=== PATIENT | male | born 1940 | race Caucasian/White ===

== ENCOUNTER 2016-09-21 22:51 | Inpatient (IN) ==
--- NOTE | 2016-09-22 02:07 | Internal Med History&Physical ---
<JosesitoAurora Ann - Last Filed: 09/22/16 04:24> Date of Encounter: 09/22/16 Time of Encounter: 01:56 Assessment and Plan (1) Pneumonia Current visit: No Status: Suspected CXR with b/l infiltration vs edema WBC 12.6 start levoquin bronchodilator therapy IV steroids Respiratory panel flu- supportive care O2 as needed for O2>92 Qualifiers: Pneumonia type: due to unspecified organism Laterality: bilateral Lung location: unspecified part of lung Qualified Code(s): J18.9 - Pneumonia, unspecified organism (2) Respiratory distress Current visit: Yes Status: Acute infectious vs cardiac vs pulm edema, atelectasis, pulmonary vasculature hypoxia on ABG:pH 7.46 with pO2 of 60 EKG with A fib RVR CTA monitor renal fxn ECHO RIP panel O2 as needed abx steriods bronchodilator therapy supportive care (3) Suspected respiratory disease Current visit: Yes Status: Acute (4) Leukocytosis Current visit: Yes Status: Acute WBC 12.6 abx recheck labs Qualifiers: Leukocytosis type: unspecified Qualified Code(s): D72.829 - Elevated white blood cell count, unspecified (5) Tobacco abuse Current visit: Yes Status: Acute nicotine patch prn (6) Dysarthria Current visit: Yes Status: Acute uncertain etiology: previous CVA vs underlying cognitive impairment no focal deficits (7) Atrial fibrillation with RVR Current visit: No Status: Chronic continue home meds (8) History of stroke Current visit: Yes Status: Acute (9) HTN (hypertension) Current visit: Yes Status: Acute (10) Hypothyroid Current visit: Yes Status: Acute Internal Medicine - H&P: HPI Chief complaint: dyspnea Admitted From: Emergency Dept Plans for Post Hospital Care: Home History of present illness: Mr. Phillips is a 75 year old male transferred from [place]. PMHx afib, HTN, strokex2,DM c/o dyspnea and increased work of breathing for 3-4 days. pt states that he has been short of breath, has been working harder to breath with an increased rate of respiration. He has also had a non productive cough, increased fatigue with decreased appetite. States he has been sleeping much more than usual and is still feeling unrested and has "felt warm" Pt states that leaning forward and laying flat in bed make his shortness of breath worse. Sitting straight improve it somewhat. Pt denies trauma,falls,headache, change in vision, chills, CP, palpitations, abd pain, change in urinary or bM Past Med Surg Social Fam HX - Past Medical History Medical history: atrial fibrillation, CVA, diabetes, GERD, hyperlipidemia, hypertension, thyroid disease, other Psychiatric history: no psych history - Social History Smoking Status: Current every day smoker Packs per day: .5-1ppd Smokeless Tobacco Status: No Alcohol use: none Drug use: none Current living situation: Home, With Family - Family History Mother Living Status: Hx Family Cardiac Disorders: Yes Hx Family Respiratory Disorders: No Hx Family Cancer: No Hx Family GI Disorders: No Hx Family Genitourinary Disorders: No Hx Family Endocrine Disorder: No Hx Family Musculoskeletal Disorders: No Hx Family Neuromuscular Disorders: No Hx Family Neurologic Disorders: No Hx Family HEENT Disorders: No Hx Family Autoimmune Disorders: No Hx Family Reproductive Disorders: No Hx Family Psychosocial Disorders: No Hx Family Medical Disorders: No Father Living Status: Hx Family Cardiac Disorders: No Hx Family Respiratory Disorders: No Hx Family Cancer: No Hx Family GI Disorders: No Hx Family Genitourinary Disorders: No Hx Family Endocrine Disorder: Yes (DM) Hx Family Musculoskeletal Disorders: No Hx Family Neuromuscular Disorders: No Hx Family Neurologic Disorders: No Hx Family HEENT Disorders: No Hx Family Autoimmune Disorders: No Hx Family Reproductive Disorders: No Hx Family Psychosocial Disorders: No Hx Family Medical Disorders: No Internal Medicine - H&P: Meds Allopurinol [Zyloprim 100 MG] 100 mg PO DAILY 09/21/16 [History] Aspirin [Ecotrin] 325 mg PO DAILY 09/21/16 [History] Digoxin [Lanoxin] 0.25 mg PO DAILY 09/21/16 [History] Diltiazem CD (24hr) [Cardizem CD] 240 mg PO DAILY 09/21/16 [History] Docusate [Colace] 100 mg PO TID 09/21/16 [History] Gemfibrozil [Lopid] 600 mg PO BIDWM 09/21/16 [History] GlipiZIDE [Glipizide ER] 10 mg PO BID 09/21/16 [History] Hydrochlorothiazide 25 mg PO DAILY 09/21/16 [History] Levothyroxine [Synthroid] 25 mcg PO DAILY 09/21/16 [History] Lisinopril [Zestril] 20 mg PO DAILY 09/21/16 [History] Metformin HCl [Glucophage] 1,000 mg PO BID 09/21/16 [History] Metoprolol [Lopressor] 50 mg PO BID 09/21/16 [History] Polyethylene Glycol 3350 [MiraLAX Powder Bulk 17.9 Oz] 1 scoop PO DAILY [History] Pravastatin Sodium [Pravachol] 40 mg PO HS 09/21/16 [History] Warfarin [Coumadin] 5 mg PO 1800 09/21/16 [History] Allergies No Known Allergies Allergy (Verified 09/21/16 20:05) All Systems PM: A 10-system review of systems was performed and is negative for pertinent findings except as documented above in the HPI. - Constitutional Constitutional: fatigue, weakness, no chills, no fever(s), no falls - EENT Eyes: no change in vision, no pain - Cardiovascular Cardiovascular ROS IM: irregular heart rhythm (chronic), no chest pain, no diaphoresis, no edema, no lightheadedness - Respiratory Respiratory: cough (dry), dyspnea, dyspnea on exertion, no hemoptysis, no pain on inspiration, no excessive phlegm production, no pain with cough - Gastrointestinal Gastrointestinal: no abdominal pain, no constipation, no diarrhea, no nausea, no vomiting - Genitourinary Genitourinary ROS male: no dysuria, no flank pain - Musculoskeletal Musculoskeletal ROS IM: no numbness, no tingling - Integumentary Integumentary IM: no rash, no unusual bruising - Neurological Neurological ROS: no frequent falls, no headache(s) - Psychiatric Psychiatric: abnormal sleep pattern (increased fatigue and sleep) - Constitutional Vitals: Temp Pulse Resp BP Pulse Ox 97.5 F L 96 20 135/85 93 L 09/22/16 01:02 09/22/16 01:02 09/22/16 01:02 09/22/16 01:02 09/22/16 01:02 General appearance: Present: cooperative, no acute distress - Head Head exam: Present: atraumatic, normocephalic - Eye Eye exam: Present: EOMI, conjuntiva pink, sclera anicteric - ENT ENT exam: Present: mucous membranes moist - Neck Neck exam general surgery: Present: full ROM - Respiratory Respiratory exam: Present: decreased breath sounds, rales (in b/l bases, fine crackles ), tachypnea (mild). Absent: accessory muscle use, chest wall tenderness, wheezes - Expanded Respiratory Exam Location: decreased breath sounds: Left, Right, Lower, rales: Left, Right, Lower (with fine crackles) - Cardiovascular Cardiovascular exam: Present: irregular rhythm, RRR, +S1, +S2. Absent: JVD - GI/Abdominal GI/Abdominal exam: Present: normal bowel sounds, soft, no peritoneal signs. Absent: tenderness - Extremities Exam Extremities exam: Present: warm. Absent: calf tenderness, cyanotic, pedal edema - Neurological Exam Neurological exam: Present: alert, speech deficit (dsyarthria, memory difficulty ). Absent: facial droop - Expanded Neurological Exam Neurological exam expanded: Present: memory loss-recent event, memory loss- remote event - Skin Skin exam: Present: pallor Additional comments: eccymosis and bruising on B/L UE <Adonis Patterson - Last Filed: 09/22/16 06:36> Assessment and Plan (1) Acute and chronic respiratory failure with hypoxia Current visit: Yes Status: Acute . (2) SIRS due to infectious process with acute organ dysfunction Current visit: Yes Status: Acute . (3) Interstitial pneumonitis Current visit: Yes Status: Acute . (4) CVA, old, cognitive deficits Current visit: Yes Status: Chronic . (5) CVA, old, dysarthria Current visit: Yes Status: Chronic . (6) CVA, old, hemiparesis Current visit: Yes Status: Chronic . (7) HLD (hyperlipidemia) Current visit: Yes Status: Chronic . Qualifiers: Hyperlipidemia type: unspecified Qualified Code(s): E78.5 - Hyperlipidemia , unspecified (8) Nicotine dependence with nicotine-induced disorder Current visit: Yes Status: Chronic . Qualifiers: Nicotine product type: cigarettes Qualified Code(s): F17.219 - Nicotine dependence, cigarettes, with unspecified nicotine-induced disorders (9) Type 2 diabetes mellitus Current visit: Yes Status: Chronic . Qualifiers: Diabetes mellitus complication status: with unspecified complications Diabetes mellitus termite treater insulin use: without termite treater use Qualified Code( s): E11.8 - Type 2 diabetes mellitus with unspecified complications (10) Chronic atrial fibrillation Current visit: Yes Status: Chronic . (11) Acute bronchitis and bronchiolitis Current visit: Yes Status: Acute . (12) Chronic anticoagulation Current visit: Yes Status: Chronic . (13) Anemia Current visit: Yes Status: Chronic . Qualifiers: Anemia type: unspecified type Qualified Code(s): D64.9 - Anemia, unspecified (14) Lactic acid acidosis Current visit: Yes Status: Acute . (15) Elevated brain natriuretic peptide (BNP) level Current visit: Yes Status: Acute . (16) Dehydration Current visit: Yes Status: Acute . (17) Diabetes mellitus with proteinuric diabetic nephropathy Current visit: Yes Status: Chronic . (18) CAP (community acquired pneumonia) Current visit: Yes Status: Acute . (19) Debility, unspecified Current visit: Yes Status: Chronic . (20) At risk for acid-base imbalance Current visit: Yes Status: Acute . (21) At risk for accident in home Current visit: Yes Status: Acute . (22) At risk for abnormal gastrointestinal motility Current visit: Yes Status: Acute . (23) At risk for abnormal blood glucose level Current visit: Yes Status: Acute . (24) At risk for acute ischemic cardiac event Current visit: Yes Status: Acute . (25) At risk for acute confusion Current visit: Yes Status: Acute . (26) At risk for activity intolerance Current visit: Yes Status: Acute . (27) Atrial fibrillation with RVR Current visit: Yes Status: Acute (28) HTN (hypertension) Current visit: Yes Status: Chronic Qualifiers: Hypertension type: unspecified secondary hypertension Qualified Code(s): I15.9 - Secondary hypertension, unspecified; I15 - Secondary hypertension (29) Hypothyroid Current visit: Yes Status: Chronic Qualifiers: Hypothyroidism type: unspecified Qualified Code(s): E03.9 - Hypothyroidism , unspecified Internal Medicine - H&P: HPI Admitted From: Hospital to Hospital Transfer (Hospital transfer from [facility] ED) History of present illness: Mr. Phillips is a 75 year old male was admitted to [facility] as a hospital to hospital transfer from [facility] E and a persistent nonproductive cough. D where he presented the coronary family via EMS services from home with complaints of aggressive difficulty in breathing. Initial pulse oximetry measurements were low in the 70-80% range necessitating initiation of supplemental oxygen and ultimately BiPAP therapy. He was febrile, incontinent of urine, generally weak with decline in ability to complete independent activities of daily living. Patient's history is complicated by late manifestations of old cerebrovascular accidents x2. He is reported to be compliant with his Coumadin therapy and management of his increased risk for embolic strokes due to his chronic atrial fibrillation. He continues to smoke however. Presents with apparent acute on chronic hypoxic respiratory failure in the setting of acute on chronic bronchitis-bronchiolitis exacerbation. Systemic inflammatory response syndrome and sepsis criteria are present upon admission. The patient was visited and interviewed and examined. I examined this patient and my medical decision-making was reviewed with the Resident Physician, Dr. Aurora Bellamy. For this encounter, I have reviewed the documentation, treatment plan, and medical decision making. I agree with the documented findings, disposition and treatment plan as described except to the extent set forth below. Cumulative laboratory and radiographic database was reviewed, considered and discussed. Given the patient's presenting concerns, past medical history, clinical findings and symptoms, he is admitted at this time to undergo further evaluation and disposition. Past Med Surg Social Fam HX - Past Medical History Source: patient, old records reviewed, obtained from family Medical history: arthritis, atrial fibrillation, COPD, CVA, diabetes, GERD, hyperlipidemia, hypertension, thyroid disease, other (Chronic constipation. Hyperuricemia. History of gout. Chronic anticoagulation.) Psychiatric history: other - Past Surgical History Surgical History: cataract, orthopedic, other (Lumbar spine surgery.), other - Social History Smoking Status: Current every day smoker Packs per day: .5-1ppd+ >50yrs Occupational status: retired Current living situation: Home, With Family Activity Level: Independent ambulation, Uses cane/walker, Mostly sedentary Recent Out of Country Travel Within the Last 8 Weeks: No Exposure or Possible Exposure to Illness During Travel: No All Systems PM: A 10-system review of systems was performed and is negative for pertinent findings except as documented above in the HPI. - Constitutional Vitals: Temp Pulse Resp BP Pulse Ox 98.2 F 72 18 116/77 92 L 09/22/16 03:40 09/22/16 03:40 09/22/16 04:13 09/22/16 03:40 09/22/16 04:16 Internal Med - H&P Results - Labs CBC & Chem 7: 09/22/16 04:29 09/22/16 04:29 Labs: Short CBC 09/22/16 Range/Units 04:29 WBC 11.2 H (4.3-11.1) K/mcL Hgb 10.3 L (12.9-16.9) g/dL Hct 33.5 L (37.5-50.1) % Plt Count 386 (140-400) K/mcL Neutrophils # 7.4 (1.6-8.9) K/mcL BMP 09/22/16 04:29 Sodium 137 Potassium 4.3 Chloride 104 Carbon Dioxide 22 BUN 15 Creatinine 0.81 Glucose 179 H Calcium 8.3 L Cardiac Enzymes 09/22/16 Range/Units 04:29 Troponin I 0.02 (0-0.03) ng/mL Liver Function 09/22/16 Range/Units 04:29 Total Bilirubin 0.4 (0.2-1.2) mg/dL AST 10 (5-34) Units/L ALT < 6 (0-55) Units/L Alkaline Phosphatase 57 (38-126) Units/L Albumin 2.4 L (3.5-5.0) g/dL Vital Signs Temp Pulse Resp BP Pulse Ox 09/22/16 04:16 92 L 09/22/16 04:13 18 92 L 09/22/16 03:40 98.2 F 72 20 116/77 93 L 09/22/16 01:02 97.5 F L 96 20 135/85 93 L Intake and Output 09/21/16 09/21/16 09/22/16 15:59 23:59 07:59 Other: Weight 86 kg Blood Glucose* 177 Patient Weight 09/22/16 23:59 Weight 86 kg 09/22/16 04:10 ABG pH 7.46 H ABG pCO2 34 L ABG pO2 55 L ABG HCO3 24.2 ABG Total CO2 25.2 ABG O2 Saturation 90 L ABG Base Excess 0.8 Abnormal lab results WBC 11.2 K/mcL (4.3-11.1) H 09/22/16 04:29 RBC 3.90 M/mcL (4.19-5.50) L 09/22/16 04:29 Hgb 10.3 g/dL (12.9-16.9) L 09/22/16 04:29 Hct 33.5 % (37.5-50.1) L 09/22/16 04:29 MCH 26.4 pg (28.0-33.3) L 09/22/16 04:29 MCHC 30.7 g/dL (31.6-35.5) L 09/22/16 04:29 RDW 14.6 % (11.5-14.5) H 09/22/16 04:29 APTT 44.6 Seconds (26.0-36.0) H 09/22/16 04:29 ABG pH 7.46 pH Units (7.32-7.45) H 09/22/16 04:10 ABG pCO2 34 mmHg (35-45) L 09/22/16 04:10 ABG pO2 55 mmHg (85-104) L 09/22/16 04:10 ABG O2 Saturation 90 % (95-98) L 09/22/16 04:10 Glucose 179 mg/dL (70-99) H 09/22/16 04:29 Calcium 8.3 mg/dL (8.6-10.8) L 09/22/16 04:29 Albumin 2.4 g/dL (3.5-5.0) L 09/22/16 04:29 Globulin 4.7 g/dL (2.4-3.5) H 09/22/16 04:29 Albumin/Globulin Ratio 0.5 (1.1-2.2) L 09/22/16 04:29 Allergies Allergy/AdvReac Type Severity Reaction Status Date / Time No Known Allergies Allergy Verified 09/21/16 20:05 Laboratory Results WBC 11.2 K/mcL (4.3-11.1) H 09/22/16 04:29 RBC 3.90 M/mcL (4.19-5.50) L 09/22/16 04:29 Hgb 10.3 g/dL (12.9-16.9) L 09/22/16 04:29 Hct 33.5 % (37.5-50.1) L 09/22/16 04:29 MCV 85.9 fL (83.0-100.0) 09/22/16 04:29 MCH 26.4 pg (28.0-33.3) L 09/22/16 04:29 MCHC 30.7 g/dL (31.6-35.5) L 09/22/16 04:29 RDW 14.6 % (11.5-14.5) H 09/22/16 04:29 Plt Count 386 K/mcL (140-400) 09/22/16 04:29 MPV 10.5 fL (9.4-12.4) 09/22/16 04:29 Immature Gran % 0.8 % (0-4) 09/22/16 04:29 Seg Neutrophils % 66.3 % 09/22/16 04:29 Lymphocytes % 20.5 % 09/22/16 04:29 Monocytes % 10.3 % 09/22/16 04:29 Eosinophils % 1.5 % 09/22/16 04:29 Basophils % 0.6 % 09/22/16 04:29 Neutrophils # 7.4 K/mcL (1.6-8.9) 09/22/16 04:29 Lymphocytes # 2.3 K/mcL (0.6-4.6) 09/22/16 04:29 Monocytes # 1.2 K/mcL (0.0-1.3) 09/22/16 04:29 Eosinophils # 0.2 K/mcL (0.0-0.6) 09/22/16 04:29 Basophils # 0.1 K/mcL (0.0-0.2) 09/22/16 04:29 APTT 44.6 Seconds (26.0-36.0) H 09/22/16 04:29 ABG pH 7.46 pH Units (7.32-7.45) H 09/22/16 04:10 ABG pCO2 34 mmHg (35-45) L 09/22/16 04:10 ABG pO2 55 mmHg (85-104) L 09/22/16 04:10 ABG HCO3 24.2 mEQ/L (21-27) 09/22/16 04:10 ABG Total CO2 25.2 mEq/L (20-26) 09/22/16 04:10 ABG O2 Saturation 90 % (95-98) L 09/22/16 04:10 ABG Base Excess 0.8 mEq/L (-2.0 to 3.0) 09/22/16 04:10 Blood Gas Modality nc 09/22/16 04:10 Inspired O2 36 % 09/22/16 04:10 Sodium 137 mEq/L (136-145) 09/22/16 04:29 Potassium 4.3 mEq/L (3.5-4.5) 09/22/16 04:29 Chloride 104 mEq/L (98-109) 09/22/16 04:29 Carbon Dioxide 22 mEq/L (19-29) 09/22/16 04:29 BUN 15 mg/dL (8-26) 09/22/16 04:29 Creatinine 0.81 mg/dL (0.72-1.25) 09/22/16 04:29 Est GFR ( Amer) > 60 (> 60) 09/22/16 04:29 Est GFR (Non-Af Amer) > 60 (> 60) 09/22/16 04:29 BUN/Creatinine Ratio 19 (6-26) 09/22/16 04:29 Glucose 179 mg/dL (70-99) H 09/22/16 04:29 Calculated Osmolality 289 (280-300) 09/22/16 04:29 Calcium 8.3 mg/dL (8.6-10.8) L 09/22/16 04:29 Total Bilirubin 0.4 mg/dL (0.2-1.2) 09/22/16 04:29 AST 10 Units/L (5-34) 09/22/16 04:29 ALT < 6 Units/L (0-55) 09/22/16 04:29 Alkaline Phosphatase 57 Units/L (38-126) 09/22/16 04:29 Troponin I 0.02 ng/mL (0-0.03) 09/22/16 04:29 Serum Total Protein 7.1 g/dL (6.0-8.3) 09/22/16 04:29 Albumin 2.4 g/dL (3.5-5.0) L 09/22/16 04:29 Globulin 4.7 g/dL (2.4-3.5) H 09/22/16 04:29 Albumin/Globulin Ratio 0.5 (1.1-2.2) L 09/22/16 04:29 - ABG Interpretation ABG results: 09/22/16 04:10 ABG pH 7.46 H ABG pCO2 34 L ABG pO2 55 L ABG HCO3 24.2 ABG Total CO2 25.2 ABG O2 Saturation 90 L ABG Base Excess 0.8 - Attending Attestation My signature below is to certify that this patient is under my care and that I, or the Resident Physician, Dr. Aurora Bellamy, working with me, has had a face -to-face encounter with this patient. Care has been reviewed and discussed in detail with the patient and family. Questions addressed. Advanced directive discussion briefly addressed. The patient does not declare any restrictions at this time. Outpatient medication schedules, confirmed to facilitate its appropriate. Reconciliation of home treatments including adjustments, substitutions and reintroduction into the treatment regimen will address necessary maintenance therapies for chronic pre-existing medical conditions. Smoke cessation counseling briefly addressed. Patient accepts nicotine substitution during this hospitalization. Hospital course will be dictated by clinical findings, treatment response and potential consultative interventions. Consultative opinions will be sought as clinical circumstances justify. The patient is at risk for further clinical decline and morbidity given his presenting complaint, findings and comorbidities. The condition is serious. Prognosis is guarded. CODE STATUS is reported as full.
[2016-09-22] MEDS ORDERED: Acetaminophen 325 MG TABLET PO PRN (03:02)
[2016-09-22] MEDS ORDERED: *HR* Promethazine 25 MG/ML VIAL IVP PRN (03:02)
[2016-09-22] MEDS ORDERED: methylPREDNISolone 125 MG/2 ML VIAL IVP ONE (03:18)
[2016-09-22] MEDS ORDERED: Albuterol 2.5 MG/3 ML NEBULIZER IH PRN (04:02)
[2016-09-22] MEDS: Ipratropium/Albuterol Neb 3 ML IH SCH ×4 (04:12→23:10)
[2016-09-22] MEDS ORDERED: Nicotine 21 MG PATCH.TD24 TD PRN (04:25)
[2016-09-22] MEDS ORDERED: D5% in Water 1,000 ML IV PRN (04:28)
[2016-09-22] MEDS ORDERED: *HR* Dextrose 50 % in Water (Syg) 50 ML SYRINGE IVP PRN (04:28)
[2016-09-22] MEDS ORDERED: Dextrose Gel 15 GM PO PRN ×2 (04:28)
[2016-09-22 04:31] LABS: ABG Base Excess 0.8 mEq/L (-2.0 to 3.0); ABG HCO3 24.2 mEQ/L (21-27); ABG Oxygen Saturation 90 % (95-98); ABG PCO2 34 mmHg (35-45); ABG PH 7.46 pH Units (7.32-7.45); ABG PO2 55 mmHg (85-104); ABG TCO2 25.2 mEq/L (20-26)
[2016-09-22 04:34] LABS: Blood Gas FiO2 36 %
[2016-09-22 05:12] LABS: Basophils # 0.1 K/mcL (0.0-0.2); Basophils % 0.6 %; Eosinophils # 0.2 K/mcL (0.0-0.6); Eosinophils % 1.5 %; Hematocrit 33.5 % (37.5-50.1); Hemoglobin 10.3 g/dL (12.9-16.9); Immature Granulocytes % 0.8 % (0-4); Lymphocytes # 2.3 K/mcL (0.6-4.6); Lymphocytes % 20.5 %; Mean Corpuscular HGB Conc 30.7 g/dL (31.6-35.5); Mean Corpuscular Hemoglobin 26.4 pg (28.0-33.3); Mean Corpuscular Volume 85.9 fL (83.0-100.0); Mean Platelet Volume 10.5 fL (9.4-12.4); Monocytes # 1.2 K/mcL (0.0-1.3); Monocytes % 10.3 %; Neutrophils # 7.4 K/mcL (1.6-8.9); Platelet Count 386 K/mcL (140-400); Red Cell Distribution Width 14.6 % (11.5-14.5); Segmented Neutrophils % 66.3 %
[2016-09-22 05:28] LABS: Activated Partial Thrombo Time 44.6 Seconds (26.0-36.0)
[2016-09-22 05:34] LABS: Albumin 2.4 g/dL (3.5-5.0); Albumin/Globulin Ratio 0.5 (1.1-2.2); Alkaline Phosphatase 57 Units/L (38-126); Aspartate Amino Transferase 10 Units/L (5-34); BUN/Creatinine Ratio 19 (6-26); Bilirubin,Total 0.4 mg/dL (0.2-1.2); Blood Urea Nitrogen 15 mg/dL (8-26); Calcium 8.3 mg/dL (8.6-10.8); Carbon Dioxide 22 mEq/L (19-29); Chloride 104 mEq/L (98-109); Globulin 4.7 g/dL (2.4-3.5); Glucose 179 mg/dL (70-99); Osmolality,Calculated 289 (280-300); Potassium 4.3 mEq/L (3.5-4.5); Sodium 137 mEq/L (136-145); Total Protein 7.1 g/dL (6.0-8.3); eGFR For African Americans > 60 (> 60); eGFR For Non-African Americans > 60 (> 60)
[2016-09-22 05:37] LABS: Alanine Aminotransferase < 6 Units/L (0-55)
[2016-09-22] MEDS ORDERED: Naloxone 0.4 MG/ML INJ IVP PRN (05:48)
[2016-09-22] MEDS ORDERED: *HR* Morphine 2 MG/ML SYRINGE IVP PRN (05:48)
[2016-09-22] MEDS ORDERED: *HR* OxyCODONE Immed Rel 5 MG TABLET PO PRN ×3 (05:48→14:13)
[2016-09-22] MEDS ORDERED: 0.9 % Sodium Chloride 1,000 ML IVC SCH (06:00)
[2016-09-22] MEDS ORDERED: Insulin LISPRO 300 UNITS/3 ML VIAL SQ SCH (06:00)
[2016-09-22] MEDS ORDERED: Benzonatate 100 MG CAPSULE PO PRN (06:37)
[2016-09-22] MEDS: MethylPREDNISolone 40 MG/ML VIAL IVP SCH ×3 (06:41→17:42)
[2016-09-22] MEDS ORDERED: MethylPREDNISolone 40 MG/ML VIAL IVP SCH (08:00)
[2016-09-22 08:19] LABS: Adenovirus Not Detected (Not Detect); Bordetella Pertussis Not Detected (Not Detect); Chlamydophila pneumoniae Not Detected (Not Detect); Coronavirus 229E Not Detected (Not Detect); Coronavirus HKU1 Not Detected (Not Detect); Coronavirus NL63 Not Detected (Not Detect); Coronavirus OC43 Not Detected (Not Detect); Human Metapneumovirus Not Detected (Not Detect); Human Rhinovirus/Enterovirus Not Detected (Not Detect); Influenza A Subtype 2009 H1 Not Detected (Not Detect); Influenza A Untypeable Not Detected (Not Detect); Influenza B Not Detected (Not Detect); Mycoplasma pneumoniae Not Detected (Not Detect); Parainfluenza Virus 1 Not Detected (Not Detect); Parainfluenza Virus 2 Not Detected (Not Detect); Parainfluenza Virus 3 Not Detected (Not Detect); Parainfluenza Virus 4 Not Detected (Not Detect); Respiratory Syncytial Virus Not Detected (Not Detect)
[2016-09-22] MEDS: hydroCHLOROthiazide 25 MG TABLET PO SCH (08:42)
[2016-09-22] MEDS: Lisinopril 20 MG TABLET PO SCH (08:43)
[2016-09-22] MEDS: Insulin LISPRO 300 UNITS/3 ML VIAL SQ SCH ×4 (08:59→22:24)
[2016-09-22] MEDS ORDERED: Levothyroxine 25 MCG TABLET PO SCH (09:00)
[2016-09-22] MEDS: Diltiazem CD (24hr) 240 MG CAPSULE PO SCH (09:28)
[2016-09-22] MEDS: *HR* Digoxin 0.25 MG TABLET PO SCH (09:28)
[2016-09-22] MEDS: Levofloxacin 750 MG/150 ML 750 MG/150 ML BAG IVPB SCH (09:35)
--- NOTE | 2016-09-22 09:40 | Internal Med Progress Note ---
Date of Encounter: 09/22/16 Time of Encounter: 09:38 - Assessment and plan (1) Sepsis Current Visit: Yes Status: Acute Assessment and plan: Hypoxic respiratory failure secondary to acute pulmonary edema from possible CHF diastolic versus systolic exacerbated by acute on chronic atrial fibrillation with rapid ventricular response versus acute COPD exacerbation secondary to sepsis due to community-acquired pneumonia Start Lasix iv , strict I's and O's CT scan of the chest ordered Continue Levaquin, continue Solu-Medrol and oxygen therapy Tests for Legionella and Streptococcus, was negative for viral panel Discontinue IV fluids, echocardiogram ordered Qualifiers: Sepsis type: sepsis due to unspecified organism Qualified Code(s): A41.9 - Sepsis, unspecified organism (2) Pulmonary edema Current Visit: Yes Status: Acute Qualifiers: Chronicity: acute Qualified Code(s): J81.0 - Acute pulmonary edema (3) Atrial fibrillation with RVR Current Visit: Yes Status: Acute Assessment and plan: Likely exacerbated by CHF and possible pneumonia Continue metoprolol, digoxin, diltiazem and confirm doses Continue Coumadin (4) Respiratory distress Current Visit: Yes Status: Acute (5) Leukocytosis Current Visit: Yes Status: Acute Assessment and plan: Likely secondary to sepsis Qualifiers: Leukocytosis type: unspecified Qualified Code(s): D72.829 - Elevated white blood cell count, unspecified (6) Tobacco abuse Current Visit: Yes Status: Acute Assessment and plan: Smoking cessation counseling (7) History of stroke Current Visit: Yes Status: Acute Assessment and plan: Continue aspirin and Coumadin (8) Hypothyroid Current Visit: Yes Status: Chronic Qualifiers: Hypothyroidism type: unspecified Qualified Code(s): E03.9 - Hypothyroidism , unspecified (9) CVA, old, cognitive deficits Current Visit: Yes Status: Chronic (10) Type 2 diabetes mellitus Current Visit: Yes Status: Chronic Assessment and plan: Continue insulin sliding scale Qualifiers: Diabetes mellitus complication status: with unspecified complications Diabetes mellitus halfway insulin use: without lecturer in marketing use Qualified Code( s): E11.8 - Type 2 diabetes mellitus with unspecified complications - Subjective Interval history: The patient feels less short of breath and yesterday, denies bringing up any phlegm. Denies any chest pain but complains of palpitations, was very tachycardic. No abdominal pain, no dysuria, no fevers - Constitutional Vitals: Temp Pulse Resp BP Pulse Ox 98.1 F 106 16 105/83 91 L 09/22/16 07:06 09/22/16 07:06 09/22/16 07:06 09/22/16 07:06 09/22/16 07:06 General appearance: Present: cooperative, A&O X 3, no acute distress - Head Head exam: Present: atraumatic, normocephalic - Eye Eye exam: Present: PERRL, conjuntiva pink, sclera anicteric Pupils: Present: PERRL - Neck Neck exam general surgery: Present: supple, trachea midline. Absent: lymphadenopathy - Respiratory Respiratory exam: Present: CTAB, rales (Bilateral coarse crackles with no wheezing). Absent: accessory muscle use, rhonchi, wheezes - Cardiovascular Cardiovascular exam: Present: RRR, +S1, +S2. Absent: diastolic murmur, gallop, rubs, systolic murmur - GI/Abdominal GI/Abdominal exam: Present: normal bowel sounds, soft, no peritoneal signs. Absent: distended, tenderness - Extremities Exam Extremities exam: Present: pedal edema (+1 pitting edema both lower extremities) , warm, radial pulses palpable and symetrical. Absent: calf tenderness, cyanotic - Neurological Exam Neurological exam: Present: CN II-XII intact, oriented X3, no focal deficits. Absent: pronater drift, facial droop, speech deficit - Skin Skin exam: Present: dry, intact Internal Medicine: Result - Labs CBC & Chem 7: 09/22/16 04:29 09/22/16 04:29 Labs: Short CBC 09/22/16 Range/Units 04:29 WBC 11.2 H (4.3-11.1) K/mcL Hgb 10.3 L (12.9-16.9) g/dL Hct 33.5 L (37.5-50.1) % Plt Count 386 (140-400) K/mcL Neutrophils # 7.4 (1.6-8.9) K/mcL BMP 09/22/16 04:29 Sodium 137 Potassium 4.3 Chloride 104 Carbon Dioxide 22 BUN 15 Creatinine 0.81 Glucose 179 H Calcium 8.3 L Cardiac Enzymes 09/22/16 Range/Units 04:29 Troponin I 0.02 (0-0.03) ng/mL Liver Function 09/22/16 Range/Units 04:29 Total Bilirubin 0.4 (0.2-1.2) mg/dL AST 10 (5-34) Units/L ALT < 6 (0-55) Units/L Alkaline Phosphatase 57 (38-126) Units/L Albumin 2.4 L (3.5-5.0) g/dL - ABG Interpretation ABG results: ABG ABG pH 7.46 pH Units (7.32-7.45) H 09/22/16 04:10 ABG pCO2 34 mmHg (35-45) L 09/22/16 04:10 ABG pO2 55 mmHg (85-104) L 09/22/16 04:10 ABG O2 Saturation 90 % (95-98) L 09/22/16 04:10 Consult Discharge Plan - Plan Referrals: Pal Power MD [Primary Care Provider] -
[2016-09-22] MEDS ORDERED: Furosemide 40 MG/4 ML VIAL IV SCH (09:45)
[2016-09-22] MEDS: Aspirin Enteric Coated 325 MG Tablet PO SCH (12:04)
[2016-09-22 14:36] LABS: INR 2.3; Prothrombin Time 25.9 Seconds (9.4-12.1)
--- NOTE | 2016-09-22 16:39 | Electrocardiograph Report ---
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
[2016-09-22] MEDS: *HR* Warfarin 2.5 MG TABLET PO SCH (17:40)
--- NOTE | 2016-09-22 17:51 | ECHO - Doppler Report ---
Echocardiogram Name: Santy Phillips Date of Study: 09/22/2016 Date: 1940 Ht: 68.0 in Medical Record#: [id number] Age: 75 Wt: 189.0 lb Gender: Male BSA: 2 Order #: [id number] Location: [facility] Room #: [id number] Reading Physician: Glynn Sheriff DO, DIONNE, AMI ALFRED Chairman & Ceo: Marv Bush RN Ordering Physician: Aurora Bellamy DO Primary Physician: Pal Power MD Indications: Arrhythmia Impressions: LVEF 60-65%. Normal LV chamber size, wall thickness and function. Indeterminate diastolic function. Normal right ventricular structure and function. Moderate to severely dilated left atrium. Mild mitral regurgitation. Mild-moderate tricuspid regurgitation. Mild pulmonary hypertension. Left Ventricular Wall Motion: Rest Echo Findings All wall segments showed normal motion. Findings: Study Quality * Technically adequate exam. ECG Findings * Atrial fibrillation with a bundle branch block. Left Ventricle * LVEF 60-65%. * Normal LV chamber size, wall thickness and function. * Indeterminate diastolic function. Right Ventricle * Normal right ventricular structure and function. Left Atrium * Moderate to severely dilated left atrium. Right Atrium * Moderately dilated right atrium. Interatrial Septum * No evidence of PFO by color Doppler. Aortic Valve * Trileaflet aortic valve with normal function. * No aortic regurgitation. * No aortic stenosis. Mitral Valve * Mild mitral annular calcification * Mild mitral regurgitation. * No mitral stenosis. Tricuspid Valve * Normal tricuspid valve structure. * Mild-moderate tricuspid regurgitation. * Mild pulmonary hypertension. Pulmonic Valve * Normal pulmonic valve structure and function. * Trace pulmonic regurgitation. Aorta * Normally sized aortic root. Pericardium * The pericardium appears normal. IVC * Normal IVC dimensions and inspiratory collapse. Pulmonary Artery * Normal visualized portions of the main pulmonary artery. History Hypertension Diabetes Hypercholesteremia History of Smoking Years 50 Packs 0.5 Congestive Heart Failure 07/29/2014 a Previous Echo was performed. Measurements: BP: 125/ 72 2D Normal Values RVIDd: 3.30 cm <2.7 cm IVSd: 1.00 cm 0.6 - 1.0 cm LVIDd: 4.40 cm 3.7 - 5.6 cm LVPWd: 1.00 cm 0.6 - 1.1 cm LVIDs: 2.70 cm 1.5 - 3.6 cm LA: 4.50 cm 2.0 - 4.0cm %FS: 38.60 cm >25 % LVOT Diam: 2.00 cm LA volume: 131 Mitral Valve Peak E:1.22 m/sec Peak A:.37 m/sec E/A Ratio:3.3 Peak E' Lat Carlos:11.6 cm/s Peak E' Med Carlos:6.92 cm/s E/E' Lat Ratio:10.5 E/E' Med Ratio:17.6 Aortic Valve AI pressure Half-time: 633.00 msec Tricuspid Valve TV Regurg Peak Grad: 34.00mmHg TV Regurg Peak Carlos: 2.91m/sec Updated by Glynn Sheriff DO, FACOrtega, AMI ALFRED on 09/22/2016 5:46:05 PM electronically signed on 09/22/2016 5:46:36 PM with status of Final Wall Motion Jha: 1=Normal, 2=Hypokinesis, 3=Akinesis, 4=Dyskinesis, 5=Aneurysmal, 6=Hyperkinetic, X=Not Visualized (Blank)=Missing
[2016-09-22] MEDS ORDERED: Warfarin perPT PO PRN (18:00)
[2016-09-22] MEDS ORDERED: *HR* Warfarin 5 MG TABLET PO SCH (18:00)
[2016-09-22] MEDS: Furosemide 40 MG/4 ML VIAL IV SCH (18:54)
[2016-09-22] MEDS: Cefepime HCl 1,000 MG in D5% in Water (Mini-Bag+) 100 ML IVPB SCH (19:59)
[2016-09-23] MEDS: MethylPREDNISolone 40 MG/ML VIAL IVP SCH ×5 (01:54→23:59)
[2016-09-23] MEDS: Ipratropium/Albuterol Neb 3 ML IH SCH ×4 (04:33→21:19)
[2016-09-23] MEDS: Levothyroxine 25 MCG TABLET PO SCH (06:42)
[2016-09-23] MEDS: Cefepime HCl 1,000 MG in D5% in Water (Mini-Bag+) 100 ML IVPB SCH ×2 (06:42→18:12)
[2016-09-23 07:08] LABS: INR 2.3; Prothrombin Time 25.9 Seconds (9.4-12.1)
[2016-09-23 07:18] LABS: BUN/Creatinine Ratio 23 (6-26); Blood Urea Nitrogen 25 mg/dL (8-26); Calcium 8.8 mg/dL (8.6-10.8); Carbon Dioxide 24 mEq/L (19-29); Chloride 102 mEq/L (98-109); Chol/HDL Ratio 6.3 (0-4.9); Cholesterol 208 mg/dL (< 200); Glucose 372 mg/dL (70-99); HDL Cholesterol 33 mg/dL (40-59); LDL Cholesterol,Calculated 147 mg/dL (0-99); Magnesium 1.5 mg/dL (1.6-2.6); Osmolality,Calculated 306 (280-300); Phosphorous 3.9 mg/dL (2.3-4.7); Potassium 4.4 mEq/L (3.5-4.5); Sodium 138 mEq/L (136-145); Triglycerides 138 mg/dL (< 150); eGFR For African Americans > 60 (> 60); eGFR For Non-African Americans > 60 (> 60)
[2016-09-23 07:21] LABS: Hemoglobin 9.7 g/dL (12.9-16.9); Mean Corpuscular HGB Conc 31.3 g/dL (31.6-35.5); Mean Corpuscular Hemoglobin 27.2 pg (28.0-33.3); Mean Corpuscular Volume 87.1 fL (83.0-100.0); Platelet Count 391 K/mcL (140-400); Red Blood Count 3.56 M/mcL (4.19-5.50); Red Cell Distribution Width 14.6 % (11.5-14.5)
[2016-09-23] MEDS: Insulin LISPRO 300 UNITS/3 ML VIAL SQ SCH ×4 (08:16→23:59)
[2016-09-23] MEDS: Aspirin Enteric Coated 325 MG Tablet PO SCH (08:19)
[2016-09-23] MEDS: *HR* Digoxin 0.25 MG TABLET PO SCH (08:24)
[2016-09-23] MEDS: Levofloxacin 750 MG/150 ML 750 MG/150 ML BAG IVPB SCH (08:32)
[2016-09-23] MEDS: Diltiazem CD (24hr) 240 MG CAPSULE PO SCH (08:45)
[2016-09-23] MEDS: hydroCHLOROthiazide 25 MG TABLET PO SCH (08:46)
[2016-09-23] MEDS: Lisinopril 20 MG TABLET PO SCH (08:47)
[2016-09-23] MEDS: Furosemide 40 MG/4 ML VIAL IV SCH ×2 (09:36→18:12)
--- NOTE | 2016-09-23 13:53 | Internal Med Progress Note ---
Date of Encounter: 09/23/16 Time of Encounter: 13:50 - Assessment and plan (1) Sepsis Current Visit: Yes Status: Acute Assessment and plan: Hypoxic respiratory failure secondary to acute pulmonary edema from possible acute diastolic CHF exacerbation with acute on chronic atrial fibrillation with rapid ventricular response in combination with acute COPD exacerbation secondary to sepsis due to community-acquired pneumonia Continue Lasix iv , strict I's and O's CT scan of the chest shows acute pulmonary edema with diffuse infiltrates/ possible pneumonia Continue Levaquin and cefepime day 2, continue Solu-Medrol and oxygen therapy High flow nasal cannula on 11 L High risk due to respiratory failure Tested negative for Legionella and Streptococcus, viral panel was negative Discontinued IV fluids, echocardiogram showed an ejection fraction of 60-65% with indeterminate diastolic function Qualifiers: Sepsis type: sepsis due to unspecified organism Qualified Code(s): A41.9 - Sepsis, unspecified organism (2) Pulmonary edema Current Visit: Yes Status: Acute Qualifiers: Chronicity: acute Qualified Code(s): J81.0 - Acute pulmonary edema (3) Atrial fibrillation with RVR Current Visit: Yes Status: Inactive Assessment and plan: Likely exacerbated by CHF and possible pneumonia Continue metoprolol, digoxin, diltiazem Continue Coumadin (4) Respiratory distress Current Visit: Yes Status: Acute (5) Leukocytosis Current Visit: Yes Status: Acute Assessment and plan: Likely secondary to sepsis Qualifiers: Leukocytosis type: unspecified Qualified Code(s): D72.829 - Elevated white blood cell count, unspecified (6) Tobacco abuse Current Visit: Yes Status: Acute Assessment and plan: Smoking cessation counseling (7) History of stroke Current Visit: Yes Status: Acute Assessment and plan: Continue aspirin and Coumadin (8) Hypothyroid Current Visit: Yes Status: Chronic Qualifiers: Hypothyroidism type: unspecified Qualified Code(s): E03.9 - Hypothyroidism , unspecified (9) CVA, old, cognitive deficits Current Visit: Yes Status: Chronic (10) Type 2 diabetes mellitus Current Visit: Yes Status: Chronic Assessment and plan: Continue insulin sliding scale Qualifiers: Diabetes mellitus complication status: with unspecified complications Diabetes mellitus residential insulin use: without petroleum terminal plant operator use Qualified Code( s): E11.8 - Type 2 diabetes mellitus with unspecified complications - Time Spent With Patient Greater than 35 minutes - Subjective Interval history: The patient feels less short of breath but his requirements of oxygen had increased to 11 L, denies bringing up any phlegm. Denies any chest pain but complains of palpitations, was very tachycardic. No abdominal pain, no dysuria , no fevers - Constitutional Vitals: Temp Pulse Resp BP Pulse Ox 98.1 F 76 18 97/59 95 09/23/16 11:11 09/23/16 11:22 09/23/16 11:22 09/23/16 11:22 09/23/16 11:22 General appearance: Present: cooperative, A&O X 3, no acute distress - Head Head exam: Present: atraumatic, normocephalic - Eye Eye exam: Present: PERRL, conjuntiva pink, sclera anicteric Pupils: Present: PERRL - Neck Neck exam general surgery: Present: supple, trachea midline. Absent: lymphadenopathy - Respiratory Respiratory exam: Present: CTAB, rales (Bibasilar crackles with wheezing). Absent: accessory muscle use, rhonchi, wheezes - Cardiovascular Cardiovascular exam: Present: RRR, +S1, +S2. Absent: diastolic murmur, gallop, rubs, systolic murmur - GI/Abdominal GI/Abdominal exam: Present: normal bowel sounds, soft, no peritoneal signs. Absent: distended, tenderness - Extremities Exam Extremities exam: Present: warm, radial pulses palpable and symetrical. Absent : calf tenderness, cyanotic, pedal edema - Neurological Exam Neurological exam: Present: CN II-XII intact, oriented X3, no focal deficits. Absent: pronater drift, facial droop, speech deficit - Skin Skin exam: Present: dry, intact Internal Medicine: Result - Labs CBC & Chem 7: 09/23/16 06:30 09/23/16 06:30 Labs: Short CBC 09/23/16 Range/Units 06:30 WBC 17.3 H D (4.3-11.1) K/mcL Hgb 9.7 L (12.9-16.9) g/dL Hct 31.0 L (37.5-50.1) % Plt Count 391 (140-400) K/mcL BMP 09/23/16 06:30 Sodium 138 Potassium 4.4 Chloride 102 Carbon Dioxide 24 BUN 25 D Creatinine 1.09 Glucose 372 H Calcium 8.8 Cardiac Enzymes 09/22/16 Range/Units 16:41 Troponin I 0.01 (0-0.03) ng/mL - ABG Interpretation ABG results: ABG ABG pH 7.46 pH Units (7.32-7.45) H 09/22/16 04:10 ABG pCO2 34 mmHg (35-45) L 09/22/16 04:10 ABG pO2 55 mmHg (85-104) L 09/22/16 04:10 ABG O2 Saturation 90 % (95-98) L 09/22/16 04:10 PT/INR, D-dimer PT 25.9 Seconds (9.4-12.1) H 09/23/16 06:30 - Impressions Impressions Chest CTA 09/22/16 08:40 IMPRESSION: No evidence of pulmonary embolism. Diffuse pulmonary disease, nonspecific but in the acute setting pulmonary edema is favored, with associated bilateral trace pleural effusions. There is prominence of the left atrium, therefore CHF is considered. D/ / Mohit Handy MD / Mohit Handy MD Interpreting Provider: Mohit Handy MD Consult Discharge Plan - Plan Referrals: Pal Power MD [Primary Care Provider] - 09/29/16 2:00 pm
[2016-09-23] MEDS ORDERED: Cefepime HCl 1,000 MG in D5% in Water (Mini-Bag+) 100 ML IVPB SCH (18:05)
[2016-09-23] MEDS: *HR* Warfarin 2.5 MG TABLET PO SCH (18:12)
[2016-09-24] MEDS: Ipratropium/Albuterol Neb 3 ML IH SCH ×4 (03:52→22:14)
[2016-09-24] MEDS: Cefepime HCl 1,000 MG in D5% in Water (Mini-Bag+) 100 ML IVPB SCH ×2 (06:25→16:59)
[2016-09-24] MEDS: MethylPREDNISolone 40 MG/ML VIAL IVP SCH ×3 (06:26→16:59)
[2016-09-24] MEDS: Levothyroxine 25 MCG TABLET PO SCH (06:27)
[2016-09-24 07:40] LABS: Hematocrit 30.9 % (37.5-50.1); Hemoglobin 9.4 g/dL (12.9-16.9); Mean Corpuscular HGB Conc 30.4 g/dL (31.6-35.5); Mean Corpuscular Volume 88.8 fL (83.0-100.0); Platelet Count 373 K/mcL (140-400); Red Blood Count 3.48 M/mcL (4.19-5.50); Red Cell Distribution Width 14.9 % (11.5-14.5)
[2016-09-24 07:48] LABS: INR 3.1; Prothrombin Time 35.1 Seconds (9.4-12.1)
[2016-09-24 07:52] LABS: BUN/Creatinine Ratio 38 (6-26); Calcium 8.5 mg/dL (8.6-10.8); Carbon Dioxide 22 mEq/L (19-29); Chloride 103 mEq/L (98-109); Glucose 328 mg/dL (70-99); Osmolality,Calculated 309 (280-300); Potassium 4.7 mEq/L (3.5-4.5); Sodium 138 mEq/L (136-145); eGFR For African Americans > 60 (> 60); eGFR For Non-African Americans > 60 (> 60)
[2016-09-24 07:53] LABS: Blood Urea Nitrogen 41 mg/dL (8-26)
[2016-09-24] MEDS: *HR* Digoxin 0.25 MG TABLET PO SCH (08:37)
[2016-09-24] MEDS: Aspirin Enteric Coated 325 MG Tablet PO SCH (08:37)
[2016-09-24] MEDS: Lisinopril 20 MG TABLET PO SCH (08:37)
[2016-09-24] MEDS: Diltiazem CD (24hr) 240 MG CAPSULE PO SCH (08:37)
[2016-09-24] MEDS: hydroCHLOROthiazide 25 MG TABLET PO SCH (08:37)
[2016-09-24] MEDS: Levofloxacin 750 MG/150 ML 750 MG/150 ML BAG IVPB SCH (08:38)
[2016-09-24] MEDS: Furosemide 40 MG/4 ML VIAL IV SCH ×2 (08:38→17:00)
[2016-09-24] MEDS: Insulin LISPRO 300 UNITS/3 ML VIAL SQ SCH ×6 (08:38→23:05)
--- NOTE | 2016-09-24 12:19 | Internal Med Progress Note ---
Date of Encounter: 09/24/16 Time of Encounter: 12:17 - Assessment and plan (1) Sepsis Current Visit: Yes Status: Acute Assessment and plan: Hypoxic respiratory failure secondary to acute pulmonary edema from possible acute diastolic CHF exacerbation with acute on chronic atrial fibrillation with rapid ventricular response in combination with acute COPD exacerbation secondary to sepsis due to community-acquired pneumonia Will have a long hospitalization , situation explained to family and the patient Continue Lasix iv , strict I's and O's CT scan of the chest shows acute pulmonary edema with diffuse infiltrates/ possible pneumonia Continue Levaquin and cefepime day 3, continue Solu-Medrol and oxygen therapy High flow nasal cannula on 11 L High risk due to respiratory failure Tested negative for Legionella and Streptococcus, viral panel was negative Discontinued IV fluids, echocardiogram showed an ejection fraction of 60-65% with indeterminate diastolic function Qualifiers: Sepsis type: sepsis due to unspecified organism Qualified Code(s): A41.9 - Sepsis, unspecified organism (2) Pulmonary edema Current Visit: Yes Status: Acute Qualifiers: Chronicity: acute Qualified Code(s): J81.0 - Acute pulmonary edema (3) Atrial fibrillation with RVR Current Visit: Yes Status: Inactive Assessment and plan: Likely exacerbated by CHF and possible pneumonia Continue metoprolol, digoxin, diltiazem Continue Coumadin (4) Respiratory distress Current Visit: Yes Status: Acute (5) Leukocytosis Current Visit: Yes Status: Acute Assessment and plan: Likely secondary to sepsis Qualifiers: Leukocytosis type: unspecified Qualified Code(s): D72.829 - Elevated white blood cell count, unspecified (6) Tobacco abuse Current Visit: Yes Status: Acute Assessment and plan: Smoking cessation counseling (7) History of stroke Current Visit: Yes Status: Acute Assessment and plan: Continue aspirin and Coumadin (8) Hypothyroid Current Visit: Yes Status: Chronic Qualifiers: Hypothyroidism type: unspecified Qualified Code(s): E03.9 - Hypothyroidism , unspecified (9) CVA, old, cognitive deficits Current Visit: Yes Status: Chronic (10) Type 2 diabetes mellitus Current Visit: Yes Status: Chronic Assessment and plan: Steroid-induced hyperglycemia, start Levemir 10 units at night and 4 units of lispro 3 times a day plus sliding scale Qualifiers: Diabetes mellitus complication status: with unspecified complications Diabetes mellitus jail insulin use: without jail use Qualified Code( s): E11.8 - Type 2 diabetes mellitus with unspecified complications - Time Spent With Patient Greater than 35 minutes - Subjective Interval history: The patient feels less short of breath but his requirements of oxygen are still very high 11 L, denies bringing up any phlegm. Denies any chest pain but complains of palpitations, was less tachycardic. No abdominal pain, no dysuria , no fevers - Constitutional Vitals: Temp Pulse Resp BP Pulse Ox 97.8 F 86 18 103/62 90 L 09/24/16 10:47 09/24/16 10:47 09/24/16 10:47 09/24/16 10:47 09/24/16 10:47 General appearance: Present: cooperative, A&O X 3, no acute distress - Head Head exam: Present: atraumatic, normocephalic - Eye Eye exam: Present: PERRL, conjuntiva pink, sclera anicteric Pupils: Present: PERRL - Neck Neck exam general surgery: Present: supple, trachea midline. Absent: lymphadenopathy - Respiratory Respiratory exam: Present: CTAB, rales (Diffuse crackles and wheezing). Absent : accessory muscle use, rhonchi, wheezes - Cardiovascular Cardiovascular exam: Present: RRR, +S1, +S2. Absent: diastolic murmur, gallop, rubs, systolic murmur - GI/Abdominal GI/Abdominal exam: Present: normal bowel sounds, soft, no peritoneal signs. Absent: distended, tenderness - Extremities Exam Extremities exam: Present: warm, radial pulses palpable and symetrical. Absent : calf tenderness, cyanotic, pedal edema - Neurological Exam Neurological exam: Present: CN II-XII intact, oriented X3, no focal deficits. Absent: pronater drift, facial droop, speech deficit - Skin Skin exam: Present: dry, intact Internal Medicine: Result - Labs CBC & Chem 7: 09/24/16 07:02 09/24/16 07:02 Labs: Short CBC 09/24/16 Range/Units 07:02 WBC 17.9 H (4.3-11.1) K/mcL Hgb 9.4 L (12.9-16.9) g/dL Hct 30.9 L (37.5-50.1) % Plt Count 373 (140-400) K/mcL BMP 09/24/16 07:02 Sodium 138 Potassium 4.7 H Chloride 103 Carbon Dioxide 22 BUN 41 H D Creatinine 1.07 Glucose 328 H Calcium 8.5 L - ABG Interpretation ABG results: ABG ABG pH 7.46 pH Units (7.32-7.45) H 09/22/16 04:10 ABG pCO2 34 mmHg (35-45) L 09/22/16 04:10 ABG pO2 55 mmHg (85-104) L 09/22/16 04:10 ABG O2 Saturation 90 % (95-98) L 09/22/16 04:10 PT/INR, D-dimer PT 35.1 Seconds (9.4-12.1) H 09/24/16 07:02 Consult Discharge Plan - Plan Referrals: Pal Power MD [Primary Care Provider] - 09/29/16 2:00 pm
[2016-09-24] MEDS: Insulin DETEMIR 100 UNIT/ML X5UNITS SQ SCH ×2 (13:34→23:04)
[2016-09-24] MEDS ORDERED: 0.9 % Sodium Chloride 250 ML IVC ONE (23:26)
[2016-09-25 00:44] LABS: Hemoglobin 9.9 g/dL (12.9-16.9); Mean Corpuscular HGB Conc 31.9 g/dL (31.6-35.5); Mean Corpuscular Hemoglobin 27.4 pg (28.0-33.3); Mean Corpuscular Volume 85.9 fL (83.0-100.0); Mean Platelet Volume 10.8 fL (9.4-12.4); Platelet Count 369 K/mcL (140-400); Red Blood Count 3.61 M/mcL (4.19-5.50); Red Cell Distribution Width 14.6 % (11.5-14.5)
[2016-09-25 00:49] LABS: INR 3.5; Prothrombin Time 38.7 Seconds (9.4-12.1)
[2016-09-25 00:59] LABS: BUN/Creatinine Ratio 46 (6-26); Blood Urea Nitrogen 51 mg/dL (8-26); Calcium 8.4 mg/dL (8.6-10.8); Carbon Dioxide 23 mEq/L (19-29); Chloride 100 mEq/L (98-109); Glucose 250 mg/dL (70-99); Osmolality,Calculated 308 (280-300); Potassium 3.9 mEq/L (3.5-4.5); Sodium 138 mEq/L (136-145); eGFR For African Americans > 60 (> 60); eGFR For Non-African Americans > 60 (> 60)
[2016-09-25] MEDS ORDERED: Magnesium Sulfate 2 GM in D5% in Water 100 ML IVPB ONE (02:27)
[2016-09-25] MEDS: Ipratropium/Albuterol Neb 3 ML IH SCH ×4 (04:45→22:02)
[2016-09-25] MEDS: MethylPREDNISolone 40 MG/ML VIAL IVP SCH ×3 (06:38→20:42)
[2016-09-25] MEDS: Cefepime HCl 1,000 MG in D5% in Water (Mini-Bag+) 100 ML IVPB SCH ×2 (06:38→18:03)
[2016-09-25] MEDS: Levothyroxine 25 MCG TABLET PO SCH (06:43)
[2016-09-25] MEDS: Aspirin Enteric Coated 325 MG Tablet PO SCH (09:37)
[2016-09-25] MEDS: hydroCHLOROthiazide 25 MG TABLET PO SCH (09:38)
[2016-09-25] MEDS: *HR* Digoxin 0.25 MG TABLET PO SCH (09:39)
[2016-09-25] MEDS: Insulin LISPRO 300 UNITS/3 ML VIAL SQ SCH ×7 (09:39→20:43)
[2016-09-25] MEDS: Levofloxacin 750 MG/150 ML 750 MG/150 ML BAG IVPB SCH (09:39)
[2016-09-25] MEDS: Diltiazem CD (24hr) 240 MG CAPSULE PO SCH (09:43)
[2016-09-25] MEDS: Lisinopril 20 MG TABLET PO SCH (09:43)
[2016-09-25] MEDS ORDERED: Insulin DETEMIR 100 UNIT/ML X5UNITS SQ SCH (10:41)
--- NOTE | 2016-09-25 10:45 | Internal Med Progress Note ---
Date of Encounter: 09/25/16 Time of Encounter: 10:42 - Assessment and plan (1) Sepsis Current Visit: Yes Status: Acute Assessment and plan: Hypoxic respiratory failure secondary to acute pulmonary edema from possible acute diastolic CHF exacerbation with acute on chronic atrial fibrillation with rapid ventricular response in combination with acute COPD exacerbation secondary to sepsis due to community-acquired pneumonia Will have a long hospitalization , situation explained to family and the patient Hold Lasix iv due to low blood pressure in the 80s and 90s, strict I's and O's CT scan of the chest shows acute pulmonary edema with diffuse infiltrates/ possible pneumonia Continue Levaquin and cefepime day 4, continue Solu-Medrol (decreased dose down to 40 mg twice a day) and oxygen therapy High flow nasal cannula on 11 L High risk due to respiratory failure Tested negative for Legionella and Streptococcus, viral panel was negative Discontinued IV fluids, echocardiogram showed an ejection fraction of 60-65% with indeterminate diastolic function Family was informed about his possible prolonged hospitalization Qualifiers: Sepsis type: sepsis due to unspecified organism Qualified Code(s): A41.9 - Sepsis, unspecified organism (2) Pulmonary edema Current Visit: Yes Status: Acute Qualifiers: Chronicity: acute Qualified Code(s): J81.0 - Acute pulmonary edema (3) Atrial fibrillation with RVR Current Visit: Yes Status: Inactive Assessment and plan: Likely exacerbated by CHF and possible pneumonia Continue metoprolol, digoxin, diltiazem Continue Coumadin (4) Respiratory distress Current Visit: Yes Status: Acute (5) Leukocytosis Current Visit: Yes Status: Acute Assessment and plan: Likely secondary to sepsis Qualifiers: Leukocytosis type: unspecified Qualified Code(s): D72.829 - Elevated white blood cell count, unspecified (6) Tobacco abuse Current Visit: Yes Status: Acute Assessment and plan: Smoking cessation counseling (7) History of stroke Current Visit: Yes Status: Acute Assessment and plan: Continue aspirin and Coumadin (8) Hypothyroid Current Visit: Yes Status: Chronic Qualifiers: Hypothyroidism type: unspecified Qualified Code(s): E03.9 - Hypothyroidism , unspecified (9) CVA, old, cognitive deficits Current Visit: Yes Status: Chronic Assessment and plan: Hold lisinopril due to hypotension (10) Type 2 diabetes mellitus Current Visit: Yes Status: Chronic Assessment and plan: Steroid-induced hyperglycemia, increase Levemir to 15 units at night and lispro to 5 units 3 times a day plus sliding scale Qualifiers: Diabetes mellitus complication status: with unspecified complications Diabetes mellitus fdc insulin use: without fdc use Qualified Code( s): E11.8 - Type 2 diabetes mellitus with unspecified complications - Subjective Interval history: Blood pressure dropped to the 90s but the patient is asymptomatic. The patient feels less short of breath but his requirements of oxygen are still very high 11 L, denies bringing up any phlegm. Denies any chest pain but complains of palpitations, was less tachycardic. No abdominal pain, no dysuria , no fevers - Constitutional Vitals: Temp Pulse Resp BP Pulse Ox 98.3 F 90 18 81/53 89 L 09/25/16 06:50 09/25/16 06:50 09/25/16 06:50 09/25/16 06:50 09/25/16 06:50 General appearance: Present: cooperative, A&O X 3, no acute distress - Head Head exam: Present: atraumatic, normocephalic - Eye Eye exam: Present: PERRL, conjuntiva pink, sclera anicteric Pupils: Present: PERRL - Neck Neck exam general surgery: Present: supple, trachea midline. Absent: lymphadenopathy - Respiratory Respiratory exam: Present: CTAB, wheezes (Wheezing and diffuse crackles have improved). Absent: accessory muscle use, rales, rhonchi - Cardiovascular Cardiovascular exam: Present: RRR, +S1, +S2. Absent: diastolic murmur, gallop, rubs, systolic murmur - GI/Abdominal GI/Abdominal exam: Present: normal bowel sounds, soft, no peritoneal signs. Absent: distended, tenderness - Extremities Exam Extremities exam: Present: warm, radial pulses palpable and symetrical. Absent : calf tenderness, cyanotic, pedal edema - Neurological Exam Neurological exam: Present: CN II-XII intact, oriented X3, no focal deficits. Absent: pronater drift, facial droop, speech deficit - Skin Skin exam: Present: dry, intact Internal Medicine: Result - Labs CBC & Chem 7: 09/25/16 00:27 09/25/16 00:27 Labs: Short CBC 09/25/16 Range/Units 00:27 WBC 13.5 H (4.3-11.1) K/mcL Hgb 9.9 L (12.9-16.9) g/dL Hct 31.0 L (37.5-50.1) % Plt Count 369 (140-400) K/mcL BMP 09/25/16 00:27 Sodium 138 Potassium 3.9 Chloride 100 Carbon Dioxide 23 BUN 51 H Creatinine 1.10 Glucose 250 H Calcium 8.4 L - ABG Interpretation ABG results: ABG ABG pH 7.46 pH Units (7.32-7.45) H 09/22/16 04:10 ABG pCO2 34 mmHg (35-45) L 09/22/16 04:10 ABG pO2 55 mmHg (85-104) L 09/22/16 04:10 ABG O2 Saturation 90 % (95-98) L 09/22/16 04:10 PT/INR, D-dimer PT 38.7 Seconds (9.4-12.1) H 09/25/16 00:27 Consult Discharge Plan - Plan Referrals: Pal Power MD [Primary Care Provider] - 09/29/16 2:00 pm
[2016-09-25] MEDS: *HR* LORazepam 0.5 MG TABLET PO PRN (14:59)
[2016-09-26] MEDS: Ipratropium/Albuterol Neb 3 ML IH SCH ×4 (04:02→20:37)
[2016-09-26] MEDS: Levothyroxine 25 MCG TABLET PO SCH (05:50)
[2016-09-26] MEDS: Cefepime HCl 1,000 MG in D5% in Water (Mini-Bag+) 100 ML IVPB SCH ×2 (05:50→20:20)
[2016-09-26 05:59] LABS: Hematocrit 32.2 % (37.5-50.1); Hemoglobin 9.8 g/dL (12.9-16.9); Mean Corpuscular HGB Conc 30.4 g/dL (31.6-35.5); Mean Corpuscular Hemoglobin 26.3 pg (28.0-33.3); Mean Corpuscular Volume 86.6 fL (83.0-100.0); Mean Platelet Volume 10.7 fL (9.4-12.4); Platelet Count 363 K/mcL (140-400); Red Blood Count 3.72 M/mcL (4.19-5.50); Red Cell Distribution Width 14.4 % (11.5-14.5)
[2016-09-26 06:10] LABS: INR 2.5; Prothrombin Time 27.5 Seconds (9.4-12.1)
[2016-09-26 06:25] LABS: BUN/Creatinine Ratio 53 (6-26); Blood Urea Nitrogen 54 mg/dL (8-26); Calcium 8.3 mg/dL (8.6-10.8); Carbon Dioxide 23 mEq/L (19-29); Chloride 101 mEq/L (98-109); Glucose 303 mg/dL (70-99); Osmolality,Calculated 312 (280-300); Potassium 4.3 mEq/L (3.5-4.5); Sodium 138 mEq/L (136-145); eGFR For African Americans > 60 (> 60); eGFR For Non-African Americans > 60 (> 60)
[2016-09-26] MEDS: Levofloxacin 750 MG/150 ML 750 MG/150 ML BAG IVPB SCH (09:20)
[2016-09-26] MEDS: hydroCHLOROthiazide 25 MG TABLET PO SCH (09:22)
[2016-09-26] MEDS: *HR* Digoxin 0.25 MG TABLET PO SCH (09:22)
[2016-09-26] MEDS: Diltiazem CD (24hr) 240 MG CAPSULE PO SCH (09:22)
[2016-09-26] MEDS: Aspirin Enteric Coated 325 MG Tablet PO SCH (09:22)
[2016-09-26] MEDS: MethylPREDNISolone 40 MG/ML VIAL IVP SCH ×2 (09:23→20:20)
[2016-09-26] MEDS: Insulin LISPRO 300 UNITS/3 ML VIAL SQ SCH ×7 (09:24→20:28)
[2016-09-26 10:52] LABS: ABG Base Excess 1.2 mEq/L (-2.0 to 3.0); ABG Oxygen Saturation 94 % (95-98); ABG PCO2 41 mmHg (35-45); ABG PH 7.41 pH Units (7.32-7.45); ABG PO2 68 mmHg (85-104); ABG TCO2 27.3 mEq/L (20-26)
[2016-09-26] MEDS: Furosemide 40 MG/4 ML VIAL IVP SCH (17:21)
[2016-09-26] MEDS ORDERED: *HR* Warfarin 3 MG TABLET PO ONE (18:00)
--- NOTE | 2016-09-26 18:33 | Internal Med Progress Note ---
Date of Encounter: 09/26/16 Time of Encounter: 11:00 - Assessment and plan (1) Acute and chronic respiratory failure with hypoxia Current Visit: Yes Status: Acute Assessment and plan: High flow nasal oxygen. Titrate to maintain saturation above 92%. (2) Pneumonia Current Visit: No Status: Suspected Assessment and plan: Continue with cefepime and Levaquin. Qualifiers: Pneumonia type: due to unspecified organism Laterality: bilateral Lung location: unspecified part of lung Qualified Code(s): J18.9 - Pneumonia, unspecified organism (3) HLD (hyperlipidemia) Current Visit: Yes Status: Chronic Assessment and plan: We will continue with statin. Qualifiers: Hyperlipidemia type: unspecified Qualified Code(s): E78.5 - Hyperlipidemia , unspecified (4) Nicotine dependence with nicotine-induced disorder Current Visit: Yes Status: Chronic Assessment and plan: I have provided smoking cessation counseling. Qualifiers: Nicotine product type: cigarettes Qualified Code(s): F17.219 - Nicotine dependence, cigarettes, with unspecified nicotine-induced disorders (5) Type 2 diabetes mellitus Current Visit: Yes Status: Chronic Assessment and plan: Insulin Levemir and sliding scale. Qualifiers: Diabetes mellitus complication status: with unspecified complications Diabetes mellitus intermediate project manager insulin use: without intermediate project manager use Qualified Code( s): E11.8 - Type 2 diabetes mellitus with unspecified complications (6) Chronic atrial fibrillation Current Visit: Yes Status: Chronic (7) Pulmonary edema Current Visit: Yes Status: Acute Assessment and plan: Likely infectious with possible component of heart failure. We will continue treatment with IV Lasix and antibiotics. I have obtained a repeat chest x-ray which showed slightly improved pulmonary edema. We will monitor closely. He remains a very high risk for morbidity mortality and complications due to advanced age and respiratory failure and pneumonia. Qualifiers: Chronicity: acute Qualified Code(s): J81.0 - Acute pulmonary edema - Subjective Interval history: Patient reports moderate circumflex shortness of breath at rest associated with wheezing, no chest pain, he reports cough productive of some very small amount of sputum. Shortness of breath has significantly improved over the last 24 hours. He reports improvement with breathing treatments and oxygen. He required high flow oxygen as much as 15 L/m but he now is tolerating 6 L/m with oxygen saturation above 94% rest - Constitutional Vitals: Temp Pulse Resp BP Pulse Ox 97.6 F 77 18 105/59 96 09/26/16 14:49 09/26/16 14:49 09/26/16 14:49 09/26/16 14:49 09/26/16 14:49 General appearance: Present: cooperative, A&O X 3, no acute distress - Eye Eye exam: Present: PERRL, conjuntiva pink, sclera anicteric Pupils: Present: PERRL - Respiratory Respiratory exam: Present: CTAB, rales, rhonchi. Absent: accessory muscle use, respiratory distress - Cardiovascular Cardiovascular exam: Present: irregular rhythm, +S1, +S2, tachycardia. Absent: diastolic murmur, gallop, rubs, systolic murmur - Extremities Exam Extremities exam: Present: warm, radial pulses palpable and symetrical. Absent : calf tenderness, cyanotic, pedal edema - Neurological Exam Neurological exam: Present: CN II-XII intact, oriented X3, no focal deficits. Absent: pronater drift, facial droop, speech deficit - Skin Skin exam: Present: dry, intact Internal Medicine: Result - Labs CBC & Chem 7: 09/26/16 04:28 09/26/16 04:28 Labs: Short CBC 09/26/16 Range/Units 04:28 WBC 13.7 H (4.3-11.1) K/mcL Hgb 9.8 L (12.9-16.9) g/dL Hct 32.2 L (37.5-50.1) % Plt Count 363 (140-400) K/mcL BMP 09/26/16 04:28 Sodium 138 Potassium 4.3 Chloride 101 Carbon Dioxide 23 BUN 54 H Creatinine 1.01 Glucose 303 H Calcium 8.3 L - ABG Interpretation ABG results: ABG ABG pH 7.41 pH Units (7.32-7.45) 09/26/16 10:13 ABG pCO2 41 mmHg (35-45) 09/26/16 10:13 ABG pO2 68 mmHg (85-104) L 09/26/16 10:13 ABG O2 Saturation 94 % (95-98) L 09/26/16 10:13 PT/INR, D-dimer PT 27.5 Seconds (9.4-12.1) H 09/26/16 04:28 - Impressions Impressions Chest X-Ray 09/26/16 12:30 IMPRESSION: Mild improvement in the patchy opacities throughout the lungs bilaterally. D/ / Evan Vazquez MD / Evan Vazquez MD Interpreting Provider: Evan Vazquez MD Consult Discharge Plan - Plan Referrals: Pal Power MD [Primary Care Provider] - 09/29/16 2:00 pm
[2016-09-26] MEDS: Insulin DETEMIR 100 UNIT/ML X5UNITS SQ SCH (20:20)
[2016-09-27] MEDS: Ipratropium/Albuterol Neb 3 ML IH SCH ×4 (03:43→21:08)
[2016-09-27 04:38] LABS: Basophils % 0.2 %; Hematocrit 32.6 % (37.5-50.1); Hemoglobin 10.2 g/dL (12.9-16.9); Immature Granulocytes % 1.8 % (0-4); Lymphocytes # 0.7 K/mcL (0.6-4.6); Lymphocytes % 5.4 %; Mean Corpuscular HGB Conc 31.3 g/dL (31.6-35.5); Mean Corpuscular Hemoglobin 26.8 pg (28.0-33.3); Mean Corpuscular Volume 85.8 fL (83.0-100.0); Monocytes # 0.6 K/mcL (0.0-1.3); Monocytes % 4.5 %; Platelet Count 354 K/mcL (140-400); Red Cell Distribution Width 14.4 % (11.5-14.5); Segmented Neutrophils % 88.1 %
[2016-09-27 04:42] LABS: INR 2.2; Prothrombin Time 24.3 Seconds (9.4-12.1)
[2016-09-27] MEDS: Levothyroxine 25 MCG TABLET PO SCH (05:57)
[2016-09-27] MEDS: Cefepime HCl 1,000 MG in D5% in Water (Mini-Bag+) 100 ML IVPB SCH ×2 (05:58→18:58)
[2016-09-27] MEDS: MethylPREDNISolone 40 MG/ML VIAL IVP SCH (09:01)
[2016-09-27] MEDS: Furosemide 40 MG/4 ML VIAL IVP SCH (09:01)
[2016-09-27] MEDS: Levofloxacin 750 MG/150 ML 750 MG/150 ML BAG IVPB SCH (09:02)
[2016-09-27] MEDS: Diltiazem CD (24hr) 240 MG CAPSULE PO SCH (09:02)
[2016-09-27] MEDS: Aspirin Enteric Coated 325 MG Tablet PO SCH (09:02)
[2016-09-27] MEDS: Insulin LISPRO 300 UNITS/3 ML VIAL SQ SCH ×7 (09:07→20:37)
[2016-09-27] MEDS ORDERED: *HR* Warfarin 2.5 MG TABLET PO ONE (18:00)
[2016-09-27] MEDS: *HR* Digoxin 0.25 MG TABLET PO SCH (18:53)
[2016-09-27] MEDS: Insulin DETEMIR 100 UNIT/ML X5UNITS SQ SCH ×2 (19:03→20:36)
--- NOTE | 2016-09-27 20:48 | Internal Med Progress Note ---
Date of Encounter: 09/27/16 Time of Encounter: 11:00 - Assessment and plan (1) Acute and chronic respiratory failure with hypoxia Current Visit: Yes Status: Acute Assessment and plan: Switch to Oxymizer mask for nasal oxygen delivery. Titrate to maintain saturation above 92%. (2) Pneumonia Current Visit: No Status: Suspected Assessment and plan: Continue with cefepime and Levaquin. Follow-up blood culture and sensitivities. Monitor WBC trend. Qualifiers: Pneumonia type: due to unspecified organism Laterality: bilateral Lung location: unspecified part of lung Qualified Code(s): J18.9 - Pneumonia, unspecified organism (3) HLD (hyperlipidemia) Current Visit: Yes Status: Chronic Assessment and plan: We will continue with statin. Qualifiers: Hyperlipidemia type: unspecified Qualified Code(s): E78.5 - Hyperlipidemia , unspecified (4) Nicotine dependence with nicotine-induced disorder Current Visit: Yes Status: Chronic Assessment and plan: I have provided smoking cessation counseling. Qualifiers: Nicotine product type: cigarettes Qualified Code(s): F17.219 - Nicotine dependence, cigarettes, with unspecified nicotine-induced disorders (5) Type 2 diabetes mellitus Current Visit: Yes Status: Chronic Assessment and plan: Insulin Levemir and sliding scale. Qualifiers: Diabetes mellitus complication status: with unspecified complications Diabetes mellitus prison insulin use: without prison use Qualified Code( s): E11.8 - Type 2 diabetes mellitus with unspecified complications (6) Chronic atrial fibrillation Current Visit: Yes Status: Chronic (7) Pulmonary edema Current Visit: Yes Status: Acute Assessment and plan: Continue with IV diuretic. Strict I's and O's and daily weights. Likely infectious with possible component of heart failure. We will continue treatment with IV Lasix and antibiotics. I have obtained a repeat chest x-ray which showed slightly improved pulmonary edema. We will monitor closely. He remains a very high risk for morbidity mortality and complications due to advanced age and respiratory failure and pneumonia. Qualifiers: Chronicity: acute Qualified Code(s): J81.0 - Acute pulmonary edema - Subjective Interval history: 09/27/2016: His shortness of breath at rest has improved somewhat from yesterday , he still gets out of breath with minimal exertion, and reports associated cough. 09/26/2016: Patient reports shortness of breath at rest associated with wheezing , no chest pain, he reports cough productive of some very small amount of sputum. Shortness of breath has significantly improved over the last 24 hours. He reports improvement with breathing treatments and oxygen. He required high flow oxygen as much as 15 L/m but he now is tolerating 6 L/m with oxygen saturation above 94% rest - Constitutional Vitals: Temp Pulse Resp BP Pulse Ox 97.8 F 109 22 126/98 98 09/27/16 20:00 09/27/16 20:00 09/27/16 20:00 09/27/16 20:00 09/27/16 20:00 General appearance: Present: cooperative, A&O X 3, no acute distress - Respiratory Respiratory exam: Present: rales, rhonchi. Absent: accessory muscle use - Cardiovascular Cardiovascular exam: Present: RRR, +S1, +S2. Absent: diastolic murmur, gallop, rubs, systolic murmur - GI/Abdominal GI/Abdominal exam: Present: normal bowel sounds, soft, no peritoneal signs. Absent: distended, tenderness - Extremities Exam Extremities exam: Present: warm, radial pulses palpable and symetrical. Absent : calf tenderness, cyanotic, pedal edema - Neurological Exam Neurological exam: Present: CN II-XII intact, oriented X3, no focal deficits. Absent: pronater drift, facial droop, speech deficit - Skin Skin exam: Present: dry, intact Internal Medicine: Result - Labs CBC & Chem 7: 09/27/16 03:07 09/26/16 04:28 Labs: Short CBC 09/27/16 Range/Units 03:07 WBC 12.5 H (4.3-11.1) K/mcL Hgb 10.2 L (12.9-16.9) g/dL Hct 32.6 L (37.5-50.1) % Plt Count 354 (140-400) K/mcL Neutrophils # 11.0 H (1.6-8.9) K/mcL - ABG Interpretation ABG results: ABG ABG pH 7.41 pH Units (7.32-7.45) 09/26/16 10:13 ABG pCO2 41 mmHg (35-45) 09/26/16 10:13 ABG pO2 68 mmHg (85-104) L 09/26/16 10:13 ABG O2 Saturation 94 % (95-98) L 09/26/16 10:13 PT/INR, D-dimer PT 24.3 Seconds (9.4-12.1) H 09/27/16 03:07 Consult Discharge Plan - Plan Referrals: Pal Power MD [Primary Care Provider] - 09/29/16 2:00 pm
[2016-09-28] MEDS: Ipratropium/Albuterol Neb 3 ML IH SCH ×4 (03:40→22:47)
[2016-09-28] MEDS: Cefepime HCl 1,000 MG in D5% in Water (Mini-Bag+) 100 ML IVPB SCH (04:33)
[2016-09-28] MEDS: Levothyroxine 25 MCG TABLET PO SCH (04:33)
[2016-09-28 07:11] LABS: Prothrombin Time 21.7 Seconds (9.4-12.1)
[2016-09-28 07:29] LABS: BUN/Creatinine Ratio 55 (6-26); Blood Urea Nitrogen 46 mg/dL (8-26); Calcium 8.5 mg/dL (8.6-10.8); Carbon Dioxide 30 mEq/L (19-29); Chloride 99 mEq/L (98-109); Glucose 132 mg/dL (70-99); Osmolality,Calculated 304 (280-300); Potassium 3.9 mEq/L (3.5-4.5); Sodium 140 mEq/L (136-145); eGFR For African Americans > 60 (> 60); eGFR For Non-African Americans > 60 (> 60)
[2016-09-28 07:33] LABS: Basophils # 0.1 K/mcL (0.0-0.2); Basophils % 0.3 %; Eosinophils % 0.2 %; Hematocrit 36.6 % (37.5-50.1); Hemoglobin 11.5 g/dL (12.9-16.9); Immature Granulocytes % 2.3 % (0-4); Lymphocytes # 1.4 K/mcL (0.6-4.6); Lymphocytes % 8.2 %; Mean Corpuscular HGB Conc 31.4 g/dL (31.6-35.5); Mean Corpuscular Hemoglobin 26.8 pg (28.0-33.3); Mean Corpuscular Volume 85.3 fL (83.0-100.0); Mean Platelet Volume 10.8 fL (9.4-12.4); Monocytes # 1.2 K/mcL (0.0-1.3); Monocytes % 7.1 %; Neutrophils # 13.9 K/mcL (1.6-8.9); Nucleated Red Blood Cells 0.1 /100 WBC (0); Platelet Count 357 K/mcL (140-400); Red Blood Count 4.29 M/mcL (4.19-5.50); Red Cell Distribution Width 14.5 % (11.5-14.5); Segmented Neutrophils % 81.9 %
[2016-09-28] MEDS: Insulin LISPRO 300 UNITS/3 ML VIAL SQ SCH ×7 (07:45→20:54)
[2016-09-28] MEDS: predniSONE 20 MG TABLET PO SCH (12:27)
[2016-09-28] MEDS: Aspirin Enteric Coated 325 MG Tablet PO SCH (12:27)
[2016-09-28] MEDS: Levofloxacin 750 MG/150 ML 750 MG/150 ML BAG IVPB SCH (12:27)
[2016-09-28] MEDS: Diltiazem CD (24hr) 240 MG CAPSULE PO SCH (12:27)
[2016-09-28] MEDS: *HR* Digoxin 0.25 MG TABLET PO SCH (12:27)
[2016-09-28] MEDS: Furosemide 40 MG/4 ML VIAL IVP SCH (12:28)
[2016-09-28] MEDS ORDERED: *HR* Warfarin 4 MG TABLET PO ONE (18:00)
[2016-09-28] MEDS: Insulin DETEMIR 100 UNIT/ML X5UNITS SQ SCH ×2 (20:06)
--- NOTE | 2016-09-28 20:38 | Internal Med Progress Note ---
Date of Encounter: 09/28/16 Time of Encounter: 20:34 - Assessment and plan (1) Acute and chronic respiratory failure with hypoxia Current Visit: Yes Status: Acute Assessment and plan: On Oxymizer mask for nasal oxygen delivery. Titrate to maintain saturation above 92%. Currently 5 L/m. (2) Pneumonia Current Visit: No Status: Suspected Assessment and plan: Continue with cefepime and Levaquin for a total of 10 days. I will increase the cefepime dose to 2 g according to pneumonia dosing. Follow-up blood culture and sensitivities. Monitor WBC trend. Qualifiers: Pneumonia type: due to unspecified organism Laterality: bilateral Lung location: unspecified part of lung Qualified Code(s): J18.9 - Pneumonia, unspecified organism (3) HLD (hyperlipidemia) Current Visit: Yes Status: Chronic Assessment and plan: We will continue with statin. Qualifiers: Hyperlipidemia type: unspecified Qualified Code(s): E78.5 - Hyperlipidemia , unspecified (4) Nicotine dependence with nicotine-induced disorder Current Visit: Yes Status: Chronic Assessment and plan: I have provided smoking cessation counseling. Qualifiers: Nicotine product type: cigarettes Qualified Code(s): F17.219 - Nicotine dependence, cigarettes, with unspecified nicotine-induced disorders (5) Type 2 diabetes mellitus Current Visit: Yes Status: Chronic Assessment and plan: Insulin Levemir and sliding scale. 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 Continue with IV diuretic. Strict I's and O's and daily weights. Likely infectious with possible component of heart failure. We will continue treatment with IV Lasix and antibiotics. I have obtained a repeat chest x-ray which showed slightly improved pulmonary edema. We will monitor closely. He remains a very high risk for morbidity mortality and complications due to advanced age and respiratory failure and pneumonia. Qualifiers: Chronicity: acute Qualified Code(s): J81.0 - Acute pulmonary edema - Subjective Interval history: 09/28/16 he says shortness of breath on and off, generally better than yesterday , with no chest pain, with cough 09/27/2016: His shortness of breath at rest has improved somewhat from yesterday , he still gets out of breath with minimal exertion, and reports associated cough. 09/26/2016: Patient reports shortness of breath at rest associated with wheezing , no chest pain, he reports cough productive of some very small amount of sputum. Shortness of breath has significantly improved over the last 24 hours. He reports improvement with breathing treatments and oxygen. He required high flow oxygen as much as 15 L/m but he now is tolerating 6 L/m with oxygen saturation above 94% rest - Constitutional Vitals: Temp Pulse Resp BP Pulse Ox 97.6 F 109 16 115/69 96 09/28/16 16:17 09/28/16 16:17 09/28/16 16:17 09/28/16 16:17 09/28/16 16:17 General appearance: Present: cooperative, A&O X 3, no acute distress - Respiratory Respiratory exam: Present: rales, rhonchi. Absent: accessory muscle use - Cardiovascular Cardiovascular exam: Present: RRR, +S1, +S2. Absent: diastolic murmur, gallop, rubs, systolic murmur - GI/Abdominal GI/Abdominal exam: Present: normal bowel sounds, soft, no peritoneal signs. Absent: distended, tenderness - Extremities Exam Extremities exam: Present: warm, radial pulses palpable and symetrical. Absent : calf tenderness, cyanotic, pedal edema - Skin Skin exam: Present: dry, intact Internal Medicine: Result - Labs CBC & Chem 7: 09/28/16 06:02 09/28/16 06:02 Labs: Short CBC 09/28/16 Range/Units 06:02 WBC 17.0 H (4.3-11.1) K/mcL Hgb 11.5 L (12.9-16.9) g/dL Hct 36.6 L (37.5-50.1) % Plt Count 357 (140-400) K/mcL Neutrophils # 13.9 H (1.6-8.9) K/mcL BMP 09/28/16 06:02 Sodium 140 Potassium 3.9 Chloride 99 Carbon Dioxide 30 H BUN 46 H Creatinine 0.83 Glucose 132 H Calcium 8.5 L - ABG Interpretation ABG results: ABG ABG pH 7.41 pH Units (7.32-7.45) 09/26/16 10:13 ABG pCO2 41 mmHg (35-45) 09/26/16 10:13 ABG pO2 68 mmHg (85-104) L 09/26/16 10:13 ABG O2 Saturation 94 % (95-98) L 09/26/16 10:13 PT/INR, D-dimer PT 21.7 Seconds (9.4-12.1) H 09/28/16 06:02 Consult Discharge Plan - Plan Referrals: Pal Power MD [Primary Care Provider] - 09/29/16 2:00 pm
[2016-09-28] MEDS: Cefepime HCl 2,000 MG in D5% in Water (Mini-Bag+) 100 ML IVPB SCH (21:00)
[2016-09-29] MEDS: Ipratropium/Albuterol Neb 3 ML IH SCH ×3 (04:26→15:57)
[2016-09-29] MEDS: Levothyroxine 25 MCG TABLET PO SCH (05:35)
[2016-09-29 05:50] LABS: INR 2.1; Prothrombin Time 23.6 Seconds (9.4-12.1)
[2016-09-29] MEDS: Insulin LISPRO 300 UNITS/3 ML VIAL SQ SCH ×4 (08:45→11:58)
[2016-09-29] MEDS: *HR* Digoxin 0.25 MG TABLET PO SCH (08:46)
[2016-09-29] MEDS: predniSONE 20 MG TABLET PO SCH (08:49)
[2016-09-29] MEDS: Furosemide 40 MG/4 ML VIAL IVP SCH (08:49)
[2016-09-29] MEDS: Diltiazem CD (24hr) 240 MG CAPSULE PO SCH (08:49)
[2016-09-29] MEDS: Cefepime HCl 2,000 MG in D5% in Water (Mini-Bag+) 100 ML IVPB SCH (08:50)
[2016-09-29] MEDS: Insulin DETEMIR 100 UNIT/ML X5UNITS SQ SCH (08:50)
[2016-09-29] MEDS: Aspirin Enteric Coated 325 MG Tablet PO SCH (08:50)
[2016-09-29] MEDS ORDERED: levoFLOXacin 750 MG TABLET PO SCH (09:00)
[2016-09-29] MEDS: *HR* LORazepam 0.5 MG TABLET PO PRN (15:06)
[2016-09-29 16:10] VITALS: BP 99/57
--- NOTE | 2016-09-29 16:17 | Discharge Summary ---
Date of Encounter: 09/29/16 Time of Encounter: 16:08 - Discharge Diagnosis (1) Acute and chronic respiratory failure with hypoxia Priority: Secondary Status: Acute (2) HLD (hyperlipidemia) Priority: Secondary Status: Chronic Qualifiers: Hyperlipidemia type: unspecified Qualified Code(s): E78.5 - Hyperlipidemia , unspecified (3) Nicotine dependence with nicotine-induced disorder Priority: Secondary Status: Chronic Qualifiers: Nicotine product type: cigarettes Qualified Code(s): F17.219 - Nicotine dependence, cigarettes, with unspecified nicotine-induced disorders (4) Type 2 diabetes mellitus Priority: Secondary Status: Chronic Qualifiers: Diabetes mellitus complication status: with unspecified complications 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 Qualified Code( s): E11.8 - Type 2 diabetes mellitus with unspecified complications (5) Chronic atrial fibrillation Priority: Secondary Status: Chronic (6) Pulmonary edema Priority: Secondary Status: Acute Qualifiers: Chronicity: acute Qualified Code(s): J81.0 - Acute pulmonary edema (7) Pneumonia Priority: Secondary Status: Acute Qualifiers: Pneumonia type: due to unspecified organism Laterality: bilateral Lung location: unspecified part of lung Qualified Code(s): J18.9 - Pneumonia, unspecified organism - Discharge Medications Prescriptions: OxyCODONE Immed Rel [Roxicodone 5 MG] 10 mg PO Q6HR PRN #20 tablet PRN Reason: Severe Pain OxyCODONE Immed Rel [Roxicodone 5 MG] 5 mg PO Q6HR PRN #20 tablet PRN Reason: Moderate Pain LORazepam [Ativan] 0.5 mg PO QID PRN #20 tablet PRN Reason: Anxiety Home Medications: Allopurinol [Zyloprim 100 MG] 100 mg PO DAILY 09/21/16 [History] Aspirin [Ecotrin] 325 mg PO DAILY 09/21/16 [History] Digoxin [Lanoxin] 0.25 mg PO DAILY 09/21/16 [History] Diltiazem CD (24hr) [Cardizem CD] 240 mg PO DAILY 09/21/16 [History] Docusate [Colace] 100 mg PO TID 09/21/16 [History] Gemfibrozil [Lopid] 600 mg PO BIDWM 09/21/16 [History] GlipiZIDE [Glipizide ER] 10 mg PO BID 09/21/16 [History] Hydrochlorothiazide 25 mg PO DAILY 09/21/16 [History] Levothyroxine [Synthroid] 25 mcg PO DAILY 09/21/16 [History] Lisinopril [Zestril] 20 mg PO DAILY 09/21/16 [History] Metformin HCl [Glucophage] 1,000 mg PO BID 09/21/16 [History] Polyethylene Glycol 3350 [MiraLAX Powder Bulk 17.9 Oz] 17 gm PO DAILY 09/21/16 [ History] Pravastatin Sodium [Pravachol] 40 mg PO HS 09/21/16 [History] Warfarin [Coumadin] 5 mg PO SUTUTHSA 09/21/16 [History] Metoprolol XL (24 HR) Succ [Toprol Xl] 25 mg PO QPM 09/22/16 [History] Warfarin [Coumadin] 2.5 mg PO MOWEFR 09/22/16 [History] Albuterol Neb [Proventil Neb] 2.5 mg IH [id number] PRN #0 inhsol 09/29/16 [Rx] Furosemide [Lasix] 40 mg IVP DAILY vial 09/29/16 [Rx] GuaiFENesin ER [Mucinex] 1,200 mg PO BID tbbp.12hr 09/29/16 [Rx] Insulin DETEMIR [Levemir] 15 unit SQ BID [id number] 09/29/16 [Rx] Ipratropium/Albuterol Neb [Duoneb] 3 ml IH [id number] inhsol 09/29/16 [Rx] LORazepam [Ativan] 0.5 mg PO QID PRN #20 tablet 09/29/16 [Rx] Levofloxacin 750 mg PO DAILY tablet 09/29/16 [Rx] Nicotine Patch [Nicoderm] 21 mg TD DAILY PRN #0 patch.td24 09/29/16 [Rx] OxyCODONE Immed Rel [Roxicodone 5 MG] 5 mg PO Q6HR PRN #20 tablet 09/29/16 [Rx] OxyCODONE Immed Rel [Roxicodone 5 MG] 10 mg PO Q6HR PRN #20 tablet 09/29/16 [Rx] Cefepime HCl [Maxipime] 2,000 mg IVPB Q12H vial 10/04/16 [Rx] Glucagon, Human Recombinant [Glucagen] 1 mg IM ONCE PRN #0 vial 10/04/16 [Rx] Insulin LISPRO [HumaLOG] 5 units SQ ACHS 10/04/16 [History] MethylPREDNISolone [Solu-MEDROL] 60 mg IVP Q8HR vial 10/04/16 [Rx] Allergies/Adverse Reactions: Allergies No Known Allergies Allergy (Verified 09/21/16 20:05) Date of admission: 09/22/16 03:02 Primary care physician: Pal Power MD Consults: 09/22/16 04:00 Consult to Respiratory Therapy [CONS] Routine Reason for Consult: SOB, txt Call Completed: No 09/22/16 05:52 Consult to Occupational Therapy [CONS] Routine Comment: Evaluate, develop and implement POC Consult to Physical Therapy [CONS] Routine Comment: Evaluate, develop and implement POC 09/22/16 10:47 Consult to Speech Therapy [CONS] Routine Comment: Evaluate, develop and implement POC Reason for Consult: family reports difficulty swallowing at times. Call Completed: No 09/26/16 14:49 PT [Consult to Physical Therapy] [CONS] Routine Comment: Evaluate, develop and implement POC 09/26/16 14:50 OT [Consult to Occupational Therapy] [CONS] Routine Comment: Evaluate, develop and implement POC - Patient Status Disposition: Transfer SNF Condition: Fair Functional capacity at discharge: bed bound Overall status at discharge: patient is not back to baseline - Discharge Instructions Follow Up With: Pal Power MD [Primary Care Provider] - 09/29/16 2:00 pm - Diet and Activity Activity: as per physical therapy Diet: diabetic diet, low salt diet Hospital course: Mr. Phillips is a 75 year old male with past medical histoyis significant for atrial fibrillation, diabetes and stroke who was transferred from [facility] for evaluation of shortness of breath and hypoxia. Initial workup suggested pulmonary edema and possible sepsis secondary to bilateral pneumonia causing acute hypoxic respiratory failure. Pulmonary embolism was ruled out by CT angiogram of the chest. The patient was admitted to the medical service. He received treatment with IV Lasix, IV Levaquin and inhaled bronchodilators. For atrial fibrillation he was maintained on diltiazem metoprolol and digoxin. He made a very slow clinical improvement and therefore cefepime was added to his medication regimen for treatment of healthcare associated pneumonia. We continued diuresis with IV Lasix. On day 4 of hospitalization his Lasix was placed on hold due to hypotension. His oxygen requirements increased to 11 L/m by high flow nasal cannula. On day 5 of hospitalization a repeat chest x-ray showed mild improvement in patchy bilateral opacities. Lasix was restarted and the patient tolerated this well. He was titrated off the high flow nasal cannula and received oxygen supplementation by OptiFlow nasal cannula with good results. He maintained an oxygen saturation of above 92% on 5 L/m. His over all condition had improved, has resting shortness of breath diminished however, he remained severely dyspneic with minimal exertion. His cefepime dosing was then increased to 2 g twice a day and we continued with dual antibiotic treatment as well as IV Lasix. He continued to improve and on day 7 his oxygen saturation was up to 100% on OptiFlow at 4 L/m. According to his weight record he had lost 5 kg as a result of diuresis during this 7 day hospital stay. The patient is currently improved and will be discharged to [facility] to continue antibiotic treatment with cefepime and Levaquin as well as diuretics. The patient is medically stable for discharge to a detention facility. - Time Spent with Patient Total time spent providing and/or coordinating discharge services: Greater than 30 minutes (I have spent 50 minutes coordinating this discharge.) - Constitutional Vitals: Temp Pulse Resp BP Pulse Ox 97.6 F 86 18 118/79 99 09/29/16 11:36 09/29/16 11:36 09/29/16 11:36 09/29/16 11:36 09/29/16 11:36 General appearance: Present: cooperative, A&O X 3, no acute distress - Respiratory Respiratory exam: Present: CTAB, rales. Absent: accessory muscle use, rhonchi, wheezes - Cardiovascular Cardiovascular exam: Present: irregular rhythm, +S1, +S2. Absent: diastolic murmur, gallop, rubs, systolic murmur
[2016-09-29] MEDS ORDERED: *HR* Warfarin 4 MG TABLET PO ONE (18:00)
== END 2016-09-29 21:02 | DRG 871 ==
LOC: 2NENU → SUATTDRO 09-22 03:02
PROVIDERS: ADMIT Pediatrics; ATTEND Internal Medicine

== ENCOUNTER 2016-10-04 09:15 | Inpatient (IN) ==
[2016-10-04] MEDS ORDERED: *HR* HYDROcodone/Acet 5/325 mg TABLET PO PRN (12:00)
[2016-10-04] MEDS ORDERED: Naloxone 0.4 MG/ML INJ IVP PRN (12:00)
[2016-10-04] MEDS ORDERED: Acetaminophen 325 MG TABLET PO PRN (12:00)
[2016-10-04] MEDS ORDERED: Ondansetron 4 MG/2 ML VIAL IVP PRN (12:00)
[2016-10-04] MEDS ORDERED: Nicotine 21 MG PATCH.TD24 TD PRN (12:03)
[2016-10-04 12:15] LABS: ABG Base Excess 4.9 mEq/L (-2.0 to 3.0); ABG HCO3 29.2 mEQ/L (21-27); ABG Oxygen Saturation 87 % (95-98); ABG PCO2 41 mmHg (35-45); ABG PH 7.46 pH Units (7.32-7.45); ABG TCO2 30.5 mEq/L (20-26); Blood Gas FiO2 100 %
[2016-10-04 12:17] LABS: ABG PO2 50 mmHg (85-104)
[2016-10-04] MEDS ORDERED: D5% in Water 1,000 ML IVC PRN (12:24)
[2016-10-04] MEDS ORDERED: Dextrose Gel 15 GM PO PRN ×2 (12:24)
--- NOTE | 2016-10-04 12:27 | Internal Med History&Physical ---
Date of Encounter: 10/04/16 Time of Encounter: 12:25 Assessment and Plan (1) Acute hypoxemic respiratory failure Current visit: Yes Status: Acute Acute Hypoxemic respiratory failure secondary to ARDS, at least moderate, given calculation from ABG -Obtain stat ABG -Place patient on BiPAP 06/13, FiO2 60%, RR 10 -Repeat CXR stat -Obtain blood, sputum, urine cultures, -send respiratory panel -Start on Vancomycin and Zosyn for now, -Discontinue Levaquin, patient has had Levaquin for at least 6 days from 09/29 till today -Monitor vancomycin level, pharmacy to dose -Hold IVF for now, strict intake/output monitoring -Consult Pulmonology STAT -ECHO from 09/22 noted, will not repeat for now -Patient is high risk due to severe disease, risk of further respiratory compromise requiring invasive mechanical ventilation and risk of . He is also on vanco which requires monitoring for toxicity as well as Coumadin which requires monitoring -HE is FULL CODE (2) Multifocal pneumonia Current visit: Yes Status: Acute As above Follow resp panel (3) ARDS (adult respiratory distress syndrome) Current visit: Yes Status: Acute As above (4) History of stroke Current visit: Yes Status: Chronic Stable, moves all limbs, slight dysarthria Hold Coumadin and ASA for now fariha to supratherapeutic INR (5) HLD (hyperlipidemia) Current visit: Yes Status: Chronic Uncontrolled, resume home meds Qualifiers: Hyperlipidemia type: unspecified Qualified Code(s): E78.5 - Hyperlipidemia , unspecified (6) HTN (hypertension) Current visit: Yes Status: Chronic Controlled, recheck BP with appropriate cuff Hold meds for now Qualifiers: Hypertension type: unspecified secondary hypertension Qualified Code(s): I15.9 - Secondary hypertension, unspecified; I15 - Secondary hypertension (7) Hypothyroid Current visit: Yes Status: Chronic Continue synthroid Qualifiers: Hypothyroidism type: unspecified Qualified Code(s): E03.9 - Hypothyroidism , unspecified (8) Nicotine dependence with nicotine-induced disorder Current visit: Yes Status: Chronic NRT Qualifiers: Nicotine product type: cigarettes Qualified Code(s): F17.219 - Nicotine dependence, cigarettes, with unspecified nicotine-induced disorders (9) Type 2 diabetes mellitus Current visit: Yes Status: Chronic FS q4h NPO for now Sliding scale insulin A1C 7.7 in 08/2016 Goal FS 140-180mg/dl Qualifiers: Diabetes mellitus complication status: with unspecified complications Diabetes mellitus assisted insulin use: without assisted use Qualified Code( s): E11.8 - Type 2 diabetes mellitus with unspecified complications (10) Supratherapeutic INR Current visit: Yes Status: Acute (11) Atrial fibrillation Current visit: Yes Status: Acute rate controlled, hold cardizem/toprol due to low SBP, hold Coumadin, monitor INR Qualifiers: Atrial fibrillation type: chronic Qualified Code(s): I48.2 - Chronic atrial fibrillation Internal Medicine - H&P: HPI Chief complaint: Difficulty breathing Admitted From: Hospital to Hospital Transfer Plans for Post Hospital Care: Transfer In Rehab Fac History of present illness: Mr. Phillips is a 75 Y/O M admitted to in-patient here as a transfer from [facility] in-patient He has a PMH of Afib on Coumadin, s/p CVA with residual dysarthria, HT, Hypothyroidism, HLD, GERD, daily smoker He was admitted to [facility] on 09/19 and discharged 09/29 to [facility] after being managed for acute hypoxic respiratory failure secondary to RLL pneumonia and deconditioning He has been getting worse during rehab with O2 levels dropping to 78% with minimal exertion and he has been requiring 5 L of O2 by AK to maintain a sat of at least 90% EMR reviewed extensively. Vitals have been stable since discharge from [facility] on except increasing O2 requirements, he has been afebrile, BP has been acceptable. Labs revealed leukocytosis with left shift and toxic granulations 16.2-28.3-22.3 -20.7, HB/HCt has been stable and PLT WNL. INR was therapeutic initially, then supratherapeutic for the past 2 days 6.4/4.7 respectively. Comprehensive panel with azotemia and hypoalbuminemia, otherwise unremarkable. Lipid panel with elevated LDL and decreased HDL. BNP done 10/03 was 67, and troponin was negative. A1C was 7.7 in 08/2016. ABG done 09/26 revealed PH 7.4, PCO2 41, PO2 68, FiO2 36%. PaO2/FiO2 ratio 189. CXR done 10/03 revealed worsening bilateral diffuse interstitial and alveolar infiltrates, worse from CXR on discharge 09/29 ECHO done 10/04 revealed LVEF 60-65%, normal LV chamber size wall thickness and motion, indeterminate diastolic function, normal RV size and function, moderate- severely dilated LA, mild MR, Mild Pulm HTN, no wall motion abnormalities He is reviewed at bedside immediately post-arrival He complains of shortness of breath that has not been relieved through his course of admission here at [facility] and at [facility]. He endorses cough not productive of sputum. No hemoptysis, no hematemesis, no difficulty swallowing, or history of aspirations. Denies chest pain, palpitations, leg edema, orthopnea, nausea, vomiting or diarrhea, has adequate urinary output and denies dysuria. Other ROS unremarkable Past Med Surg Social Fam HX - Past Medical History Medical history: arthritis, atrial fibrillation, COPD, CVA, diabetes, GERD, hyperlipidemia, hypertension, thyroid disease, other Psychiatric history: other - Past Surgical History Surgical History: cataract, orthopedic, other, other - Social History Smoking Status: Current every day smoker Smokeless Tobacco Status: No Alcohol use: none Drug use: none - Family History Mother Living Status: Hx Family Cardiac Disorders: Yes Hx Family Respiratory Disorders: No Hx Family Cancer: No Hx Family GI Disorders: No Hx Family Endocrine Disorder: No Hx Family Neuromuscular Disorders: No Hx Family Neurologic Disorders: No Hx Family HEENT Disorders: No Hx Family Autoimmune Disorders: No Father Living Status: Hx Family Cardiac Disorders: No Hx Family Respiratory Disorders: No Hx Family Cancer: No Hx Family GI Disorders: No Hx Family Endocrine Disorder: Yes (DM) Hx Family Neuromuscular Disorders: No Hx Family Neurologic Disorders: No Hx Family HEENT Disorders: No Hx Family Autoimmune Disorders: No Internal Medicine - H&P: Meds Allopurinol [Zyloprim 100 MG] 100 mg PO DAILY 09/21/16 [History] Aspirin [Ecotrin] 325 mg PO DAILY 09/21/16 [History] Digoxin [Lanoxin] 0.25 mg PO DAILY 09/21/16 [History] Diltiazem CD (24hr) [Cardizem CD] 240 mg PO DAILY 09/21/16 [History] Docusate [Colace] 100 mg PO TID 09/21/16 [History] Gemfibrozil [Lopid] 600 mg PO BIDWM 09/21/16 [History] GlipiZIDE [Glipizide ER] 10 mg PO BID 09/21/16 [History] Hydrochlorothiazide 25 mg PO DAILY 09/21/16 [History] Levothyroxine [Synthroid] 25 mcg PO DAILY 09/21/16 [History] Lisinopril [Zestril] 20 mg PO DAILY 09/21/16 [History] Metformin HCl [Glucophage] 1,000 mg PO BID 09/21/16 [History] Polyethylene Glycol 3350 [MiraLAX Powder Bulk 17.9 Oz] 17 gm PO DAILY 09/21/16 [ History] Pravastatin Sodium [Pravachol] 40 mg PO HS 09/21/16 [History] Warfarin [Coumadin] 5 mg PO SUTUTHSA 09/21/16 [History] Metoprolol XL (24 HR) Succ [Toprol Xl] 25 mg PO QPM 09/22/16 [History] Warfarin [Coumadin] 2.5 mg PO MOWEFR 09/22/16 [History] Albuterol Neb [Proventil Neb] 2.5 mg IH [id number] PRN #0 inhsol 09/29/16 [Rx] Cefepime HCl/Dextrose, Iso-Osm [Cefepime 2 gm Injection] 2 gm IV Q12H #10 [id number] 09/29/16 [Rx] Furosemide [Lasix] 40 mg IVP DAILY vial 09/29/16 [Rx] GuaiFENesin ER [Mucinex] 1,200 mg PO BID tbbp.12hr 09/29/16 [Rx] Insulin DETEMIR [Levemir] 15 unit SQ BID [id number] 09/29/16 [Rx] Insulin LISPRO [HumaLOG] 0 units SQ HS vial 09/29/16 [Rx] Insulin LISPRO [HumaLOG] 0 units SQ TIDAC vial 09/29/16 [Rx] Insulin LISPRO [HumaLOG] 5 units SQ TIDWM vial 09/29/16 [Rx] Ipratropium/Albuterol Neb [Duoneb] 3 ml IH [id number] inhsol 09/29/16 [Rx] LORazepam [Ativan] 0.5 mg PO QID PRN #20 tablet 09/29/16 [Rx] Levofloxacin 750 mg PO DAILY tablet 09/29/16 [Rx] Nicotine Patch [Nicoderm] 21 mg TD DAILY PRN #0 patch.td24 09/29/16 [Rx] OxyCODONE Immed Rel [Roxicodone 5 MG] 5 mg PO Q6HR PRN #20 tablet 09/29/16 [Rx] OxyCODONE Immed Rel [Roxicodone 5 MG] 10 mg PO Q6HR PRN #20 tablet 09/29/16 [Rx] Cefepime HCl [Maxipime] 2,000 mg IVPB Q12H vial 10/04/16 [Rx] Dextrose 50 % in Water (Syg) [Dextrose 50% (Syg)] 25 ml IVP AD PRN #0 syringe [Rx] Dextrose Gel [Gluctose] 15 gm PO ONCE PRN #0 gel..gram. 10/04/16 [Rx] Dextrose Gel [Gluctose] 30 gm PO ONCE PRN #0 gel..gram. 10/04/16 [Rx] Glucagon, Human Recombinant [Glucagen] 1 mg IM ONCE PRN #0 vial 10/04/16 [Rx] Insulin LISPRO [HumaLOG] 0 units SQ HS vial 10/04/16 [Rx] Insulin LISPRO [HumaLOG] 0 units SQ TIDAC vial 10/04/16 [Rx] MethylPREDNISolone [Solu-MEDROL] 60 mg IVP Q8HR vial 10/04/16 [Rx] Allergies No Known Allergies Allergy (Verified 09/21/16 20:05) All Systems PM: A 10-system review of systems was performed and is negative for pertinent findings except as documented above in the HPI. - Constitutional Constitutional: as per HPI - EENT Eyes: as per HPI Ears: as per HPI Nose, mouth and throat: as per HPI - Breasts Breasts: as per HPI - Cardiovascular Cardiovascular ROS IM: as per HPI - Respiratory Respiratory: as per HPI - Gastrointestinal Gastrointestinal: as per HPI - Genitourinary Genitourinary ROS male: as per HPI - Musculoskeletal Musculoskeletal ROS IM: as per HPI - Integumentary Integumentary IM: as per HPI - Neurological Neurological ROS: as per HPI - Psychiatric Psychiatric: as per HPI - Endocrine Endocrine IM: as per HPI - Hematologic/Lymphatic Hematologic/Lymphatic: as per HPI - Allergic/Immunologic Allergic/Immunologic: as per HPI - Constitutional Vitals: Temp Pulse Resp BP Pulse Ox 97.9 F 93 22 83/62 90 L 10/04/16 11:44 10/04/16 11:44 10/04/16 11:44 10/04/16 11:44 10/04/16 11:44 General appearance: Present: mild distress, A&O X 3, answers questions appropriately Exam: Physical Exam VS- HR controlled, O2 sat 90% on 100% FiO2, tachypneic RR 22 Gen: Speaks full sentences, Neuro: Alert, awake, oriented slightly dysarthric but comprehensible HEENT: Moist oral mucosa, no JVD, no cyanosis Chest: Diffuse rales, bilaterally. Tachypneic, no wheezing Heart: S1, S2, irregular. No m/g/r Abdomen: Soft, not tender, no palpably enlarged organs Extremities: No edema bilaterally Internal Med - H&P Results - ABG Interpretation ABG results: 10/04/16 12:08 ABG pH 7.46 H ABG pCO2 41 ABG pO2 50 L* ABG HCO3 29.2 H ABG Total CO2 30.5 H ABG O2 Saturation 87 L ABG Base Excess 4.9 H
[2016-10-04] MEDS ORDERED: Vancomycin 1,000 MG in D5% in Water 250 ML IVPB SCH (13:00)
[2016-10-04] MEDS ORDERED: 0.9 % Sodium Chloride 1,000 ML ONE (13:48)
--- NOTE | 2016-10-04 14:22 | Pulmonology Consult Note ---
<Jerel Stafford - Last Filed: 10/04/16 17:20> Date of Encounter: 10/04/16 Time of Encounter: 14:05 Assessment and Plan (1) ARDS (adult respiratory distress syndrome) Current Visit: Yes Status: Acute 75 y/o male hx of COPD, afib, CVA, diabetes, HTN [facility] with worsening SOB. He was recently discharged from [facility] with diagnosis of ARF with hypoxia and hypercapnia, RLL pneumonia and deconditioning. He was treated with levaquin and cefepime previously. At rehab his respiratory status was worsening an oxygen requirement increasing. Patient to 5 L of O2 to maintain saturations above 90%. Patient was transferred from floor to ICU due to worsening respiratory status on BIPAP saturation in 80%. CXR shows diffuse patchy opacities. CT 09/23/15 shows air bronchogram, ground glass opacities, dialated left atrium. ABG pH 7.46, p CO2 41 PO2 50. A-a gradient-48.5 PaO2/FiO2 ratio is 50. BNP 28 No edema on physical exam EKG afib rate 70 ECho LVEF 60-65% dilated left atrium with mitral regurg, mild pulmonary hypertension. Worsening respiratory status within last week, PaO2/FiO2 50, bilateral diffuse airway opacities on CXR, cardiogenic etiology less likely: BNP 28, no edema on exam, echo states indeterminate diastolic dysfunction however patient has dilated left atrium. Plan: Respiratory infection panel, blood culture, rapid influenza, AMA, CRP, lactic acid, ANCA, PT/INR, CBC, CMP Start vancomycin and Meropenam Solumedrol Plan: Will intubate if patients Respiratory status further declines. Start femoral CVC. Family was reached and knows about patients status. Full Code, however patient would only like to be intubated if its short term measure. (2) Sepsis Current Visit: Yes Status: Acute Qualifiers: Sepsis type: sepsis due to unspecified organism Qualified Code(s): A41.9 - Sepsis, unspecified organism (3) Supratherapeutic INR Current Visit: Yes Status: Acute On warfarin for Afib. INR 4.1. Reverse with 2 FFP and vitamin K CBC and INR in morning. No signs of bleeding on exam H/H stable 11. (4) Atrial fibrillation Current Visit: Yes Status: Acute controlled. rate controlled on diltizaem. On digoxin, metoprolol EKG shows afib rate is 70. INR 4.1. will reverse with FFP and Vit K Qualifiers: Atrial fibrillation type: chronic Qualified Code(s): I48.2 - Chronic atrial fibrillation (5) HTN (hypertension) Current Visit: Yes Status: Chronic BP controlled. will hold home meds as patient is unstable and may have declining cardiovascular status in the future. Patient has been ordered phenylep Qualifiers: Hypertension type: unspecified secondary hypertension Qualified Code(s): I15.9 - Secondary hypertension, unspecified; I15 - Secondary hypertension (6) Hx of diabetes mellitus Current Visit: Yes Status: Chronic hx of DM. patient is NPO Q6H SSI. History of Present Illness Consult date: 10/04/16 Requesting physician: Adriel Evans Reason for consult: dyspnea Chief complaint: sob History of present illness: 57-year-old male with a history of atrial fibrillation on warfarin, CVA, COPD, tobacco abuse, hypertension presented with chief complaint of shortness of breath. Patient was admitted 09/19 at [facility] for acute hypoxic respiratory failure secondary to right lower lobe pneumonia. Patient was d/c 09/29 t [facility]. At rehab patients respiratory status was worsening with O2 levels dropping to 78%. Patient started requiring 5L O2 for oxygenation >90%. ABG shows pO2 of 50, pH 7.46 and pCO2 41. INR 4.1. Scr WNL, BNP WNL, digoxin level WNL, respiratory panel negative. CXR shows diffuse patchy airway opacities. We are consulted due to worsening respiratory status and possible ARDS picture. Patient was evaluated. Was in respiratory distress on BIPAP saturating at 80%. Decision was made to move him to ICU. Past Med Surg Social Fam HX - Past Medical History Medical history: arthritis, atrial fibrillation, COPD, CVA, diabetes, GERD, hyperlipidemia, hypertension, thyroid disease, other Psychiatric history: other - Past Surgical History Surgical History: cataract, orthopedic, other, other - Social History Smoking Status: Current every day smoker Smokeless Tobacco Status: No Alcohol use: none Drug use: none - Family History Mother Living Status: Hx Family Cardiac Disorders: Yes Hx Family Respiratory Disorders: No Hx Family Cancer: No Hx Family GI Disorders: No Hx Family Endocrine Disorder: No Hx Family Neuromuscular Disorders: No Hx Family Neurologic Disorders: No Hx Family HEENT Disorders: No Hx Family Autoimmune Disorders: No Father Living Status: Hx Family Cardiac Disorders: No Hx Family Respiratory Disorders: No Hx Family Cancer: No Hx Family GI Disorders: No Hx Family Endocrine Disorder: Yes (DM) Hx Family Neuromuscular Disorders: No Hx Family Neurologic Disorders: No Hx Family HEENT Disorders: No Hx Family Autoimmune Disorders: No Medications and Allergies Allopurinol [Zyloprim 100 MG] 100 mg PO DAILY 09/21/16 [History] Aspirin [Ecotrin] 325 mg PO DAILY 09/21/16 [History] Digoxin [Lanoxin] 0.25 mg PO DAILY 09/21/16 [History] Diltiazem CD (24hr) [Cardizem CD] 240 mg PO DAILY 09/21/16 [History] Docusate [Colace] 100 mg PO TID 09/21/16 [History] Gemfibrozil [Lopid] 600 mg PO BIDWM 09/21/16 [History] GlipiZIDE [Glipizide ER] 10 mg PO BID 09/21/16 [History] Hydrochlorothiazide 25 mg PO DAILY 09/21/16 [History] Levothyroxine [Synthroid] 25 mcg PO DAILY 09/21/16 [History] Lisinopril [Zestril] 20 mg PO DAILY 09/21/16 [History] Metformin HCl [Glucophage] 1,000 mg PO BID 09/21/16 [History] Polyethylene Glycol 3350 [MiraLAX Powder Bulk 17.9 Oz] 17 gm PO DAILY 09/21/16 [ History] Pravastatin Sodium [Pravachol] 40 mg PO HS 09/21/16 [History] Warfarin [Coumadin] 5 mg PO SUTUTHSA 09/21/16 [History] Metoprolol XL (24 HR) Succ [Toprol Xl] 25 mg PO QPM 09/22/16 [History] Warfarin [Coumadin] 2.5 mg PO MOWEFR 09/22/16 [History] Albuterol Neb [Proventil Neb] 2.5 mg IH [id number] PRN #0 inhsol 09/29/16 [Rx] Furosemide [Lasix] 40 mg IVP DAILY vial 09/29/16 [Rx] GuaiFENesin ER [Mucinex] 1,200 mg PO BID tbbp.12hr 09/29/16 [Rx] Insulin DETEMIR [Levemir] 15 unit SQ BID [id number] 09/29/16 [Rx] Ipratropium/Albuterol Neb [Duoneb] 3 ml IH [id number] inhsol 09/29/16 [Rx] LORazepam [Ativan] 0.5 mg PO QID PRN #20 tablet 09/29/16 [Rx] Levofloxacin 750 mg PO DAILY tablet 09/29/16 [Rx] Nicotine Patch [Nicoderm] 21 mg TD DAILY PRN #0 patch.td24 09/29/16 [Rx] OxyCODONE Immed Rel [Roxicodone 5 MG] 5 mg PO Q6HR PRN #20 tablet 09/29/16 [Rx] OxyCODONE Immed Rel [Roxicodone 5 MG] 10 mg PO Q6HR PRN #20 tablet 09/29/16 [Rx] Cefepime HCl [Maxipime] 2,000 mg IVPB Q12H vial 10/04/16 [Rx] Glucagon, Human Recombinant [Glucagen] 1 mg IM ONCE PRN #0 vial 10/04/16 [Rx] Insulin LISPRO [HumaLOG] 5 units SQ ACHS 10/04/16 [History] MethylPREDNISolone [Solu-MEDROL] 60 mg IVP Q8HR vial 10/04/16 [Rx] Allergies No Known Allergies Allergy (Verified 09/21/16 20:05) ROS unobtainable: other (due to being on BIPAP and Acute respriatory distress ) All Systems: A 10-system review of systems was performed and is negative for pertinent findings except as documented above in the HPI. Physical Examination Vital Signs: Vital Signs, Last 4 Hours Temp Pulse Resp BP Pulse Ox 10/04/16 11:44 97.9 F 93 22 83/62 92 L General appearance: alert, agitated, appears uncomfortable, other Eyes: nonicteric ENT: oropharynx moist Mallampati (class): 3 Neck: no lymphadenopathy, no JVD Effort: very labored Auscultation: bilateral: diminished breath sounds, rales Cardiovascular: irregular rhythm (afib with PVC) Gastrointestinal: normoactive bowel sounds, soft, non-tender, non-distended Integumentary: normal Extremities: no cyanosis, no edema, no clubbing normal mental status anxious Results - Laboratory Findings ABG ABG pH 7.46 pH Units (7.32-7.45) H 10/04/16 12:08 ABG pCO2 41 mmHg (35-45) 10/04/16 12:08 ABG pO2 50 mmHg (85-104) L* 10/04/16 12:08 ABG O2 Saturation 87 % (95-98) L 10/04/16 12:08 Abnormal lab findings: Abnormal lab results ABG pH 7.46 pH Units (7.32-7.45) H 10/04/16 12:08 ABG pO2 50 mmHg (85-104) L* 10/04/16 12:08 ABG HCO3 29.2 mEQ/L (21-27) H 10/04/16 12:08 ABG Total CO2 30.5 mEq/L (20-26) H 10/04/16 12:08 ABG O2 Saturation 87 % (95-98) L 10/04/16 12:08 ABG Base Excess 4.9 mEq/L (-2.0 to 3.0) H 10/04/16 12:08 - Diagnostic Findings Chest x-ray: report reviewed CT scan - chest: report reviewed - Clinical Findings Intake & Output: Intake & Output 10/03/16 10/04/16 10/04/16 23:59 07:59 15:59 Output Total 300 / 300 Balance -300 / -300 Weight 80.5 kg Consult Discharge Plan - Plan Referrals: NO,PCP [Primary Care Provider] - <Yeyo Whatley W - Last Filed: 10/04/16 17:33> Date of Encounter: 10/04/16 All Systems: A 10-system review of systems was performed and is negative for pertinent findings except as documented above in the HPI. Physical Examination Vital Signs: Vital Signs, Last 4 Hours Temp Pulse Resp BP Pulse Ox 10/04/16 15:04 91 23 115/61 97 10/04/16 14:04 97.0 F L 84 30 107/66 97 10/04/16 11:44 97.9 F 93 22 83/62 92 L Results - Laboratory Findings ABG ABG pH 7.46 pH Units (7.32-7.45) H 10/04/16 12:08 ABG pCO2 41 mmHg (35-45) 10/04/16 12:08 ABG pO2 50 mmHg (85-104) L* 10/04/16 12:08 ABG O2 Saturation 87 % (95-98) L 10/04/16 12:08 Abnormal lab findings: Abnormal lab results ABG pH 7.46 pH Units (7.32-7.45) H 10/04/16 12:08 ABG pO2 50 mmHg (85-104) L* 10/04/16 12:08 ABG HCO3 29.2 mEQ/L (21-27) H 10/04/16 12:08 ABG Total CO2 30.5 mEq/L (20-26) H 10/04/16 12:08 ABG O2 Saturation 87 % (95-98) L 10/04/16 12:08 ABG Base Excess 4.9 mEq/L (-2.0 to 3.0) H 10/04/16 12:08 Lactic Acid 3.9 mmol/L (0.5-2.2) H 10/04/16 14:39 C-Reactive Protein 42 mg/L (Less than 5) H 10/04/16 14:39 Urine Protein 30 mg/dL (Neg-Trace) H 10/04/16 14:15 Ur Squamous Epith Cells Moderate per lpf (None-Few) H 10/04/16 14:15 - Clinical Findings Intake & Output: Intake & Output 10/03/16 10/04/16 10/04/16 23:59 07:59 15:59 Output Total 400 / 400 Balance -400 / -400 Weight 80.5 kg - Attending Attestation I examined this patient and my medical decision-making was reviewed with the COATING AND BAKING OPERATOR/PA/Advanced Practice Nurse/Resident Physician. I agree with the documented findings, disposition and treatment plan as described except to the extent set forth below. Patient seen and examined at bedside Labs, radiology, chart personally reviewed. All lines examined without evidence of infection. Neuropsych: Awake and alert prior history of CVA no new focal deficits on exam today. Pulm: Acute on Chronic Hypoxic Resp Failure with evidence of b/l alveolar opacities concerning for Non Cardiogenic Edema (ARDS) however last ECHO equivocal for CHF holding diuresis acutely for BP. DDx AEP, AIP, DAH (less likely), drug pneumonitis although no clear offending agents. Tolerating Bileval PAP support at present but may need intubation. Too unstable for bronchoscopy at present unless intubated. Respiratory infection still considered possible and infectious panel ordered. Started on ABx coverage. Continue Steroids Cards: ECG w/o STEMI. Denies Chest Pain. Checking BNP and Trop. Afib rate controlled. FEN-GI: NPO for now. Renal: No evidence of KRUNAL will monitor lytes daily ID: ON Vanc/Augustus for worsening WBC count and respiratory failure despite Levaquin and Cefepime to cover for MRSA and inducible ESBL resistance. Cultures pending. Lactate elevated to > 3 Heme/Onc: Anticogulated for Afib FFp for CVC placment. and possible bronch Endo: glucose monitred Integ/MSK: skin care per ICU protocol CODE: Full Code at present.
[2016-10-04 14:36] LABS: Bilirubin,Urine Negative (Negative); Blood,Urine Negative (Negative); Clarity,Urine Clear (Clear); Color,Urine Yellow (Yellow); Glucose,Urine (UA) Normal (Normal); Ketones,Urine Negative (Negative); Leukocyte Esterase,Urine Negative (Negative); Nitrite,Urine Negative (Negative); Protein,Urine 30 mg/dL (Neg-Trace); Specific Gravity,Urine 1.014 (1.010-1.025); Urobilinogen,Urine Normal (Normal)
[2016-10-04 14:38] LABS: Bacteria,Urine None Seen per hpf (None-Few); Hyaline Casts,Urine None Seen per lpf (None-Few); RBC,Urine 0-3 per hpf (0-3); Squamous Epithelial Cell,Urine Moderate per lpf (None-Few); WBC,Urine 0-3 per hpf (0-3)
[2016-10-04] MEDS: Vancomycin 1,250 MG in D5% in Water 250 ML IVPB SCH (14:46)
[2016-10-04] MEDS ORDERED: Cefepime HCl 2,000 MG in D5% in Water (Mini-Bag+) 100 ML IVPB SCH (16:00)
[2016-10-04] MEDS ORDERED: Furosemide 20 MG/2 ML VIAL IVP ONE (16:25)
--- NOTE | 2016-10-04 17:28 | Procedure Note ---
<Jerel Stafford - Last Filed: 10/04/16 17:23> Date of procedure: 10/04/16 Pre-op diagnosis: Central venous access Post-op diagnosis: same Procedure: Consent was obtained from patients POA for procedure. A time-out was completed verifying correct patient, procedure, site, positioning , and special equipment if applicable. The patient was placed in a dependent position appropriate for central line placement based on the vein to be cannulated. US was used to located the left femoral vein. The patients left groin was prepped and draped in sterile fashion. 1% Lidocaine was used to anesthetize the surrounding skin area. A triple lumen 9-Citizen Of [place] Cordis catheter was introduced into the the left common femoral vein using the Seldinger technique and under ultrasound guidance. The catheter was threaded smoothly over the guide wire and appropriate blood return was obtained. Each lumen of the catheter was evacuated of air and flushed with sterile saline. The catheter was then sutured in place to the skin and a sterile dressing applied. Perfusion to the extremity distal to the point of catheter insertion was checked and found to be adequate. Dr. Gaitan was present for the entire procedure. Anesthesia: local Surgeon: Yola Bowen Dowel Pin Worker: Yeyo Whatley Estimated blood loss (cc): 5 IV fluids (cc): 0 Condition: stable Disposition: ICU <Yeyo Whatley - Last Filed: 10/04/16 19:40> Procedure: I was present for the entire procedure
[2016-10-04] MEDS: methylPREDNISolone 125 MG/2 ML VIAL IVP SCH ×2 (17:30→23:10)
[2016-10-04] MEDS: Meropenem 1,000 MG in 0.9 % Sodium Chloride Mini Bag 100 ML IVPB SCH ×2 (17:30→23:09)
[2016-10-04] MEDS ORDERED: Metoprolol XL (24 HR) Succ 25 MG TAB.ER.24H PO SCH (18:00)
[2016-10-04] MEDS: *HR* Dextrose 50 % in Water (Syg) 50 ML SYRINGE IVP PRN (18:06)
[2016-10-04] MEDS: Insulin LISPRO 300 UNITS/3 ML VIAL SQ SCH (18:07)
[2016-10-04] MEDS: Phenylephrine 10 MG in D5% in Water 250 ML IVC SCH (19:34)
[2016-10-04] MEDS: *HR* Morphine 2 MG/ML SYRINGE IVP PRN (20:00)
[2016-10-04] MEDS ORDERED: Dexmedetomidine HCl 400 MCG/100 ML MLS IVC ONE (20:28)
[2016-10-04] MEDS: Dexmedetomidine HCl 400 MCG/100 ML MLS IVC SCH (20:45)
[2016-10-05] MEDS: Insulin LISPRO 300 UNITS/3 ML VIAL SQ SCH ×5 (00:02→23:21)
[2016-10-05] MEDS: Vancomycin 1,250 MG in D5% in Water 250 ML IVPB SCH (00:13)
[2016-10-05] MEDS: Dexmedetomidine HCl 400 MCG/100 ML MLS IVC SCH (02:44)
[2016-10-05 03:30] LABS: Basophils % 0.2 %; Red Cell Distribution Width 15.4 % (11.5-14.5)
[2016-10-05 03:32] LABS: Basophils # 0.1 K/mcL (0.0-0.2); Hemoglobin 10.1 g/dL (12.9-16.9); Immature Platelets 4.2 % (1.1-6.1); Lymphocytes # 0.7 K/mcL (0.6-4.6); Lymphocytes % 2.5 %; Mean Corpuscular HGB Conc 31.6 g/dL (31.6-35.5); Mean Corpuscular Hemoglobin 27.2 pg (28.0-33.3); Mean Platelet Volume 10.8 fL (9.4-12.4); Monocytes # 1.1 K/mcL (0.0-1.3); Platelet Count 239 K/mcL (140-400); Red Blood Count 3.72 M/mcL (4.19-5.50); Segmented Neutrophils % 91.3 %
[2016-10-05 03:35] LABS: INR 2.2; Prothrombin Time 24.6 Seconds (9.4-12.1)
[2016-10-05 03:37] LABS: Activated Partial Thrombo Time 31.9 Seconds (26.0-36.0)
[2016-10-05 03:44] LABS: Alanine Aminotransferase 13 Units/L (0-55); Albumin 2.4 g/dL (3.5-5.0); Albumin/Globulin Ratio 0.6 (1.1-2.2); Alkaline Phosphatase 71 Units/L (38-126); Aspartate Amino Transferase 27 Units/L (5-34); BUN/Creatinine Ratio 61 (6-26); Bilirubin,Total 0.6 mg/dL (0.2-1.2); Blood Urea Nitrogen 65 mg/dL (8-26); Calcium 8.6 mg/dL (8.6-10.8); Carbon Dioxide 28 mEq/L (19-29); Chloride 99 mEq/L (98-109); Globulin 3.8 g/dL (2.4-3.5); Glucose 136 mg/dL (70-99); Magnesium 1.9 mg/dL (1.6-2.6); Osmolality,Calculated 311 (280-300); Phosphorous 4.2 mg/dL (2.3-4.7); Potassium 3.7 mEq/L (3.5-4.5); Sodium 140 mEq/L (136-145); Total Protein 6.2 g/dL (6.0-8.3); eGFR For African Americans > 60 (> 60); eGFR For Non-African Americans > 60 (> 60)
[2016-10-05 03:57] LABS: Platelet Estimate Normal (Normal)
[2016-10-05] MEDS: *HR* Morphine 2 MG/ML SYRINGE IVP PRN (07:40)
--- NOTE | 2016-10-05 08:02 | Pulmonology Progress Note ---
<Jerel Stafford - Last Filed: 10/05/16 15:32> Date of Encounter: 10/04/16 Time of Encounter: 13:46 Assessment and Plan (1) ARDS (adult respiratory distress syndrome) Current Visit: Yes Status: Acute 75 y/o male hx of COPD, afib, CVA, diabetes, HTN [facility] with worsening SOB. He was recently discharged from [facility] with diagnosis of ARF with hypoxia and hypercapnia, RLL pneumonia and deconditioning. He was treated with levaquin and cefepime previously. At rehab his respiratory status was worsening an oxygen requirement increasing. Patient to 5 L of O2 to maintain saturations above 90%. Patient was transferred from floor to ICU due to worsening respiratory status on BIPAP saturation in 80%. CXR shows diffuse patchy opacities. CT 09/23/15 shows air bronchogram, ground glass opacities, dialated left atrium. ABG pH 7.46, p CO2 41 PO2 50. A-a gradient-48.5 PaO2/FiO2 ratio is 50. BNP 28 No edema on physical exam EKG afib rate 70 ECho LVEF 60-65% dilated left atrium with mitral regurg, mild pulmonary hypertension. Worsening respiratory status within last week, PaO2/FiO2 50, bilateral diffuse airway opacities on CXR, cardiogenic etiology less likely: BNP 28, no edema on exam, echo states indeterminate diastolic dysfunction however patient has dilated left atrium. PLAN: Patient is now intubated on fentanyl, porpofol, versed, meropenam, vecuronium, vasopressin and levophed with epinephrine on hold. Repeat CBC shows BC count of 47.4 Started PCP and Aspergillius coverage with Bactrim and Voriconazole respectively. Continue vancomycin and Zosyn Started on solumedrol ABG shows pH 7.16 with PCo2 of 88 and PO2 of 79. Ventilator set with rate 29 and Tidal volume of 400. Prognosis very poor. Family notified. His CODE STATUS is changed to DNR CCA. (2) Sepsis Current Visit: Yes Status: Acute plan as above. Qualifiers: Sepsis type: sepsis due to unspecified organism Qualified Code(s): A41.9 - Sepsis, unspecified organism (3) Supratherapeutic INR Current Visit: Yes Status: Resolved On warfarin for Afib. Admission INR 4.1. Reverse with 2 FFP and vitamin K Now INR 1.7. Will start DVT prophylaxis No signs of bleeding on exam Hgb is 9.5. He has received >3L fluid today most likely dilutional (4) Atrial fibrillation Current Visit: Yes Status: Acute controlled. rate controlled on amiodarone EKG shows afib rate is 70. INR 1.7 start dvt prophylaxis Qualifiers: Atrial fibrillation type: chronic Qualified Code(s): I48.2 - Chronic atrial fibrillation (5) Hypotension Current Visit: Yes Status: Acute Most likely 2nd septic shock. Organism unknown On epinephrine and levophed' Has received 3L of 0.9% NS bolus. has r. arterial line continue to monitor Qualifiers: Hypotension type: unspecified hypotension type Qualified Code(s): I95.9 - Hypotension, unspecified (6) Hx of diabetes mellitus Current Visit: Yes Status: Chronic hx of DM. patient is NPO Q6H SSI. (7) Goals of care, counseling/discussion Current Visit: Yes Status: Acute Family notified that patients prognosis is very poor. Family at bedside right now. Subjective Principal diagnosis: acute respiratory failure with hypoxia Interval history: Patient tolerated BiPAP overnight. This morning he was satting in low 80s on BIPAP. Patient was told that next step would be intubation and mechanical ventilation. He agreed to the procedure. Patient was successfully intubated. He was started on fentanyl, propofol, precedex for sedation and phenylephrine for pressure control and given 1L 0.9% NS bolus was given. Initially patients vitals were stable. There after patients became hypotensive, bradycardic. He went into PEA and CODE BLUE was called at 945PM. CPR was initiated. Family was notified. Patient received 1mg epinephrine. 1L bolus 0.9% NS was given. CPR continued for two minutes and first pulse check was positive for positive and patient had ROSC. Thereafter patient was started on epinephrine drip. Phenylephrine and precedex were d/c. Bedside ultrasound was done to r/o pneumothorax. Arterial line was placed in the right radial artery. Patient's vitals stabilized. Family was notified and his code status was changed to DNR- CCA. Thereafter patient again started to become hypotensive. Vasopressin drip was started. Objective PUL Vital signs: Last Vital Signs Temp 96.8 F L 10/05/16 07:29 Pulse 110 10/05/16 07:32 Resp 15 10/05/16 06:13 BP 89/65 10/05/16 06:13 Pulse Ox 94 L 10/05/16 06:13 General appearance: asleep Eyes: nonicteric Neck: no lymphadenopathy Effort: other (on VC ) Auscultation: bilateral: diminished breath sounds Cardiovascular: irregular rhythm (afib) Gastrointestinal: normoactive bowel sounds, soft, non-tender Integumentary: other (R. femoral central line. R. radial arterial line. left hand 18 guage IV. ) unable to assess due to mental status Results - Laboratory Findings CBC and BMP: 10/05/16 13:30 10/05/16 13:30 ABG ABG pH 7.46 pH Units (7.32-7.45) H 10/04/16 12:08 ABG pCO2 41 mmHg (35-45) 10/04/16 12:08 ABG pO2 50 mmHg (85-104) L* 10/04/16 12:08 ABG O2 Saturation 87 % (95-98) L 10/04/16 12:08 PT/INR, D-dimer PT 24.6 Seconds (9.4-12.1) H D 10/05/16 03:15 Abnormal lab findings: Abnormal lab results WBC 26.3 K/mcL (4.3-11.1) H 10/05/16 03:15 RBC 3.72 M/mcL (4.19-5.50) L 10/05/16 03:15 Hgb 10.1 g/dL (12.9-16.9) L 10/05/16 03:15 Hct 32.0 % (37.5-50.1) L 10/05/16 03:15 MCH 27.2 pg (28.0-33.3) L 10/05/16 03:15 RDW 15.4 % (11.5-14.5) H 10/05/16 03:15 Neutrophils # 24.0 K/mcL (1.6-8.9) H 10/05/16 03:15 PT 24.6 Seconds (9.4-12.1) H D 10/05/16 03:15 ABG pH 7.46 pH Units (7.32-7.45) H 10/04/16 12:08 ABG pO2 50 mmHg (85-104) L* 10/04/16 12:08 ABG HCO3 29.2 mEQ/L (21-27) H 10/04/16 12:08 ABG Total CO2 30.5 mEq/L (20-26) H 10/04/16 12:08 ABG O2 Saturation 87 % (95-98) L 10/04/16 12:08 ABG Base Excess 4.9 mEq/L (-2.0 to 3.0) H 10/04/16 12:08 BUN 65 mg/dL (8-26) H 10/05/16 03:15 BUN/Creatinine Ratio 61 (6-26) H 10/05/16 03:15 Glucose 136 mg/dL (70-99) H 10/05/16 03:15 Calculated Osmolality 311 (280-300) H 10/05/16 03:15 Lactic Acid 4.2 mmol/L (0.5-2.2) H* 10/04/16 20:20 Ionized Calcium 1.03 mmol/L (1.15-1.35) L 10/05/16 03:15 C-Reactive Protein 42 mg/L (Less than 5) H 10/04/16 14:39 B-Natriuretic Peptide 173 pg/mL (0-100) H 10/04/16 14:22 Albumin 2.4 g/dL (3.5-5.0) L 10/05/16 03:15 Globulin 3.8 g/dL (2.4-3.5) H 10/05/16 03:15 Albumin/Globulin Ratio 0.6 (1.1-2.2) L 10/05/16 03:15 Urine Protein 30 mg/dL (Neg-Trace) H 10/04/16 14:15 Ur Squamous Epith Cells Moderate per lpf (None-Few) H 10/04/16 14:15 - Microbiology Findings Microbiology Findings: Microbiology, Last 48 Hours 10/04/16 19:30 Influenza Types A,B Antigen (AKIKO) - Final Nasopharyngeal - Clinical Findings Intake & Output: Intake & Output 10/04/16 10/05/16 10/05/16 23:59 07:59 15:59 Intake Total 705.5 / 705.5 450 / 450 Output Total 1200 / 1200 525 / 525 Balance -494.5 / -494.5 -75 / -75 Weight 82.2 kg Consult Discharge Plan - Plan Referrals: NO,PCP [Primary Care Provider] - <Yeyo Whatley W - Last Filed: 10/05/16 16:09> Date of Encounter: 10/04/16 Objective PUL Vital signs: Last Vital Signs Temp 97.7 F 10/05/16 09:22 Pulse 79 10/05/16 09:22 Resp 20 10/05/16 09:22 BP 81/54 10/05/16 09:22 Pulse Ox 86 L 10/05/16 09:22 Results - Laboratory Findings CBC and BMP: 10/05/16 13:30 10/05/16 13:30 ABG ABG pH 7.46 pH Units (7.32-7.45) H 10/04/16 12:08 ABG pCO2 41 mmHg (35-45) 10/04/16 12:08 ABG pO2 50 mmHg (85-104) L* 10/04/16 12:08 ABG O2 Saturation 87 % (95-98) L 10/04/16 12:08 PT/INR, D-dimer PT 24.6 Seconds (9.4-12.1) H D 10/05/16 03:15 Abnormal lab findings: Abnormal lab results WBC 26.3 K/mcL (4.3-11.1) H 10/05/16 03:15 RBC 3.72 M/mcL (4.19-5.50) L 10/05/16 03:15 Hgb 10.1 g/dL (12.9-16.9) L 10/05/16 03:15 Hct 32.0 % (37.5-50.1) L 10/05/16 03:15 MCH 27.2 pg (28.0-33.3) L 10/05/16 03:15 RDW 15.4 % (11.5-14.5) H 10/05/16 03:15 Neutrophils # 24.0 K/mcL (1.6-8.9) H 10/05/16 03:15 PT 24.6 Seconds (9.4-12.1) H D 10/05/16 03:15 ABG pH 7.46 pH Units (7.32-7.45) H 10/04/16 12:08 ABG pO2 50 mmHg (85-104) L* 10/04/16 12:08 ABG HCO3 29.2 mEQ/L (21-27) H 10/04/16 12:08 ABG Total CO2 30.5 mEq/L (20-26) H 10/04/16 12:08 ABG O2 Saturation 87 % (95-98) L 10/04/16 12:08 ABG Base Excess 4.9 mEq/L (-2.0 to 3.0) H 10/04/16 12:08 BUN 65 mg/dL (8-26) H 10/05/16 03:15 BUN/Creatinine Ratio 61 (6-26) H 10/05/16 03:15 Glucose 136 mg/dL (70-99) H 10/05/16 03:15 Calculated Osmolality 311 (280-300) H 10/05/16 03:15 Lactic Acid 4.2 mmol/L (0.5-2.2) H* 10/04/16 20:20 Ionized Calcium 1.03 mmol/L (1.15-1.35) L 10/05/16 03:15 C-Reactive Protein 42 mg/L (Less than 5) H 10/04/16 14:39 B-Natriuretic Peptide 173 pg/mL (0-100) H 10/04/16 14:22 Albumin 2.4 g/dL (3.5-5.0) L 10/05/16 03:15 Globulin 3.8 g/dL (2.4-3.5) H 10/05/16 03:15 Albumin/Globulin Ratio 0.6 (1.1-2.2) L 10/05/16 03:15 Urine Protein 30 mg/dL (Neg-Trace) H 10/04/16 14:15 Ur Squamous Epith Cells Moderate per lpf (None-Few) H 10/04/16 14:15 - Microbiology Findings Microbiology Findings: Microbiology, Last 48 Hours 10/04/16 19:30 Influenza Types A,B Antigen (AKIKO) - Final Nasopharyngeal - Clinical Findings Intake & Output: Intake & Output 10/04/16 10/05/16 10/05/16 23:59 07:59 15:59 Intake Total 705.5 / 705.5 450 / 450 0 / 0 Output Total 1200 / 1200 525 / 525 Balance -494.5 / -494.5 -75 / -75 0 / 0 Weight 82.2 kg - Attending Attestation I examined this patient and my medical decision-making was reviewed with the CLERICAL TRANSCRIBER/PA/Advanced Practice Nurse/Resident Physician. I agree with the documented findings, disposition and treatment plan as described except to the extent set forth below. I spent 80min of Critical Care time with this patient. It involved decision making of high complexity to assess, manipulate, and support vital organ system failure and/or to prevent further life threatening deterioration of the patient' s condition. The time involved in the performance of separately reportable procedures was not counted toward critical care time. Neuropsych: Intubated deeply sedated and paralyzed. PERRL Pulm: Severe refractory Hypoxemic respiratory failure (ARDS) leading to intubation this AM. Despite incorporating high PEEP O tidal volume progressive hypercarbic ARDS net protocol and paralysis (vecuronium) of patient space ventilation ratio has increased markedly over the course of the day. PEAK Goal < 35 with Plat goal <30. which is currently met. PaO2 goal >55. pH goal 7.20. Too unstable for bronchoscopy at present. Cards: Status post ACLS 1 today with ROSC (PEA) thought hypoxia medidated. Remains on 2pressors presently which is complicated by likely distributive shock from sepsis and acidosis. Afib with labile stable rate will start amiodarone. Consulting Cardiology ECHO. Cycle troponins. Patient is currently on high doses of Levophed and Vasopressin to mantain MAP >60 FEN-GI: NPO for now. Cont GI propylaxis Renal: Oliguric since AM. BUN/Creatinine modestly elevated espect worsening over next 24 hours may need CVVH ID: WBC count has doubled overnight which is consistent with overwhelming infection and septic shock will continue broad-spectrum antimicrobials with Vanc /Augustus but will also add coverage for fungal (invasive aspergillus) and PCP PNA ( voriconazole and IV bactrim). Fungal serologies added today Heme/Onc: LTA inuced coagulopathy has imprroved with FFP and Vit K. Endo: glucose monitored. Stress dose hydrocortisone instituted. Integ/MSK: skin care per ICU protocol CODE: DNRA. I had multiple long conversations with the patient's son and he is long-term girlfriend regarding grave prognosis and given refractory hypoxemia and use of multiple pressors explained that ACLS would be futile in this situation and recommend continuing full ICU support up until the point of cardiac arrest which could be imminent. All questions answered at bedsid Prognosis is poor
[2016-10-05] MEDS ORDERED: *HR* FentaNYL (PF) 100 MCG/2 ML VIAL ONE (08:14)
[2016-10-05] MEDS ORDERED: 0.9 % Sodium Chloride 1,000 ML ONE ×2 (08:23→13:03)
[2016-10-05] MEDS: FentaNYL (PF) 1,000 MCG in 0.9 % Sodium Chloride 80 ML IVC SCH ×3 (08:30→19:28)
--- NOTE | 2016-10-05 08:37 | Procedure Note ---
Date of procedure: 10/05/16 Pre-op diagnosis: Respiratory Failure Post-op diagnosis: same Procedure: Time out was deferred as the procedure was emergent.. The patient was placed in a flat position. Sedation was obtained using . The patient was easily ventilated using an Ambu bag. A GLIDESCOPE MAC 3/ BLADE was used and inserted into the oropharynx at which time there was a Grade 1 view of the vocal cords. A 8.0-wolof endotracheal tube was inserted and visualized going through the vocal cords. The stylette was removed. Colorimetric change was visualized on the CO2 meter. Breath sounds were heard in both lung lehman equally. The endotracheal tube was placed at 24 cm, measured at the lips A chest x-ray was ordered and is pending at this time to assess for pneumothorax and verify ETT placement. Surgeon: Yeyo Whatley Pathology: none sent Condition: critical Disposition: no change
[2016-10-05] MEDS: Phenylephrine 10 MG in D5% in Water 250 ML IVC SCH (08:40)
[2016-10-05] MEDS ORDERED: *HR* Midazolam HCl 2 MG/2 ML VIAL ONE (08:58)
[2016-10-05] MEDS ORDERED: Diltiazem CD (24hr) 240 MG CAPSULE PO SCH (09:00)
[2016-10-05] MEDS ORDERED: *HR* Digoxin 0.25 MG TABLET PO SCH (09:00)
[2016-10-05] MEDS ORDERED: Magnesium Sulfate 2 GM in D5% in Water 100 ML IVPB PRN (09:22)
[2016-10-05] MEDS ORDERED: 0.9 % Sodium Chloride 250 ML ONE (09:22)
[2016-10-05] MEDS ORDERED: Calcium Gluconate 1,000 MG in D5% in Water 100 ML IVPB PRN (09:22)
[2016-10-05] MEDS ORDERED: Lacri-Lube 3.5 GM TUBE BOTH EYES PRN (09:22)
[2016-10-05] MEDS: Norepinephrine 4 MG in D5% in Water 250 ML IVC STA ×3 (09:53→17:43)
[2016-10-05] MEDS ORDERED: 0.9 % Sodium Chloride 500 ML ONE (09:59)
[2016-10-05] MEDS ORDERED: *HR* Midazolam HCl 5 MG/5 ML VIAL IVP ONE (10:08)
[2016-10-05 10:15] LABS: ABG Base Excess 4.2 mEq/L (-2.0 to 3.0); ABG HCO3 31.7 mEQ/L (21-27); ABG Oxygen Saturation 81 % (95-98); ABG PCO2 63 mmHg (35-45); ABG PH 7.31 pH Units (7.32-7.45); ABG TCO2 33.6 mEq/L (20-26)
[2016-10-05 10:17] LABS: ABG PO2 50 mmHg (85-104)
[2016-10-05 10:18] LABS: Blood Gas FiO2 100 %; Blood Gas PEEP 15 cm H2O; Blood Gas Respiration Rate 12; Blood Gas VT 500 cc
[2016-10-05] MEDS ORDERED: Phenylephrine 50 MG in D5% in Water 250 ML IVC SCH (10:45)
[2016-10-05 11:24] LABS: Adenovirus Not Detected (Not Detect); Bordetella Pertussis Not Detected (Not Detect); Chlamydophila pneumoniae Not Detected (Not Detect); Coronavirus 229E Not Detected (Not Detect); Coronavirus HKU1 Not Detected (Not Detect); Coronavirus NL63 Not Detected (Not Detect); Coronavirus OC43 Not Detected (Not Detect); Human Metapneumovirus Not Detected (Not Detect); Human Rhinovirus/Enterovirus Not Detected (Not Detect); Influenza A Subtype 2009 H1 Not Detected (Not Detect); Influenza A Untypeable Not Detected (Not Detect); Influenza B Not Detected (Not Detect); Mycoplasma pneumoniae Not Detected (Not Detect); Parainfluenza Virus 1 Not Detected (Not Detect); Parainfluenza Virus 2 Not Detected (Not Detect); Parainfluenza Virus 3 Not Detected (Not Detect); Parainfluenza Virus 4 Not Detected (Not Detect); Respiratory Syncytial Virus Not Detected (Not Detect)
--- NOTE | 2016-10-05 11:28 | Cardiology Consult Note ---
<AlejandroLuz Mariamichael - Last Filed: 10/05/16 15:11> Date of Encounter: 10/04/16 Time of Encounter: 11:21 Assessment and Plan (1) Hypotension Current Visit: No earlier today, patient had questionable episode of cardiac arrest, rhythm was found to be PEA. He received two minutes of CPR. Patient is intubated and sedated in ICU, being treated for ARDS- management per primary service. Etiology of PEA likely secondary to ARDS Patient recently had Echo on 09/22/16 which showed LVEF 60-65%, normal LV chamber size, wall thickness and function, indeterminate diastolic function. Normal RV structure and function, mild MR, mild-moderate TR, mild pulmonary hypertension. EKG reviewed, showed Afib with some T wave inversions and ST depressions noted. No significant change compared to old EKG. troponins noted to be negative. Plan: repeat echo with results currently pending. If no change compared to prior echo, likely no further recommendations from cardiology standpoint. will continue to follow. (2) Atrial fibrillation Current Visit: Yes Status: Acute patient received FFP and vitamin K to reverse supratherapeutic INR. Patient is on Digoxin .25mg daily, Cardizem 240mg PO daily, Toprol XL 25mg Qam at home. Patient is currently on Levophed. On exam, patient is in Afib, with HR in high 90s- low 100s. Management per primary team. Discussion w patient/family: The assessment and plan as outlined above was discussed with the patient and/or family members who expressed understanding and agreement. All questions were answered. Thank you for involving us in the care of your patient. Please call with any questions. History of Present Illness Consult date: 10/05/16 Requesting physician: Yeyo Whatley Consult reason: cardiac arrest Chief complaint: shortness of breath History of present illness: Mr. Phillips is a 75 year old male with PMHx of Afib (on coumadin), arthritis, COPD, CVA, diabees, GERD, HLD, HTN, thyroid disease. He has a smoking hisotry. Patient was admitted on 10/04/16 as a transfer from [facility]. He was last admitted on 09/19 and then discharged on 09/29 to [facility] after being managed for acute hypoxic respiratory failure secondary to RLL pneumonia/deconditioning. After going to [facility], his condition got worse, and his oxygen sat would decrease rapidly into the 70s with minimal exertion. He was re admitted tot [facility] on 10/04 for acute hypoxic respiratory failure secondary to ARDS. He had been requiring 5L oxygen to maintain sat in the nineties. He was transferred to the ICU and was intubated. Today, he suffered a questionable cardiac arrest (nurses were not sure if there was a pulse). He was in PEA and received 2 minues of CPR. Cardiology was consulted for cardiac arrest and possible new ST depressions noted on telemetry. repeat echo was ordered by critical care team. patient recently had echo on 09/22/16 which showed LVEF 60-65%, normal LV chamber size and wall thickness, indeterminate diastolic function. Normal RV structure and fnction, mild MR, TR, mild pulm HTN. Tropes pending. Past Med Surg Social Fam HX - Past Medical History Medical history: arthritis, atrial fibrillation, COPD, CVA, diabetes, GERD, hyperlipidemia, hypertension, thyroid disease, other Psychiatric history: other - Past Surgical History Surgical History: cataract, orthopedic, other, other - Social History Smoking Status: Current every day smoker Smokeless Tobacco Status: No Alcohol use: none Drug use: none - Family History Mother Living Status: Hx Family Cardiac Disorders: Yes Hx Family Respiratory Disorders: No Hx Family Cancer: No Hx Family GI Disorders: No Hx Family Endocrine Disorder: No Hx Family Neuromuscular Disorders: No Hx Family Neurologic Disorders: No Hx Family HEENT Disorders: No Hx Family Autoimmune Disorders: No Father Living Status: Hx Family Cardiac Disorders: No Hx Family Respiratory Disorders: No Hx Family Cancer: No Hx Family GI Disorders: No Hx Family Endocrine Disorder: Yes (DM) Hx Family Neuromuscular Disorders: No Hx Family Neurologic Disorders: No Hx Family HEENT Disorders: No Hx Family Autoimmune Disorders: No Medications and Allergies Allopurinol [Zyloprim 100 MG] 100 mg PO DAILY 09/21/16 [History] Aspirin [Ecotrin] 325 mg PO DAILY 09/21/16 [History] Digoxin [Lanoxin] 0.25 mg PO DAILY 09/21/16 [History] Diltiazem CD (24hr) [Cardizem CD] 240 mg PO DAILY 09/21/16 [History] Docusate [Colace] 100 mg PO TID 09/21/16 [History] Gemfibrozil [Lopid] 600 mg PO BIDWM 09/21/16 [History] GlipiZIDE [Glipizide ER] 10 mg PO BID 09/21/16 [History] Hydrochlorothiazide 25 mg PO DAILY 09/21/16 [History] Levothyroxine [Synthroid] 25 mcg PO DAILY 09/21/16 [History] Lisinopril [Zestril] 20 mg PO DAILY 09/21/16 [History] Metformin HCl [Glucophage] 1,000 mg PO BID 09/21/16 [History] Polyethylene Glycol 3350 [MiraLAX Powder Bulk 17.9 Oz] 17 gm PO DAILY 09/21/16 [ History] Pravastatin Sodium [Pravachol] 40 mg PO HS 09/21/16 [History] Warfarin [Coumadin] 5 mg PO SUTUTHSA 09/21/16 [History] Metoprolol XL (24 HR) Succ [Toprol Xl] 25 mg PO QPM 09/22/16 [History] Warfarin [Coumadin] 2.5 mg PO MOWEFR 09/22/16 [History] Albuterol Neb [Proventil Neb] 2.5 mg IH [id number] PRN #0 inhsol 09/29/16 [Rx] Furosemide [Lasix] 40 mg IVP DAILY vial 09/29/16 [Rx] GuaiFENesin ER [Mucinex] 1,200 mg PO BID tbbp.12hr 09/29/16 [Rx] Insulin DETEMIR [Levemir] 15 unit SQ BID [id number] 09/29/16 [Rx] Ipratropium/Albuterol Neb [Duoneb] 3 ml IH [id number] inhsol 09/29/16 [Rx] LORazepam [Ativan] 0.5 mg PO QID PRN #20 tablet 09/29/16 [Rx] Levofloxacin 750 mg PO DAILY tablet 09/29/16 [Rx] Nicotine Patch [Nicoderm] 21 mg TD DAILY PRN #0 patch.td24 09/29/16 [Rx] OxyCODONE Immed Rel [Roxicodone 5 MG] 5 mg PO Q6HR PRN #20 tablet 09/29/16 [Rx] OxyCODONE Immed Rel [Roxicodone 5 MG] 10 mg PO Q6HR PRN #20 tablet 09/29/16 [Rx] Cefepime HCl [Maxipime] 2,000 mg IVPB Q12H vial 10/04/16 [Rx] Glucagon, Human Recombinant [Glucagen] 1 mg IM ONCE PRN #0 vial 10/04/16 [Rx] Insulin LISPRO [HumaLOG] 5 units SQ ACHS 10/04/16 [History] MethylPREDNISolone [Solu-MEDROL] 60 mg IVP Q8HR vial 10/04/16 [Rx] Allergies No Known Allergies Allergy (Verified 09/21/16 20:05) ROS unobtainable: due to endotracheal tube, due to mental status All Systems Review: A 10-system review of systems was performed and is negative for pertinent findings except as documented above in the HPI. Physical Examination Vital Signs, Last 4 Hours Temp Pulse Resp BP Pulse Ox Pulse Ox Pulse Ox 10/05/16 09:45 86 L 67 L 10/05/16 09:22 97.7 F 79 20 81/54 86 L 10/05/16 07:32 110 10/05/16 07:29 96.8 F L Pulse Ox Pulse Ox Pulse Ox 10/05/16 09:45 30 L 73 L 86 L 10/05/16 09:22 10/05/16 07:32 10/05/16 07:29 General: Other (patient is intubated and sedated. ) HEENT: Atraumatic, Normocephaly Cardiac: Other (irregular rate and rhythm. ) Lungs: Other (diminished breath sounds throughout ) Neuro: Other (intubated and sedated. ) Abdomen: Soft Skin: No rashes noted on visualized skin Extremities: No Cyanosis, Other (trace bilateral lower extremity edema. ) Results 10/05/16 13:30 10/05/16 13:30 Lab Results 10/04/16 10/04/16 10/05/16 14:22 14:22 03:15 WBC 26.3 H Hgb 10.1 L Hct 32.0 L Plt Count 239 INR APTT Sodium Potassium Chloride Carbon Dioxide BUN Creatinine Glucose Calcium Magnesium Total Bilirubin AST ALT Alkaline Phosphatase Troponin I 0.02 B-Natriuretic Peptide 173 H 10/05/16 10/05/16 10/05/16 03:15 03:15 10:16 WBC Hgb Hct Plt Count INR 2.2 D APTT 31.9 Sodium 140 Potassium 3.7 Chloride 99 Carbon Dioxide 28 BUN 65 H Creatinine 1.07 Glucose 136 H Calcium 8.6 Magnesium 1.9 Total Bilirubin 0.6 AST 27 ALT 13 Alkaline Phosphatase 71 Troponin I 0.03 B-Natriuretic Peptide Consult Discharge Plan - Plan Referrals: NO,PCP [Primary Care Provider] - <BaltazarElvira - Last Filed: 10/05/16 16:11> Date of Encounter: 10/04/16 Assessment and Plan Discussion w patient/family: The assessment and plan as outlined above was discussed with the patient and/or family members who expressed understanding and agreement. All questions were answered. Thank you for involving us in the care of your patient. Please call with any questions. History of Present Illness History of present illness: Mr. Phillips is a 75 year old male All Systems Review: A 10-system review of systems was performed and is negative for pertinent findings except as documented above in the HPI. Physical Examination Vital Signs, Last 4 Hours Pulse Resp BP Pulse Ox 10/05/16 15:38 36 97/60 103 H 10/05/16 15:00 91 30 96/62 89 L 10/05/16 14:22 30 111/60 92 L 10/05/16 14:00 85 30 107/59 91 L 10/05/16 13:00 115 28 90/40 89 L 10/05/16 12:12 22 105/52 90 L Results 10/05/16 13:30 10/05/16 13:30 Lab Results 10/04/16 10/05/16 10/05/16 14:22 03:15 03:15 WBC 26.3 H Hgb 10.1 L Hct 32.0 L Plt Count 239 INR 2.2 D APTT 31.9 Sodium Potassium Chloride Carbon Dioxide BUN Creatinine Glucose Calcium Magnesium Total Bilirubin AST ALT Alkaline Phosphatase Troponin I 0.02 10/05/16 10/05/16 10/05/16 03:15 10:16 13:30 WBC Hgb Hct Plt Count INR 1.7 APTT Sodium 140 Potassium 3.7 Chloride 99 Carbon Dioxide 28 BUN 65 H Creatinine 1.07 Glucose 136 H Calcium 8.6 Magnesium 1.9 Total Bilirubin 0.6 AST 27 ALT 13 Alkaline Phosphatase 71 Troponin I 0.03 10/05/16 10/05/16 13:30 13:30 WBC 47.4 H* D Hgb 9.5 L Hct 32.2 L Plt Count 343 INR APTT Sodium 142 Potassium 3.8 Chloride 100 Carbon Dioxide 27 BUN 70 H Creatinine 1.19 Glucose 361 H Calcium 8.6 Magnesium 2.3 Total Bilirubin AST ALT Alkaline Phosphatase Troponin I - Attending Attestation I examined this patient and my medical decision-making was reviewed with the ROCK CONTRACTOR/PA/Advanced Practice Nurse/Resident Physician. I agree with the documented findings, disposition and treatment plan. Mr. Phillips was recently admitted and treated for pneumonia and then discharged to [facility]. He was noted to be hypoxic at rehab and transferred back and admitted. He was in acute hypoxic respiratory failure and intubated. ICU team is suspicious for ARDS. We were consulted today out of concern for cardiopulmonary arrest early in the morning. Per nursing, patient's blood pressure decreased abruptly and then he became bradycardic, with heart rates in the 40's. He then lost a pulse per nursing. He received 2 minutes of CPR. I reviewed his ECG which is unchanged when compared to a prior ECG. I agree with ordering an echo for a review of structure and function. Overall, the event appears to be PEA and not secondary to ACS. Overall picture appears related to his underlying respiratory process. Of note, he has known AF. Heart rates now are stable. His coagulopathy was reversed.
--- NOTE | 2016-10-05 11:36 | Procedure Note ---
Date of procedure: 10/05/16 Pre-op diagnosis: Hypotension Post-op diagnosis: same Procedure: Time out was performed verifying correct patient, procedure, site, positioning, and special equipment. Roman's test was performed to ensure adequate perfusion. he patients right wrist was prepped and draped in a sterile fashion. Patient was sedated Ramsy scale 5, therefore local anesthesia was not used. Ultrasound was used to locate right radial artery. Needle was inserted using ultrasound guidance until return of pulsatile blood was seen. Next, guidewire was tunneled through the needle, and needle was removed. Arterial line catheter was threaded over the guidewire and inserted into radial artery. Catheter was sutured in place and sterile dressing applied. Perfusion to the distal extremities remained adequate after procedure. Dr. Gaitan was present for the entire length of the procedure. Anesthesia: IV sedation (patient on fentanyl, propol and versed drip. ) Surgeon: Jerel Stafford Cured Meats Supervisor: Yeyo Whatley Estimated blood loss (cc): 5 Condition: critical Disposition: ICU
[2016-10-05] MEDS: Meropenem 1,000 MG in 0.9 % Sodium Chloride Mini Bag 100 ML IVPB SCH ×2 (11:49→21:12)
[2016-10-05] MEDS: methylPREDNISolone 125 MG/2 ML VIAL IVP SCH (11:49)
[2016-10-05] MEDS: Pantoprazole 40 MG VIAL IVP SCH (11:51)
[2016-10-05 11:57] LABS: ABG Base Excess 1.6 mEq/L (-2.0 to 3.0); ABG HCO3 28.7 mEQ/L (21-27); ABG Oxygen Saturation 87 % (95-98); ABG PCO2 57 mmHg (35-45); ABG PH 7.31 pH Units (7.32-7.45); ABG PO2 59 mmHg (85-104); ABG TCO2 30.4 mEq/L (20-26); Blood Gas FiO2 100 %; Blood Gas PEEP 10 cm H2O; Blood Gas Respiration Rate 16; Blood Gas VT 500 cc
[2016-10-05] MEDS: Vecuronium 50 MG in 0.9 % Sodium Chloride 150 ML IVC SCH ×2 (12:00→21:17)
[2016-10-05] MEDS ORDERED: Hydrocortisone Sodium Succ 100 MG/2 ML VIAL IVP ONE (12:55)
[2016-10-05] MEDS ORDERED: Amiodarone Premix 360 MG/200 ML BAG IVC ONE (12:58)
[2016-10-05] MEDS: Lacri-Lube 3.5 GM TUBE BOTH EYES SCH ×3 (13:00→21:15)
[2016-10-05] MEDS: Vasopressin 40 UNIT in D5% in Water 100 ML IV SCH (13:00)
[2016-10-05 13:03] LABS: ABG Base Excess -1.9 mEq/L (-2.0 to 3.0); ABG HCO3 28.3 mEQ/L (21-27); ABG Oxygen Saturation 86 % (95-98); ABG PO2 67 mmHg (85-104); ABG TCO2 30.8 mEq/L (20-26)
[2016-10-05 13:04] LABS: ABG PH 7.14 pH Units (7.32-7.45)
[2016-10-05 13:05] LABS: ABG PCO2 83 mmHg (35-45); Blood Gas FiO2 100 %; Blood Gas Respiration Rate 20
[2016-10-05 13:06] LABS: Blood Gas PEEP 12 cm H2O; Blood Gas VT 400 cc
[2016-10-05] MEDS ORDERED: EPINEPHrine 1 MG in D5% in Water 250 ML IVC STA (13:32)
[2016-10-05 13:43] LABS: Hematocrit 32.2 % (37.5-50.1); Hemoglobin 9.5 g/dL (12.9-16.9); Mean Corpuscular HGB Conc 29.5 g/dL (31.6-35.5); Mean Corpuscular Hemoglobin 26.5 pg (28.0-33.3); Mean Corpuscular Volume 89.9 fL (83.0-100.0); Platelet Count 343 K/mcL (140-400); Red Blood Count 3.58 M/mcL (4.19-5.50); Red Cell Distribution Width 15.3 % (11.5-14.5)
[2016-10-05 13:47] LABS: ABG Base Excess 1.2 mEq/L (-2.0 to 3.0); ABG HCO3 31.4 mEQ/L (21-27); ABG Oxygen Saturation 92 % (95-98); ABG PO2 79 mmHg (85-104); ABG TCO2 34.1 mEq/L (20-26)
[2016-10-05 13:48] LABS: ABG PCO2 88 mmHg (35-45); ABG PH 7.16 pH Units (7.32-7.45)
[2016-10-05 13:49] LABS: Blood Gas FiO2 100 %; Blood Gas PEEP 10 cm H2O; Blood Gas Respiration Rate 28; Blood Gas VT 400 cc
[2016-10-05 13:50] LABS: INR 1.7; Prothrombin Time 18.9 Seconds (9.4-12.1)
[2016-10-05 13:57] LABS: Albumin 2.4 g/dL (3.5-5.0); BUN/Creatinine Ratio 59 (6-26); Blood Urea Nitrogen 70 mg/dL (8-26); Calcium 8.6 mg/dL (8.6-10.8); Carbon Dioxide 27 mEq/L (19-29); Chloride 100 mEq/L (98-109); Glucose 361 mg/dL (70-99); Osmolality,Calculated 329 (280-300); Phosphorous 5.6 mg/dL (2.3-4.7); Potassium 3.8 mEq/L (3.5-4.5); Sodium 142 mEq/L (136-145); eGFR For African Americans > 60 (> 60); eGFR For Non-African Americans 60 (> 60)
[2016-10-05 14:15] LABS: Lymphocytes # 1.4 K/mcL (0.6-4.6); Monocytes # 2.8 K/mcL (0.0-1.3); Neutrophils # 42.2 K/mcL (1.6-8.9); Platelet Estimate Normal (Normal)
[2016-10-05 15:00] LABS: ABG Base Excess -1.1 mEq/L (-2.0 to 3.0); ABG HCO3 29.2 mEQ/L (21-27); ABG Oxygen Saturation 90 % (95-98); ABG PO2 75 mmHg (85-104); ABG TCO2 31.7 mEq/L (20-26)
[2016-10-05 15:01] LABS: ABG PH 7.17 pH Units (7.32-7.45)
[2016-10-05 15:02] LABS: ABG PCO2 80 mmHg (35-45); Blood Gas FiO2 100 %; Blood Gas PEEP 10 cm H2O; Blood Gas Respiration Rate 30; Blood Gas VT 430 cc
[2016-10-05 15:07] LABS: Ionized Calcium 1.16 mmol/L (1.15-1.35)
[2016-10-05] MEDS: SULFAMETHOXAZOLE IVPB SCH ×2 (15:15→22:20)
[2016-10-05] MEDS: D5 IVPB SCH ×2 (15:15→22:20)
[2016-10-05] MEDS: TRIMETH IVPB SCH ×2 (15:15→22:20)
[2016-10-05] MEDS: WATER IVPB SCH ×2 (15:15→22:20)
[2016-10-05] MEDS ORDERED: 0.9 % Sodium Chloride 1,000 ML IVC ONE (15:19)
[2016-10-05] MEDS ORDERED: *HR* FentaNYL (PF) 100 MCG/2 ML VIAL IVP ONE (15:20)
[2016-10-05] MEDS ORDERED: *HR* Midazolam HCl 2 MG/2 ML VIAL IVP ONE (15:22)
[2016-10-05 15:34] LABS: Magnesium 2.3 mg/dL (1.6-2.6)
[2016-10-05 15:47] LABS: Vancomycin,Trough 14.6 mcg/mL (10-20)
[2016-10-05 16:00] LABS: ABG Base Excess -1.2 mEq/L (-2.0 to 3.0); ABG HCO3 29.2 mEQ/L (21-27); ABG Oxygen Saturation 84 % (95-98); ABG PO2 62 mmHg (85-104); ABG TCO2 31.7 mEq/L (20-26)
[2016-10-05 16:04] LABS: ABG PCO2 80 mmHg (35-45); ABG PH 7.17 pH Units (7.32-7.45); Blood Gas FiO2 90 %; Blood Gas PEEP 8 cm H2O; Blood Gas Respiration Rate 36; Blood Gas VT 380 cc
[2016-10-05] MEDS: Voriconazole 500 MG in 0.9 % Sodium Chloride 250 ML IVPB SCH (16:23)
--- NOTE | 2016-10-05 16:48 | Electrocardiograph Report ---
[address] [place], [place] [address] Test Date: 2016-10-04 Pat Name: Santy Phillips Department: 109 Room: [facility] Gender: M Box Maker: SCOUT : 1940 Requested By: Jerel Stafford Order Number: [id number] Reading MD: Guerrero Romero MD Measurements Intervals [place] Rate: 88 P: [place]: 0 QRS: -1 QRSD: 104 T: 217 QT: 367 QTc: 413 Interpretive Statements ATRIAL FIBRILLATION WITH ABERRANT CONDUCTION OR VENTRICULAR PREMATURE COMPLEXES INFERIOR MYOCARDIAL INFARCTION, OF INDETERMINATE AGE LATERAL ISCHEMIA Electronically Signed On 10-05-2016 16:46:58 EDT by Guerrero Romero MD
[2016-10-05 17:17] LABS: ABG Base Excess -1.5 mEq/L (-2.0 to 3.0); ABG HCO3 28.1 mEQ/L (21-27); ABG Oxygen Saturation 85 % (95-98); ABG PO2 63 mmHg (85-104); ABG TCO2 30.5 mEq/L (20-26)
--- NOTE | 2016-10-05 17:22 | ECHO - Doppler Report ---
Echocardiogram Name: Santy Phillips Date of Study: 10/05/2016 Date: 1940 Ht: 68.0 in Medical Record#: [id number] Age: 75 Wt: 181.0 lb Gender: Male BSA: 1.96 Order #: [id number] Location: [facility] Room #: IC Reading Physician: Samuel Reis MD, [facility] Solo Truck Driver: Denise Bowers RDCS Ordering Physician: Jerel Stafford DO Primary Physician: None Indications: ROSC Impressions: Technically sub-optimal due to clinical status (supine, on ventilator). Normal LV systolic function, LVEF 70%. Indeterminate diastolic function due to atrial fibrillation. Mild dilated right ventricle. Mild right ventricular hypokinesis. Moderately dilated right atrium. Moderate tricuspid regurgitation. Severe pulmonary hypertension. Estimated RVSP = 61 mmHg. Ordering physician has been paged to discuss abnormal findings. Findings: Study Quality * Technically sub-optimal due to clinical status (supine, on ventilator). ECG Findings * Atrial fibrillation. Left Ventricle * Normal LV systolic function, LVEF 70%. * Normal LV chamber size and wall thickness. * Indeterminate diastolic function due to atrial fibrillation. Right Ventricle * Mild dilated right ventricle. Mild right ventricular hypokinesis. Left Atrium * Normal left atrial size. Right Atrium * Moderately dilated right atrium. Aorta * Normally sized aortic root. Pericardium * There is no pericardial effusion present. IVC * The IVC is not dilated. Aortic Valve * Trileaflet aortic valve. * Mildly sclerotic aortic valve leaflets. * No aortic stenosis. * Trace aortic regurgitation. Mitral Valve * Mild mitral annular calcification * No mitral stenosis. * Trace mitral regurgitation. Tricuspid Valve * Normal tricuspid valve structure. * No tricuspid stenosis. * Moderate tricuspid regurgitation. * Severe pulmonary hypertension. Estimated RVSP = 61 mmHg. Pulmonic Valve * Normal pulmonic valve structure. * No pulmonic stenosis. * Trace pulmonic regurgitation. History Hypertension Diabetes Hypercholesteremia Family History of CAD 09/22/2016 a Previous Echo was performed. Measurements: BP: 111/ 60 2D Normal Values RVIDd: 4.30 cm IVSd: .90 cm 0.6 - 1.0 cm LVIDd: 4.10 cm 3.7 - 5.6 cm LVPWd: 1.00 cm 0.6 - 1.1 cm LVIDs: 2.30 cm 1.5 - 3.6 cm AO: 3.40 cm < 4.0 cm LA volume: 43 Tricuspid Valve TV Regurg Peak Grad: 56.00mmHg TV Regurg Peak Carlos: 3.80m/sec Updated by Samuel Reis MD, [facility] on 10/05/2016 5:15:33 PM electronically signed on 10/05/2016 5:16:27 PM with status of Final
[2016-10-05 17:23] LABS: ABG PCO2 77 mmHg (35-45); ABG PH 7.17 pH Units (7.32-7.45); Blood Gas FiO2 100 %
[2016-10-05] MEDS: Hydrocortisone Sodium Succ 100 MG/2 ML VIAL IVP SCH (17:30)
[2016-10-05] MEDS: *HR* Heparin 5,000 UNIT/ML VIAL SQ SCH ×2 (18:41→22:19)
[2016-10-05] MEDS ORDERED: Vancomycin 1,250 MG in D5% in Water 250 ML IVPB SCH (19:00)
[2016-10-05 20:33] LABS: Hemoglobin 9.3 g/dL (12.9-16.9)
[2016-10-05 20:34] LABS: Hematocrit 30.2 % (37.5-50.1); Lymphocytes # 0.9 K/mcL (0.6-4.6); Mean Corpuscular HGB Conc 30.8 g/dL (31.6-35.5); Mean Corpuscular Hemoglobin 27.4 pg (28.0-33.3); Mean Corpuscular Volume 89.1 fL (83.0-100.0); Mean Platelet Volume 11.1 fL (9.4-12.4); Platelet Count 309 K/mcL (140-400); Red Blood Count 3.39 M/mcL (4.19-5.50); Red Cell Distribution Width 15.4 % (11.5-14.5)
[2016-10-05 20:34] LABS: ABG Base Excess -2.2 mEq/L (-2.0 to 3.0); ABG HCO3 26.7 mEQ/L (21-27); ABG Oxygen Saturation 84 % (95-98); ABG PO2 60 mmHg (85-104); ABG TCO2 28.8 mEq/L (20-26)
[2016-10-05] MEDS: Norepinephrine 4 MG in D5% in Water 250 ML IVC SCH ×2 (20:34→23:23)
[2016-10-05 20:35] LABS: Blood Gas FiO2 100 %
[2016-10-05 20:37] LABS: ABG PCO2 70 mmHg (35-45); ABG PH 7.19 pH Units (7.32-7.45)
[2016-10-05 20:40] LABS: Ionized Calcium 1.09 mmol/L (1.15-1.35)
[2016-10-05 20:45] LABS: Albumin 2.3 g/dL (3.5-5.0); Calcium 7.9 mg/dL (8.6-10.8); Magnesium 2.3 mg/dL (1.6-2.6); Phosphorous 5.3 mg/dL (2.3-4.7); Potassium 4.4 mEq/L (3.5-4.5)
[2016-10-05 20:59] LABS: Monocytes # 4.4 K/mcL (0.0-1.3); Neutrophils # 38.9 K/mcL (1.6-8.9); Platelet Estimate Normal (Normal)
[2016-10-05 21:00] LABS: Anisocytosis 1+ (Not Present); Basophilic Stippling 1+ (Not Present)
[2016-10-05] MEDS ORDERED: Sodium Bicarbonate 150 MEQ in D5% in Water 1,000 ML IVC SCH (21:00)
[2016-10-05 21:01] LABS: Platelet Clumps Few (Not Present)
[2016-10-05 21:02] LABS: Stomatocytes 1+ (Not Present)
[2016-10-05] MEDS: EPINEPHrine 1 MG in D5% in Water 250 ML IVC SCH (21:04)
[2016-10-05] MEDS: Chlorhexidine Rinse 15 ML MOUTHWASH MM SCH (21:15)
[2016-10-05] MEDS: Insulin Human Regular 100 UNIT in 0.9 % Sodium Chloride 100 ML IVC SCH (22:13)
[2016-10-06] MEDS: Lacri-Lube 3.5 GM TUBE BOTH EYES SCH ×7 (00:33→23:47)
[2016-10-06] MEDS: FentaNYL (PF) 1,000 MCG in 0.9 % Sodium Chloride 80 ML IVC SCH ×4 (00:34→21:08)
[2016-10-06] MEDS: EPINEPHrine 1 MG in D5% in Water 250 ML IVC SCH ×2 (00:38→04:56)
[2016-10-06 00:44] LABS: ABG Base Excess -0.5 mEq/L (-2.0 to 3.0); ABG HCO3 29.6 mEQ/L (21-27); ABG Oxygen Saturation 92 % (95-98); ABG PO2 82 mmHg (85-104); ABG TCO2 32.3 mEq/L (20-26)
[2016-10-06 00:54] LABS: Blood Gas FiO2 100 %
[2016-10-06 00:55] LABS: ABG PCO2 87 mmHg (35-45); ABG PH 7.14 pH Units (7.32-7.45)
[2016-10-06] MEDS ORDERED: Hydrocortisone Sodium Succ 100 MG/2 ML VIAL IVP SCH (01:12)
[2016-10-06 01:33] LABS: ABG Base Excess -0.3 mEq/L (-2.0 to 3.0); ABG Oxygen Saturation 90 % (95-98); ABG PO2 75 mmHg (85-104); ABG TCO2 32.7 mEq/L (20-26)
[2016-10-06 01:34] LABS: Albumin 2.3 g/dL (3.5-5.0); Calcium 7.7 mg/dL (8.6-10.8); Phosphorous 4.9 mg/dL (2.3-4.7); Potassium 3.4 mEq/L (3.5-4.5)
[2016-10-06 01:36] LABS: ABG PH 7.14 pH Units (7.32-7.45); Blood Gas FiO2 100 %
[2016-10-06 01:37] LABS: ABG PCO2 88 mmHg (35-45)
[2016-10-06] MEDS: Potassium Chloride 40 MEQ/200 ML BAG IVPB PRN ×2 (01:51→06:46)
[2016-10-06] MEDS: Norepinephrine 4 MG in D5% in Water 250 ML IVC SCH (02:13)
[2016-10-06] MEDS: Sodium Phosphate 30 MMOL in D5% in Water 100 ML IVPB PRN (02:15)
[2016-10-06] MEDS: Insulin Human Regular 100 UNIT in 0.9 % Sodium Chloride 100 ML IVC SCH ×3 (02:20→08:08)
[2016-10-06] MEDS: Sodium Bicarbonate 150 MEQ in D5% in Water 1,000 ML IVC SCH ×2 (02:28→06:14)
[2016-10-06 02:57] LABS: ABG Base Excess -1.1 mEq/L (-2.0 to 3.0); ABG HCO3 28.5 mEQ/L (21-27); ABG Oxygen Saturation 86 % (95-98); ABG PO2 66 mmHg (85-104)
[2016-10-06 02:58] LABS: Blood Gas FiO2 100 %
[2016-10-06 02:59] LABS: ABG PCO2 80 mmHg (35-45); ABG PH 7.16 pH Units (7.32-7.45)
[2016-10-06] MEDS: Insulin LISPRO 300 UNITS/3 ML VIAL SQ SCH (04:41)
[2016-10-06 04:54] LABS: INR 1.5
[2016-10-06 04:55] LABS: Hematocrit 29.8 % (37.5-50.1); Hemoglobin 9.1 g/dL (12.9-16.9); Mean Corpuscular HGB Conc 30.5 g/dL (31.6-35.5); Mean Corpuscular Hemoglobin 27.1 pg (28.0-33.3); Mean Corpuscular Volume 88.7 fL (83.0-100.0); Mean Platelet Volume 11.1 fL (9.4-12.4); Platelet Count 295 K/mcL (140-400); Red Blood Count 3.36 M/mcL (4.19-5.50); Red Cell Distribution Width 14.9 % (11.5-14.5)
[2016-10-06] MEDS: Meropenem 1,000 MG in 0.9 % Sodium Chloride Mini Bag 100 ML IVPB SCH ×2 (05:00→15:37)
[2016-10-06 05:12] LABS: Albumin 2.2 g/dL (3.5-5.0); Calcium 7.6 mg/dL (8.6-10.8); Phosphorous 5.2 mg/dL (2.3-4.7); Potassium 3.6 mEq/L (3.5-4.5)
[2016-10-06 05:13] LABS: ABG Base Excess -0.9 mEq/L (-2.0 to 3.0); ABG HCO3 29.2 mEQ/L (21-27); ABG Oxygen Saturation 86 % (95-98); ABG PO2 66 mmHg (85-104); ABG TCO2 31.7 mEq/L (20-26)
[2016-10-06 05:15] LABS: Blood Gas FiO2 100 %
[2016-10-06 05:16] LABS: ABG PCO2 82 mmHg (35-45); ABG PH 7.16 pH Units (7.32-7.45)
[2016-10-06 05:19] LABS: Lymphocytes # 2.2 K/mcL (0.6-4.6); Platelet Estimate Normal (Normal)
[2016-10-06] MEDS: Voriconazole 500 MG in 0.9 % Sodium Chloride 250 ML IVPB SCH (05:44)
[2016-10-06 06:01] LABS: ABG Base Excess 1.7 mEq/L (-2.0 to 3.0); ABG HCO3 30.2 mEQ/L (21-27); ABG Oxygen Saturation 88 % (95-98); ABG PH 7.23 pH Units (7.32-7.45); ABG PO2 64 mmHg (85-104); ABG TCO2 32.4 mEq/L (20-26)
[2016-10-06 06:06] LABS: ABG PCO2 72 mmHg (35-45); Blood Gas FiO2 100 %
[2016-10-06] MEDS: *HR* Heparin 5,000 UNIT/ML VIAL SQ SCH ×3 (06:17→20:41)
[2016-10-06] MEDS: EPINEPHrine 1 MG in 0.9 % Sodium Chloride 250 ML IVC SCH (06:31)
[2016-10-06] MEDS: Norepinephrine 4 MG in 0.9 % Sodium Chloride 250 ML IVC SCH ×3 (06:32→14:22)
[2016-10-06] MEDS: Vecuronium 50 MG in 0.9 % Sodium Chloride 150 ML IVC SCH ×2 (06:49→17:44)
[2016-10-06] MEDS ORDERED: Sodium Bicarbonate 150 MEQ in D5% in Water 1,000 ML IVC SCH (07:01)
[2016-10-06] MEDS: D5 IVPB SCH ×3 (08:07→22:50)
[2016-10-06] MEDS: TRIMETH IVPB SCH ×3 (08:07→22:50)
[2016-10-06] MEDS: WATER IVPB SCH ×3 (08:07→22:50)
[2016-10-06] MEDS: SULFAMETHOXAZOLE IVPB SCH ×3 (08:07→22:50)
[2016-10-06] MEDS: Chlorhexidine Rinse 15 ML MOUTHWASH MM SCH ×2 (08:15→20:41)
[2016-10-06] MEDS: Pantoprazole 40 MG VIAL IVP SCH (08:16)
--- NOTE | 2016-10-06 08:19 | Pulmonology Progress Note ---
<Jerel Stafford - Last Filed: 10/06/16 11:34> Date of Encounter: 10/04/16 Time of Encounter: 11:03 Assessment and Plan (1) ARDS (adult respiratory distress syndrome) Current Visit: Yes Status: Acute 75 y/o male hx of COPD, afib, CVA, diabetes, HTN [facility] with worsening SOB. He was recently discharged from [facility] with diagnosis of ARF with hypoxia and hypercapnia, RLL pneumonia and deconditioning. He was treated with levaquin and cefepime previously. At rehab his respiratory status was worsening an oxygen requirement increasing. Patient to 5 L of O2 to maintain saturations above 90%. Patient was transferred from floor to ICU due to worsening respiratory status on BIPAP saturation in 80%. CXR shows diffuse patchy opacities. CT 09/23/15 shows air bronchogram, ground glass opacities, dialated left atrium. ABG pH 7.46, p CO2 41 PO2 50. A-a gradient-48.5 PaO2/FiO2 ratio is 50. BNP 28 No edema on physical exam EKG afib rate 70 previous ECho LVEF 60-65% dilated left atrium with mitral regurg, mild pulmonary hypertension. Echo done yesterday shows EF of 70% with right ventricular hypokenesis and right atrial dilation and severe pulmonary hypertension. Worsening respiratory status within last week, PaO2/FiO2 50, bilateral diffuse airway opacities on CXR, cardiogenic etiology less likely: BNP 28, no edema on exam, echo states indeterminate diastolic dysfunction however patient has dilated left atrium. PLAN: Overnight bicarb drip was added. Will wean off. Patient is now on fentanyl, porpofol, versed, vecuronium, vasopressin and levophed with epinephrine on hold. WBC tredning down to 37 Started PCP and Aspergillius coverage with Bactrim and Voriconazole respectively day 2. Continue vancomycin and meropenam day 3 decrease hydrocortizone dose to 25mg and d/c tomorrow. ABG shows pH 7.33 with PCo2 of 66 and PO2 of 55. Ventilator set with rate 36 and Tidal volume of 420. We have greater lung recruitment as seen with the improving pCO2. Peak pressure 38-39 range and plateau pressure 18 His CODE STATUS is changed to DNR CCA. (2) Sepsis Current Visit: Yes Status: Acute plan as above. unkown eitology as of now. Cultures negative. Qualifiers: Sepsis type: sepsis due to unspecified organism Qualified Code(s): A41.9 - Sepsis, unspecified organism (3) Supratherapeutic INR Current Visit: Yes Status: Resolved On warfarin for Afib. Admission INR 4.1. Reverse with 2 FFP and vitamin K Now INR 1.5. on heparin SQ No signs of bleeding on exam Hgb is 9.1. He has received >3L fluid today most likely dilution (4) Atrial fibrillation Current Visit: Yes Status: Acute controlled. rate controlled on amiodarone EKG shows afib rate is 70. INR 1.5 start dvt prophylaxis Qualifiers: Atrial fibrillation type: chronic Qualified Code(s): I48.2 - Chronic atrial fibrillation (5) Hypotension Current Visit: Yes Status: Acute Most likely 2nd septic shock. Organism unknown On vasopressin and levophed with epinephrine on hold Has received 3L of 0.9% NS bolus. has r. arterial line continue to monitor Qualifiers: Hypotension type: unspecified hypotension type Qualified Code(s): I95.9 - Hypotension, unspecified (6) Hx of diabetes mellitus Current Visit: Yes Status: Chronic hx of DM. patient is NPO Became hyperglycemic overnight and started on insulin gtt 2nd to steroids, and infusions containing dextrose will wean down steroids and bicarb continue insulin gtt. (7) Goals of care, counseling/discussion Current Visit: Yes Status: Acute Family notified that patients prognosis is very poor. DNRCCA Subjective Principal diagnosis: acute respiratory failure with hypoxia Interval history: Overnight patient became hyperglycemic and insulin gtt was started. He was also started on bicarb drip and required temporary infusion of epinephrine due to hypotension. He is currently off of epinephrine and continues to be on vasopressin and levaphed. No other acute events overnight. Objective PUL Vital signs: Last Vital Signs Temp 96.9 F L 10/06/16 04:00 Pulse 86 10/06/16 07:00 Resp 36 10/06/16 07:00 BP 102/51 10/06/16 07:00 Pulse Ox 90 L 10/06/16 07:00 General appearance: comatose Neck: no JVD Effort: other (VC+ on ARDS protocol) Auscultation: bilateral: diminished breath sounds Cardiovascular: irregular rhythm (afib) Gastrointestinal: normoactive bowel sounds, soft, tender, non-distended Integumentary: normal, other (r. femoral central line, r. radial arterial line. left midline ) Extremities: no cyanosis, no edema, no clubbing, pink and warm unable to assess due to mental status Ventilator Settings Ventilator Settings: Ventilator Settings, Last 8 Hours Ventilator Mode A/C Ventilator Mode A/C Ventilator Mode A/C Ventilator Mode A/C Ventilator Mode A/C Ventilator Mode A/C Ventilator Mode A/C Ventilator Mode A/C Ventilator Mode A/C Ventilator Mode A/C Ventilator Mode A/C Ventilator Mode A/C Ventilator Mode A/C Ventilator Mode A/C Ventilator Tidal Volume 480 Setting Ventilator Tidal Volume 460 Setting Ventilator Tidal Volume 460 Setting Ventilator Tidal Volume 480 Setting Ventilator Tidal Volume 430 Setting Ventilator Tidal Volume 430 Setting Ventilator Tidal Volume 430 Setting Ventilator Tidal Volume 430 Setting Ventilator Tidal Volume 430 Setting Ventilator Tidal Volume 430 Setting Ventilator Tidal Volume 400 Setting Ventilator Tidal Volume 360 Setting Ventilator Tidal Volume 400 Setting Ventilator Tidal Volume 360 Setting Ventilator Respiratory Rate 36 Setting Ventilator Respiratory Rate 36 Setting Ventilator Respiratory Rate 36 Setting Ventilator Respiratory Rate 36 Setting Ventilator Respiratory Rate 36 Setting Ventilator Respiratory Rate 36 Setting Ventilator Respiratory Rate 36 Setting Ventilator Respiratory Rate 36 Setting Ventilator Respiratory Rate 36 Setting Ventilator Respiratory Rate 36 Setting Ventilator Respiratory Rate 36 Setting Ventilator Respiratory Rate 36 Setting Ventilator Respiratory Rate 36 Setting Ventilator Respiratory Rate 36 Setting Actual Respiratory Rate 36 Actual Respiratory Rate 36 Actual Respiratory Rate 36 Actual Respiratory Rate 36 Actual Respiratory Rate 36 Actual Respiratory Rate 36 Actual Respiratory Rate 36 Actual Respiratory Rate 36 Actual Respiratory Rate 36 Positive End Expiratory 5 Pressure Positive End Expiratory 5 Pressure Positive End Expiratory 5 Pressure Positive End Expiratory 5 Pressure Positive End Expiratory 5 Pressure Positive End Expiratory 5 Pressure Positive End Expiratory 5 Pressure Positive End Expiratory 5 Pressure Positive End Expiratory 5 Pressure Positive End Expiratory 5 Pressure Positive End Expiratory 5 Pressure Positive End Expiratory 5 Pressure Positive End Expiratory 5 Pressure Positive End Expiratory 8 Pressure Peak Inspiratory Airway 46 Pressure Peak Inspiratory Airway 37 Pressure Peak Inspiratory Airway 41 Pressure Peak Inspiratory Airway 37 Pressure Peak Inspiratory Airway 36 Pressure Peak Inspiratory Airway 38 Pressure Peak Inspiratory Airway 35 Pressure Peak Inspiratory Airway 38 Pressure Peak Inspiratory Airway 35 Pressure Results - Laboratory Findings CBC and BMP: 10/06/16 04:30 10/06/16 04:30 ABG ABG pH 7.23 pH Units (7.32-7.45) L 10/06/16 05:55 ABG pCO2 72 mmHg (35-45) H* 10/06/16 05:55 ABG pO2 64 mmHg (85-104) L 10/06/16 05:55 ABG O2 Saturation 88 % (95-98) L 10/06/16 05:55 PT/INR, D-dimer PT 16.0 Seconds (9.4-12.1) H 10/06/16 04:30 Abnormal lab findings: Abnormal lab results WBC 37.2 K/mcL (4.3-11.1) H* 10/06/16 04:30 RBC 3.36 M/mcL (4.19-5.50) L 10/06/16 04:30 Hgb 9.1 g/dL (12.9-16.9) L 10/06/16 04:30 Hct 29.8 % (37.5-50.1) L 10/06/16 04:30 MCH 27.1 pg (28.0-33.3) L 10/06/16 04:30 MCHC 30.5 g/dL (31.6-35.5) L 10/06/16 04:30 RDW 14.9 % (11.5-14.5) H 10/06/16 04:30 Myelocytes % 2.0 % (0) H 10/05/16 13:30 Neutrophils # 32.0 K/mcL (1.6-8.9) H 10/06/16 04:30 Monocytes # 3.0 K/mcL (0.0-1.3) H 10/06/16 04:30 Clumped Platelets Few (Not Present) A 10/05/16 20:20 Basophilic Stippling 1+ (Not Present) A 10/05/16 20:20 Anisocytosis 1+ (Not Present) A 10/05/16 20:20 Stomatocytes 1+ (Not Present) A 10/05/16 20:20 PT 16.0 Seconds (9.4-12.1) H 10/06/16 04:30 ABG pH 7.23 pH Units (7.32-7.45) L 10/06/16 05:55 ABG pCO2 72 mmHg (35-45) H* 10/06/16 05:55 ABG pO2 64 mmHg (85-104) L 10/06/16 05:55 ABG HCO3 30.2 mEQ/L (21-27) H 10/06/16 05:55 ABG Total CO2 32.4 mEq/L (20-26) H 10/06/16 05:55 ABG O2 Saturation 88 % (95-98) L 10/06/16 05:55 Sodium 130 mEq/L (136-145) L 10/06/16 04:30 Chloride 92 mEq/L (98-109) L 10/06/16 04:30 BUN 64 mg/dL (8-26) H 10/06/16 04:30 Creatinine 1.49 mg/dL (0.72-1.25) H 10/06/16 04:30 Est GFR ( Amer) 56 (> 60) L 10/06/16 04:30 Est GFR (Non-Af Amer) 46 (> 60) L 10/06/16 04:30 BUN/Creatinine Ratio 43 (6-26) H 10/06/16 04:30 Glucose 530 mg/dL (70-99) H* 10/06/16 04:30 POC Glucose 326 (58-89) H 10/06/16 07:56 Calculated Osmolality 312 (280-300) H 10/06/16 04:30 Calcium 7.6 mg/dL (8.6-10.8) L 10/06/16 04:30 Ionized Calcium 1.09 mmol/L (1.15-1.35) L 10/05/16 20:20 Phosphorus 5.2 mg/dL (2.3-4.7) H 10/06/16 04:30 Troponin I 0.06 ng/mL (0-0.03) H* 10/05/16 18:00 C-Reactive Protein 42 mg/L (Less than 5) H 10/04/16 14:39 B-Natriuretic Peptide 173 pg/mL (0-100) H 10/04/16 14:22 Albumin 2.2 g/dL (3.5-5.0) L 10/06/16 04:30 Globulin 3.8 g/dL (2.4-3.5) H 10/05/16 03:15 Albumin/Globulin Ratio 0.6 (1.1-2.2) L 10/05/16 03:15 Urine Protein 30 mg/dL (Neg-Trace) H 10/04/16 14:15 Ur Squamous Epith Cells Moderate per lpf (None-Few) H 10/04/16 14:15 - Microbiology Findings Microbiology Findings: Microbiology, Last 48 Hours 10/04/16 14:39 Blood Culture - Preliminary Peripheral Venipuncture No growth. 10/04/16 14:22 Blood Culture - Preliminary Peripheral Venipuncture No growth. 10/05/16 09:45 Sputum Culture - Preliminary Sputum 10/04/16 19:30 Influenza Types A,B Antigen (AKIKO) - Final Nasopharyngeal - Diagnostic Findings Chest x-ray: report reviewed - Clinical Findings Intake & Output: Intake & Output 10/05/16 10/06/16 10/06/16 23:59 07:59 15:59 Intake Total 2196.0 / 2196.0 2509.5 / 2509.5 Output Total 250 / 250 650 / 650 Balance 1946.0 / 1946.0 1859.5 / 1859.5 Weight 89.086 kg Consult Discharge Plan - Plan Referrals: NO,PCP [Primary Care Provider] - <Yeyo Whatley - Last Filed: 10/06/16 12:11> Date of Encounter: 10/04/16 Objective PUL Vital signs: Last Vital Signs Temp 97.7 F 10/06/16 08:00 Pulse 82 10/06/16 08:00 Resp 36 10/06/16 08:37 BP 96/50 10/06/16 08:37 Pulse Ox 91 L 10/06/16 08:37 Ventilator Settings Ventilator Settings: Ventilator Settings, Last 8 Hours Ventilator Mode A/C Ventilator Mode A/C Ventilator Mode A/C Ventilator Mode A/C Ventilator Mode A/C Ventilator Mode A/C Ventilator Mode A/C Ventilator Mode A/C Ventilator Mode A/C Ventilator Mode A/C Ventilator Mode A/C Ventilator Mode A/C Ventilator Mode A/C Ventilator Tidal Volume 480 Setting Ventilator Tidal Volume 480 Setting Ventilator Tidal Volume 480 Setting Ventilator Tidal Volume 460 Setting Ventilator Tidal Volume 460 Setting Ventilator Tidal Volume 480 Setting Ventilator Tidal Volume 430 Setting Ventilator Tidal Volume 430 Setting Ventilator Tidal Volume 430 Setting Ventilator Tidal Volume 430 Setting Ventilator Tidal Volume 430 Setting Ventilator Tidal Volume 430 Setting Ventilator Tidal Volume 400 Setting Ventilator Respiratory Rate 36 Setting Ventilator Respiratory Rate 36 Setting Ventilator Respiratory Rate 36 Setting Ventilator Respiratory Rate 36 Setting Ventilator Respiratory Rate 36 Setting Ventilator Respiratory Rate 36 Setting Ventilator Respiratory Rate 36 Setting Ventilator Respiratory Rate 36 Setting Ventilator Respiratory Rate 36 Setting Ventilator Respiratory Rate 36 Setting Ventilator Respiratory Rate 36 Setting Ventilator Respiratory Rate 36 Setting Ventilator Respiratory Rate 36 Setting Actual Respiratory Rate 36 Actual Respiratory Rate 36 Actual Respiratory Rate 36 Actual Respiratory Rate 36 Actual Respiratory Rate 36 Actual Respiratory Rate 36 Actual Respiratory Rate 36 Actual Respiratory Rate 36 Actual Respiratory Rate 36 Positive End Expiratory 5 Pressure Positive End Expiratory 5 Pressure Positive End Expiratory 5 Pressure Positive End Expiratory 5 Pressure Positive End Expiratory 5 Pressure Positive End Expiratory 5 Pressure Positive End Expiratory 5 Pressure Positive End Expiratory 5 Pressure Positive End Expiratory 5 Pressure Positive End Expiratory 5 Pressure Positive End Expiratory 5 Pressure Positive End Expiratory 5 Pressure Positive End Expiratory 5 Pressure Peak Inspiratory Airway 41 Pressure Peak Inspiratory Airway 41 Pressure Peak Inspiratory Airway 46 Pressure Peak Inspiratory Airway 37 Pressure Peak Inspiratory Airway 41 Pressure Peak Inspiratory Airway 37 Pressure Peak Inspiratory Airway 36 Pressure Peak Inspiratory Airway 38 Pressure Peak Inspiratory Airway 35 Pressure Results - Laboratory Findings CBC and BMP: 10/06/16 04:30 10/06/16 04:30 ABG ABG pH 7.23 pH Units (7.32-7.45) L 10/06/16 05:55 ABG pCO2 72 mmHg (35-45) H* 10/06/16 05:55 ABG pO2 64 mmHg (85-104) L 10/06/16 05:55 ABG O2 Saturation 88 % (95-98) L 10/06/16 05:55 PT/INR, D-dimer PT 16.0 Seconds (9.4-12.1) H 10/06/16 04:30 Abnormal lab findings: Abnormal lab results WBC 37.2 K/mcL (4.3-11.1) H* 10/06/16 04:30 RBC 3.36 M/mcL (4.19-5.50) L 10/06/16 04:30 Hgb 9.1 g/dL (12.9-16.9) L 10/06/16 04:30 Hct 29.8 % (37.5-50.1) L 10/06/16 04:30 MCH 27.1 pg (28.0-33.3) L 10/06/16 04:30 MCHC 30.5 g/dL (31.6-35.5) L 10/06/16 04:30 RDW 14.9 % (11.5-14.5) H 10/06/16 04:30 Myelocytes % 2.0 % (0) H 10/05/16 13:30 Neutrophils # 32.0 K/mcL (1.6-8.9) H 10/06/16 04:30 Monocytes # 3.0 K/mcL (0.0-1.3) H 10/06/16 04:30 Clumped Platelets Few (Not Present) A 10/05/16 20:20 Basophilic Stippling 1+ (Not Present) A 10/05/16 20:20 Anisocytosis 1+ (Not Present) A 10/05/16 20:20 Stomatocytes 1+ (Not Present) A 10/05/16 20:20 PT 16.0 Seconds (9.4-12.1) H 10/06/16 04:30 ABG pH 7.23 pH Units (7.32-7.45) L 10/06/16 05:55 ABG pCO2 72 mmHg (35-45) H* 10/06/16 05:55 ABG pO2 64 mmHg (85-104) L 10/06/16 05:55 ABG HCO3 30.2 mEQ/L (21-27) H 10/06/16 05:55 ABG Total CO2 32.4 mEq/L (20-26) H 10/06/16 05:55 ABG O2 Saturation 88 % (95-98) L 10/06/16 05:55 Sodium 130 mEq/L (136-145) L 10/06/16 04:30 Chloride 92 mEq/L (98-109) L 10/06/16 04:30 BUN 64 mg/dL (8-26) H 10/06/16 04:30 Creatinine 1.49 mg/dL (0.72-1.25) H 10/06/16 04:30 Est GFR ( Amer) 56 (> 60) L 10/06/16 04:30 Est GFR (Non-Af Amer) 46 (> 60) L 10/06/16 04:30 BUN/Creatinine Ratio 43 (6-26) H 10/06/16 04:30 Glucose 530 mg/dL (70-99) H* 10/06/16 04:30 POC Glucose 252 (58-89) H 10/06/16 09:09 Calculated Osmolality 312 (280-300) H 10/06/16 04:30 Calcium 7.6 mg/dL (8.6-10.8) L 10/06/16 04:30 Ionized Calcium 1.09 mmol/L (1.15-1.35) L 10/05/16 20:20 Phosphorus 5.2 mg/dL (2.3-4.7) H 10/06/16 04:30 Troponin I 0.06 ng/mL (0-0.03) H* 10/05/16 18:00 C-Reactive Protein 42 mg/L (Less than 5) H 10/04/16 14:39 B-Natriuretic Peptide 173 pg/mL (0-100) H 10/04/16 14:22 Albumin 2.2 g/dL (3.5-5.0) L 10/06/16 04:30 Globulin 3.8 g/dL (2.4-3.5) H 10/05/16 03:15 Albumin/Globulin Ratio 0.6 (1.1-2.2) L 10/05/16 03:15 Urine Protein 30 mg/dL (Neg-Trace) H 10/04/16 14:15 Ur Squamous Epith Cells Moderate per lpf (None-Few) H 10/04/16 14:15 - Microbiology Findings Microbiology Findings: Microbiology, Last 48 Hours 10/04/16 14:39 Blood Culture - Preliminary Peripheral Venipuncture No growth. 10/04/16 14:22 Blood Culture - Preliminary Peripheral Venipuncture No growth. 10/05/16 09:45 Sputum Culture - Preliminary Sputum 10/04/16 19:30 Influenza Types A,B Antigen (AKIKO) - Final Nasopharyngeal - Clinical Findings Intake & Output: Intake & Output 10/05/16 10/06/16 10/06/16 23:59 07:59 15:59 Intake Total 2196.0 / 2196.0 2536.5 / 2536.5 196 / 196 Output Total 250 / 250 650 / 650 35 / 35 Balance 1946.0 / 1946.0 1886.5 / 1886.5 161 / 161 Weight 89.086 kg - Attending Attestation I examined this patient and my medical decision-making was reviewed with the OPERATIONS CLERK/PA/Advanced Practice Nurse/Resident Physician. I agree with the documented findings, disposition and treatment plan as described except to the extent set forth below. I spent 35min of Critical Care time with this patient. It involved decision making of high complexity to assess, manipulate, and support vital organ system failure and/or to prevent further life threatening deterioration of the patient' s condition. The time involved in the performance of separately reportable procedures was not counted toward critical care time. Neuropsych: Intubated deeply sedated and paralyzed. PERRL Pulm: Acue Severe Refractory Hypoxemic and hypercapnic respiratory failure (ARDS ) Paralyzed with VEC. Deeply sedated. Continues to have elevated PEEK/PLAT despite low TV resulting in severe acidosis s/t increase space ratio. pH better this AM with HCO3 which we will wean down. Increase PEEP as able ( limited by significantly elevate PEEK pressures). Goal pH 7.20 goal PaO2 =55 or greater Fio2 today still 100% will wean as tolerated Cards: Status post ACLS (PEA) thought hypoxia medidated. Remains on 2pressors presently . Afib on amiodarone rate controlled currently. Consulting ECHO with PEF (hyperdynamic) with evidence of acute RV pressure overload c/w hypoxia. Remains in Cardiogenic and likely distributive shock on 2 presors wean for MAP > 60 FEN-GI: NPO for now. Cont GI propylaxis Renal: Improvement in UOP today. Lytes replaced per protocol ID: Treating for Septic shock covering for HAP organisms as well as fungal and PCP given severity of lung disease and WBC count Heme/Onc: Slight down trend in H/H without overt s/s bleeding. Plts stable. Cont DVT prophylaxis. Holding LTA for Afib Endo: Hyperglyceia on insuling gtt. Decrease stress dose hydrocortisone. . Integ/MSK: skin care per ICU protocol CODE: DNRA. Prognosis remains poor but some improvement noted on today's exam.
[2016-10-06] MEDS: Vasopressin 40 UNIT in D5% in Water 100 ML IV SCH (08:21)
--- NOTE | 2016-10-06 10:00 | Cardiology Progress Note ---
<Priya Allen - Last Filed: 10/06/16 09:51> Date of Encounter: 10/04/16 Time of Encounter: 09:51 Assessment and Plan (1) PEA (Pulseless electrical activity) Current Visit: Yes Status: Acute yesterday, patient had questionable episode of cardiac arrest, rhythm was found to be PEA. He received two minutes of CPR. Patient is intubated and sedated in ICU, being treated for ARDS- management per primary service. Etiology of PEA likely secondary to ARDS Patient recently had Echo on 09/22/16 which showed LVEF 60-65%, normal LV chamber size, wall thickness and function, indeterminate diastolic function. Normal RV structure and function, mild MR, mild-moderate TR, mild pulmonary hypertension. EKG reviewed, showed Afib with some T wave inversions and ST depressions noted. No significant change compared to old EKG. troponins noted to be negative. Plan: repeat echo shows LVEF 70%, normal LV systolic function, indeterminate diastolic function due to Afib. No significant change from prior echo. It did show severe pulmonary hypertension, likely secondary to ARDS. RVSP=61. No further recommendations from cardiology standpoint. Will sign off. (2) Atrial fibrillation Current Visit: Yes Status: Acute patient received FFP and vitamin K to reverse supratherapeutic INR. Patient is on Digoxin .25mg daily, Cardizem 240mg PO daily, Toprol XL 25mg Qam at home. Patient is currently requiring two pressors. On exam, patient is in Afib, with HR in high 90s- low 100s. Management per primary team. Qualifiers: Atrial fibrillation type: chronic Qualified Code(s): I48.2 - Chronic atrial fibrillation Discussion w patient/family: The assessment and plan as outlined above was discussed with the patient and/or family members who expressed understanding and agreement. All questions were answered. Thank you for involving us in the care of your patient. Please call with any questions. Subjective Principal diagnosis: acute respiratory failure with hypoxia Interval history: 75 year old male evaluated at bedside. Patient is intubated, sedated, and on a ventilator. He remains on two pressors. Objective Vital Signs, Last 4 Hours Temp Pulse Resp BP Pulse Ox 10/06/16 09:00 82 36 104/48 90 L 10/06/16 08:37 36 96/50 91 L 10/06/16 08:00 97.7 F 82 36 122/60 91 L 10/06/16 07:00 86 36 102/51 90 L 10/06/16 06:22 36 90 L 10/06/16 06:00 94 36 112/57 90 L General: Other (intubated, sedated. ) HEENT: Atraumatic, Normocephaly Cardiac: Other (irregularly irregular rhythm. ) Lungs: Other (decreased lower lobe breath sounds noted. ) Neuro: Other (sedated) Abdomen: Soft Extremities: Other (upper extremity edema present. ) Results 10/06/16 04:30 10/06/16 04:30 Lab Results 10/05/16 10/05/16 10/05/16 10:16 13:30 13:30 WBC 47.4 H* D Hgb 9.5 L Hct 32.2 L Plt Count 343 INR 1.7 Sodium Potassium Chloride Carbon Dioxide BUN Creatinine Glucose Calcium Magnesium Troponin I 0.03 10/05/16 10/05/16 10/05/16 13:30 18:00 20:20 WBC 44.2 H* Hgb 9.3 L Hct 30.2 L Plt Count 309 INR Sodium 142 Potassium 3.8 Chloride 100 Carbon Dioxide 27 BUN 70 H Creatinine 1.19 Glucose 361 H Calcium 8.6 Magnesium 2.3 Troponin I 0.06 H* 10/05/16 10/06/16 10/06/16 20:20 01:15 04:30 WBC 37.2 H* Hgb 9.1 L Hct 29.8 L Plt Count 295 INR Sodium 132 L D 131 L Potassium 4.4 3.4 L D Chloride 94 L 92 L Carbon Dioxide 26 28 BUN 70 H 66 H Creatinine 1.45 H 1.50 H Glucose 634 H* 595 H* Calcium 7.9 L 7.7 L Magnesium 2.3 Troponin I 10/06/16 10/06/16 04:30 04:30 WBC Hgb Hct Plt Count INR 1.5 Sodium 130 L Potassium 3.6 Chloride 92 L Carbon Dioxide 28 BUN 64 H Creatinine 1.49 H Glucose 530 H* Calcium 7.6 L Magnesium 2.0 Troponin I Consult Discharge Plan - Plan Referrals: NO,PCP [Primary Care Provider] - <Elvira Ledesma - Last Filed: 10/06/16 13:16> Date of Encounter: 10/04/16 Assessment and Plan Discussion w patient/family: I examined this patient and my medical decision-making was reviewed with the [employer] EXAMINER/PA/Advanced Practice Nurse/Resident Physician. I agree with the documented findings, disposition and treatment plan. Mr. Phillips's echo demonstrated preserved LVEF. The events occurring yesterday, concerning for PEA does not represent an ACS but rather was likely secondary to underlying pulmonary process. There have been no new ECG changes and troponin was negative (now 0.6, unreliable after CPR). No further testing is warranted. Otherwise, he does have known AFIB. His medications are on hold secondary to requiring pressors. Heart rates are acceptable, 80 to low 100's. His coagulopathy has been reversed. Restart of anticoagulation per primary team. Please call with questions. No further recommendations at this time. We will sign off. Objective Vital Signs, Last 4 Hours Temp Pulse Resp BP Pulse Ox 10/06/16 13:00 105 36 98/52 90 10/06/16 12:00 98 F 102 36 111/57 96 10/06/16 11:00 101 36 117/57 90 10/06/16 10:00 82 36 104/46 89 L Results 10/06/16 04:30 10/06/16 12:00 Lab Results 10/05/16 10/05/16 10/05/16 13:30 13:30 13:30 WBC 47.4 H* D Hgb 9.5 L Hct 32.2 L Plt Count 343 INR 1.7 Sodium 142 Potassium 3.8 Chloride 100 Carbon Dioxide 27 BUN 70 H Creatinine 1.19 Glucose 361 H Calcium 8.6 Magnesium 2.3 Troponin I 10/05/16 10/05/16 10/05/16 18:00 20:20 20:20 WBC 44.2 H* Hgb 9.3 L Hct 30.2 L Plt Count 309 INR Sodium 132 L D Potassium 4.4 Chloride 94 L Carbon Dioxide 26 BUN 70 H Creatinine 1.45 H Glucose 634 H* Calcium 7.9 L Magnesium 2.3 Troponin I 0.06 H* 10/06/16 10/06/16 10/06/16 01:15 04:30 04:30 WBC 37.2 H* Hgb 9.1 L Hct 29.8 L Plt Count 295 INR 1.5 Sodium 131 L Potassium 3.4 L D Chloride 92 L Carbon Dioxide 28 BUN 66 H Creatinine 1.50 H Glucose 595 H* Calcium 7.7 L Magnesium Troponin I 10/06/16 10/06/16 04:30 12:00 WBC Hgb Hct Plt Count INR Sodium 130 L Potassium 3.6 4.0 Chloride 92 L Carbon Dioxide 28 BUN 64 H Creatinine 1.49 H Glucose 530 H* Calcium 7.6 L Magnesium 2.0 Troponin I
[2016-10-06 10:17] LABS: ABG Base Excess 5.7 mEq/L (-2.0 to 3.0); ABG HCO3 32.7 mEQ/L (21-27); ABG Oxygen Saturation 86 % (95-98); ABG PCO2 62 mmHg (35-45); ABG PH 7.33 pH Units (7.32-7.45); ABG PO2 55 mmHg (85-104); ABG TCO2 34.6 mEq/L (20-26)
[2016-10-06 10:18] LABS: Blood Gas FiO2 100 %
[2016-10-06] MEDS: Insulin Human Regular 250 UNIT in 0.9 % Sodium Chloride 250 ML IVC SCH (10:41)
[2016-10-06 12:25] LABS: ABG Base Excess 8.6 mEq/L (-2.0 to 3.0); ABG Oxygen Saturation 97 % (95-98); ABG PH 7.29 pH Units (7.32-7.45); ABG PO2 96 mmHg (85-104); ABG TCO2 39.4 mEq/L (20-26)
[2016-10-06 12:38] LABS: ABG PCO2 77 mmHg (35-45)
[2016-10-06 12:39] LABS: Blood Gas FiO2 100 %; Blood Gas PEEP 8 cm H2O; Blood Gas Respiration Rate 36; Blood Gas VT 420 cc
[2016-10-06 12:47] LABS: Ionized Calcium 0.96 mmol/L (1.15-1.35)
[2016-10-06 12:58] LABS: Phosphorous 3.3 mg/dL (2.3-4.7)
[2016-10-06] MEDS: *HR* Dextrose 50 % in Water (Syg) 50 ML SYRINGE IVP PRN (13:10)
[2016-10-06 14:08] LABS: ABG Base Excess 8.1 mEq/L (-2.0 to 3.0); ABG HCO3 36.8 mEQ/L (21-27); ABG Oxygen Saturation 85 % (95-98); ABG PH 7.26 pH Units (7.32-7.45); ABG PO2 57 mmHg (85-104); ABG TCO2 39.3 mEq/L (20-26)
[2016-10-06 14:10] LABS: ABG PCO2 82 mmHg (35-45)
[2016-10-06] MEDS: Hydrocortisone Sodium Succ 100 MG/2 ML VIAL IVP SCH ×3 (15:37→23:44)
[2016-10-06 16:12] LABS: ABG Base Excess 9.3 mEq/L (-2.0 to 3.0); ABG HCO3 37.3 mEQ/L (21-27); ABG Oxygen Saturation 82 % (95-98); ABG PH 7.31 pH Units (7.32-7.45); ABG PO2 51 mmHg (85-104); ABG TCO2 39.6 mEq/L (20-26)
[2016-10-06 16:13] LABS: ABG PCO2 74 mmHg (35-45); Blood Gas FiO2 90 %
[2016-10-06] MEDS: Norepinephrine 8 MG in 0.9 % Sodium Chloride 500 ML IVC SCH ×2 (16:24→21:20)
[2016-10-07] MEDS: FentaNYL (PF) 1,000 MCG in 0.9 % Sodium Chloride 80 ML IVC SCH ×3 (02:12→17:30)
[2016-10-07] MEDS: Vecuronium 50 MG in 0.9 % Sodium Chloride 150 ML IVC SCH ×2 (02:56→13:00)
[2016-10-07] MEDS: Meropenem 1,000 MG in 0.9 % Sodium Chloride Mini Bag 100 ML IVPB SCH (03:14)
[2016-10-07] MEDS: Lacri-Lube 3.5 GM TUBE BOTH EYES SCH ×4 (03:22→16:40)
[2016-10-07] MEDS: EPINEPHrine 1 MG in 0.9 % Sodium Chloride 250 ML IVC SCH (03:55)
[2016-10-07 04:13] LABS: Basophils % 0.1 %; Eosinophils % 0.1 %; Hematocrit 26.2 % (37.5-50.1); Immature Granulocytes % 2.9 % (0-4); Lymphocytes # 1.3 K/mcL (0.6-4.6); Lymphocytes % 5.9 %; Mean Corpuscular HGB Conc 30.5 g/dL (31.6-35.5); Mean Corpuscular Hemoglobin 26.5 pg (28.0-33.3); Mean Corpuscular Volume 86.8 fL (83.0-100.0); Mean Platelet Volume 10.6 fL (9.4-12.4); Monocytes # 1.2 K/mcL (0.0-1.3); Monocytes % 5.3 %; Nucleated Red Blood Cells 0.1 /100 WBC (0); Platelet Count 174 K/mcL (140-400); Red Blood Count 3.02 M/mcL (4.19-5.50); Segmented Neutrophils % 85.7 %
[2016-10-07 04:28] LABS: BUN/Creatinine Ratio 48 (6-26); Calcium 7.1 mg/dL (8.6-10.8); Carbon Dioxide 31 mEq/L (19-29); Chloride 94 mEq/L (98-109); Glucose 100 mg/dL (70-99); Magnesium 1.6 mg/dL (1.6-2.6); Osmolality,Calculated 290 (280-300); Potassium 4.1 mEq/L (3.5-4.5); Sodium 134 mEq/L (136-145); eGFR For African Americans > 60 (> 60); eGFR For Non-African Americans > 60 (> 60)
[2016-10-07 04:30] LABS: BUN/Creatinine Ratio 51 (6-26); Blood Urea Nitrogen 47 mg/dL (8-26); Carbon Dioxide 32 mEq/L (19-29); Chloride 95 mEq/L (98-109); Glucose 99 mg/dL (70-99); Osmolality,Calculated 290 (280-300); Potassium 4.1 mEq/L (3.5-4.5); Sodium 134 mEq/L (136-145); eGFR For African Americans > 60 (> 60); eGFR For Non-African Americans > 60 (> 60)
[2016-10-07 04:36] LABS: Albumin 1.8 g/dL (3.5-5.0); Blood Urea Nitrogen 47 mg/dL (8-26)
[2016-10-07] MEDS: TRIMETH IVPB SCH ×2 (05:11→16:39)
[2016-10-07] MEDS: SULFAMETHOXAZOLE IVPB SCH ×2 (05:11→16:39)
[2016-10-07] MEDS: WATER IVPB SCH ×2 (05:11→16:39)
[2016-10-07] MEDS: D5 IVPB SCH ×2 (05:11→16:39)
[2016-10-07] MEDS: *HR* Heparin 5,000 UNIT/ML VIAL SQ SCH ×2 (05:19→16:38)
[2016-10-07] MEDS: Norepinephrine 8 MG in 0.9 % Sodium Chloride 500 ML IVC SCH (05:22)
[2016-10-07 05:32] LABS: ABG Base Excess 11.4 mEq/L (-2.0 to 3.0); ABG HCO3 37.9 mEQ/L (21-27); ABG Oxygen Saturation 92 % (95-98); ABG PCO2 64 mmHg (35-45); ABG PH 7.38 pH Units (7.32-7.45); ABG PO2 66 mmHg (85-104); ABG TCO2 39.9 mEq/L (20-26); Blood Gas FiO2 100 %
[2016-10-07] MEDS: Sodium Phosphate 30 MMOL in D5% in Water 100 ML IVPB PRN (06:10)
--- NOTE | 2016-10-07 08:19 | Pulmonology Progress Note ---
Date of Encounter: 10/07/16 Time of Encounter: 08:19 Assessment and Plan (1) Acute on chronic respiratory failure with hypoxia and hypercapnia Current Visit: Yes Status: Acute IMPRESSION/PLAN: Neuropsych: Intubated deeply sedated and paralyzed. PERRL. Pulm: Acute Severe Refractory Hypoxemic and hypercapnic respiratory failure ( ARDS) Paralyzed with VEC. Deeply sedated. Despite multiple intervention just today with ventilator adjusting ventilation ratio patient could not be adequately ventilated to increase PEEP secondary to high peak/plateau pressures. This is a manifestation of his severity of his underlying ARDS. Although ventilation better today oxygenation has not significantly improved remains on FiO2 90-100%. I have been unable to increase PEEP passed 8 because of elevation and peak pressures. Overall I feel from a respiratory standpoint that there has not been significant progress made in last 48hours Cards: Status post ACLS (PEA) thought hypoxia medidated. Remains on 2pressors presently and cause of shock is multifactorial including distributive shock likely from sepsis as well as cardiogenic shock from RV failure from pulmonary hypertension induced by hypoxemia . He also has Afib on amiodarone but rate generally controlled. Wean 2 pressors for goal MAP >60 FEN-GI: NPO for now. Cont GI propylaxis Renal: Acceptable UOP KRUNAL has resolved Lytes replaced per protocol ID: Treating for Septic shock covering for HAP organisms as well as fungal and PCP given severity of lung disease and WBC count. Considering the escalation tomorrow based upon culture/sensitivities. Heme/Onc: Sable H/H without overt s/s bleeding. Plts stable. Cont DVT prophylaxis. Holding LTA for Afib Endo: Hyperglyceia on insulin gtt improved today. Decrease stress dose hydrocortisone. . Integ/MSK: skin care per ICU protocol CODE: DNRA. Family meeting planned for today I spent 35min of Critical Care time with this patient. It involved decision making of high complexity to assess, manipulate, and support vital organ system failure and/or to prevent further life threatening deterioration of the patient' s condition. The time involved in the performance of separately reportable procedures was not counted toward critical care time. (2) ARDS (adult respiratory distress syndrome) Current Visit: Yes Status: Acute (3) Shock circulatory Current Visit: Yes Status: Acute (4) MOSF (multiple organ systems failure) Current Visit: Yes Status: Acute (5) Type 2 diabetes mellitus Current Visit: Yes Status: Chronic Qualifiers: Diabetes mellitus complication status: with unspecified complications Diabetes mellitus usp insulin use: without terminal operator use Qualified Code( s): E11.8 - Type 2 diabetes mellitus with unspecified complications (6) Sepsis Current Visit: Yes Status: Acute Qualifiers: Sepsis type: sepsis due to unspecified organism Qualified Code(s): A41.9 - Sepsis, unspecified organism (7) Multifocal pneumonia Current Visit: Yes Status: Acute (8) Supratherapeutic INR Current Visit: Yes Status: Resolved (9) Atrial fibrillation Current Visit: Yes Status: Acute Qualifiers: Atrial fibrillation type: chronic Qualified Code(s): I48.2 - Chronic atrial fibrillation (10) Pneumonia Current Visit: No Status: Acute Qualifiers: Pneumonia type: due to unspecified organism Laterality: bilateral Lung location: unspecified part of lung Qualified Code(s): J18.9 - Pneumonia, unspecified organism (11) Goals of care, counseling/discussion Current Visit: Yes Status: Acute (12) PEA (Pulseless electrical activity) Current Visit: Yes Status: Acute Subjective Principal diagnosis: acute respiratory failure with hypoxia Interval history: Overnight pressor requirements have been able to be decreased incrementally. No significant change in ventilation/oxygenation. Patient remains intubated sedated and paralyzed. Objective PUL Vital signs: Last Vital Signs Temp 98.2 F 10/07/16 04:00 Pulse 82 10/07/16 07:53 Resp 34 10/07/16 07:52 BP 106/60 10/07/16 07:00 Pulse Ox 95 10/07/16 07:52 General appearance: other (Sedated and a medically induced coma and chemically paralyzed) Eyes: nonicteric, other (PERRL) Auscultation: bilateral: diminished breath sounds, rales Cardiovascular: irregular rhythm Gastrointestinal: absent bowel sounds, soft Integumentary: decubitus ulcer Extremities: edema pupils equal and round other (could not assess ) Ventilator Settings Ventilator Settings: Ventilator Settings, Last 8 Hours Ventilator Mode A/C Ventilator Mode A/C Ventilator Mode A/C Ventilator Mode A/C Ventilator Mode A/C Ventilator Mode A/C Ventilator Mode A/C Ventilator Mode A/C Ventilator Mode A/C Ventilator Mode A/C Ventilator Mode A/C Ventilator Mode A/C Ventilator Tidal Volume 400 Setting Ventilator Tidal Volume 400 Setting Ventilator Tidal Volume 430 Setting Ventilator Tidal Volume 430 Setting Ventilator Tidal Volume 430 Setting Ventilator Tidal Volume 430 Setting Ventilator Tidal Volume 430 Setting Ventilator Tidal Volume 430 Setting Ventilator Tidal Volume 430 Setting Ventilator Tidal Volume 430 Setting Ventilator Tidal Volume 430 Setting Ventilator Tidal Volume 430 Setting Ventilator Respiratory Rate 34 Setting Ventilator Respiratory Rate 34 Setting Ventilator Respiratory Rate 34 Setting Ventilator Respiratory Rate 34 Setting Ventilator Respiratory Rate 34 Setting Ventilator Respiratory Rate 34 Setting Ventilator Respiratory Rate 34 Setting Ventilator Respiratory Rate 34 Setting Ventilator Respiratory Rate 34 Setting Ventilator Respiratory Rate 34 Setting Ventilator Respiratory Rate 34 Setting Ventilator Respiratory Rate 34 Setting Actual Respiratory Rate 34 Actual Respiratory Rate 34 Actual Respiratory Rate 34 Actual Respiratory Rate 34 Actual Respiratory Rate 34 Actual Respiratory Rate 34 Actual Respiratory Rate 34 Actual Respiratory Rate 34 Actual Respiratory Rate 34 Actual Respiratory Rate 34 Actual Respiratory Rate 34 Positive End Expiratory 8 Pressure Positive End Expiratory 8 Pressure Positive End Expiratory 8 Pressure Positive End Expiratory 8 Pressure Positive End Expiratory 8 Pressure Positive End Expiratory 8 Pressure Positive End Expiratory 8 Pressure Positive End Expiratory 8 Pressure Positive End Expiratory 8 Pressure Positive End Expiratory 8 Pressure Positive End Expiratory 8 Pressure Positive End Expiratory 8 Pressure Peak Inspiratory Airway 44 Pressure Peak Inspiratory Airway 38 Pressure Peak Inspiratory Airway 39 Pressure Peak Inspiratory Airway 38 Pressure Peak Inspiratory Airway 43 Pressure Peak Inspiratory Airway 40 Pressure Peak Inspiratory Airway 40 Pressure Peak Inspiratory Airway 38 Pressure Peak Inspiratory Airway 39 Pressure Peak Inspiratory Airway 38 Pressure Peak Inspiratory Airway 41 Pressure Results - Laboratory Findings CBC and BMP: 10/07/16 03:50 10/07/16 03:50 ABG ABG pH 7.38 pH Units (7.32-7.45) 10/07/16 05:21 ABG pCO2 64 mmHg (35-45) H 10/07/16 05:21 ABG pO2 66 mmHg (85-104) L 10/07/16 05:21 ABG O2 Saturation 92 % (95-98) L 10/07/16 05:21 PT/INR, D-dimer PT 16.0 Seconds (9.4-12.1) H 10/06/16 04:30 Abnormal lab findings: Abnormal lab results WBC 22.2 K/mcL (4.3-11.1) H 10/07/16 03:50 RBC 3.02 M/mcL (4.19-5.50) L 10/07/16 03:50 Hgb 8.0 g/dL (12.9-16.9) L 10/07/16 03:50 Hct 26.2 % (37.5-50.1) L 10/07/16 03:50 MCH 26.5 pg (28.0-33.3) L 10/07/16 03:50 MCHC 30.5 g/dL (31.6-35.5) L 10/07/16 03:50 RDW 15.0 % (11.5-14.5) H 10/07/16 03:50 Myelocytes % 2.0 % (0) H 10/05/16 13:30 Neutrophils # 19.0 K/mcL (1.6-8.9) H 10/07/16 03:50 Nucleated RBCs/100 WBC 0.1 /100 WBC (0) H 10/07/16 03:50 Clumped Platelets Few (Not Present) A 10/05/16 20:20 Basophilic Stippling 1+ (Not Present) A 10/05/16 20:20 Anisocytosis 1+ (Not Present) A 10/05/16 20:20 Stomatocytes 1+ (Not Present) A 10/05/16 20:20 PT 16.0 Seconds (9.4-12.1) H 10/06/16 04:30 ABG pCO2 64 mmHg (35-45) H 10/07/16 05:21 ABG pO2 66 mmHg (85-104) L 10/07/16 05:21 ABG HCO3 37.9 mEQ/L (21-27) H 10/07/16 05:21 ABG Total CO2 39.9 mEq/L (20-26) H 10/07/16 05:21 ABG O2 Saturation 92 % (95-98) L 10/07/16 05:21 ABG Base Excess 11.4 mEq/L (-2.0 to 3.0) H 10/07/16 05:21 Sodium 134 mEq/L (136-145) L 10/07/16 03:50 Chloride 94 mEq/L (98-109) L 10/07/16 03:50 Carbon Dioxide 31 mEq/L (19-29) H 10/07/16 03:50 BUN 47 mg/dL (8-26) H D 10/07/16 03:50 BUN/Creatinine Ratio 48 (6-26) H 10/07/16 03:50 Glucose 100 mg/dL (70-99) H 10/07/16 03:50 POC Glucose 129 (58-89) H 10/07/16 08:07 Calcium 7.1 mg/dL (8.6-10.8) L 10/07/16 03:50 Ionized Calcium 0.92 mmol/L (1.15-1.35) L 10/07/16 03:50 Phosphorus 2.0 mg/dL (2.3-4.7) L 10/07/16 03:50 Troponin I 0.06 ng/mL (0-0.03) H* 10/05/16 18:00 C-Reactive Protein 42 mg/L (Less than 5) H 10/04/16 14:39 B-Natriuretic Peptide 173 pg/mL (0-100) H 10/04/16 14:22 Albumin 1.8 g/dL (3.5-5.0) L 10/07/16 03:50 Globulin 3.8 g/dL (2.4-3.5) H 10/05/16 03:15 Albumin/Globulin Ratio 0.6 (1.1-2.2) L 10/05/16 03:15 Urine Protein 30 mg/dL (Neg-Trace) H 10/04/16 14:15 Ur Squamous Epith Cells Moderate per lpf (None-Few) H 10/04/16 14:15 - Microbiology Findings Microbiology Findings: Microbiology, Last 48 Hours 10/04/16 14:39 Blood Culture - Preliminary Peripheral Venipuncture No growth. 10/04/16 14:22 Blood Culture - Preliminary Peripheral Venipuncture No growth. 10/05/16 09:45 Sputum Culture - Preliminary Sputum - Clinical Findings Intake & Output: Intake & Output 10/06/16 10/07/16 10/07/16 23:59 07:59 15:59 Intake Total 2167.9 / 2167.9 2046.8 / 2046.8 Output Total 140 / 140 600 / 600 Balance 2027.9 / 2027.9 1446.8 / 1446.8 Consult Discharge Plan - Plan Referrals: NO,PCP [Primary Care Provider] -
[2016-10-07] MEDS: Pantoprazole 40 MG VIAL IVP SCH (10:37)
[2016-10-07] MEDS: Hydrocortisone Sodium Succ 100 MG/2 ML VIAL IVP SCH ×2 (10:37→16:40)
[2016-10-07] MEDS: Chlorhexidine Rinse 15 ML MOUTHWASH MM SCH (10:37)
[2016-10-07 13:31] LABS: ANA IgG by ELISA NONE DETECTED (None Detected)
--- NOTE | 2016-10-07 14:28 | Event Note ---
Date of Encounter: 10/07/16 Time of Encounter: 14:23 I spoke with the patient's son (and NOK) and longtime girlfriend Gail along with several other family members at the bedside regarding clinical course I explained that despite maximal ventilatory support we still have been unsuccessful in lung recruitment or oxygenation despite medically induced coma and neuromuscular blockade secondary to severe underlying ARDS. Patient remains in shock on multiple pressors. Overall prognosis remains poor. I discussed the case at length with the patient's family and they all came to the same conclusion that Mr. Phillips would not want to be kept alive in this situation especially knowing that even with survivability of this event he would have to undoubtedly spend a long process of rehabilitation in a nursing facility which he was adamantly opposed to this is in keeping with my conversations with Mr. Phillips prior to intubation which he wanted intubation only as a last resort and clearly was not wanting advanced invasive medical care and a prolonged fashion. Given the current medical situation and respecting Mr. Phillips's wishes family has elected switch to comfort measures at this time. Neuromuscular blockade has been turned off and when rested family present sedation will be withdrawn along with vasopressors and plan for terminal extubation I spent 30 minutes discussing case with family and updating them and answering all their questions LOCOMOTIVE FIRER at bedside for entirety Pastoral care has been consulted for emotional/spiritual support
[2016-10-07] MEDS ORDERED: *HR* Morphine 2 MG/ML SYRINGE IVP PRN (14:36)
[2016-10-07] MEDS ORDERED: *HR* LORazepam 2 MG/ML VIAL IVP PRN (14:37)
[2016-10-07] MEDS ORDERED: Atropine Sulfate 300 DROP/15 ML BOTTLE SL PRN (14:38)
[2016-10-07] MEDS ORDERED: Meropenem 1,000 MG in 0.9 % Sodium Chloride Mini Bag 100 ML IVPB SCH (16:08)
[2016-10-07] MEDS: Insulin Human Regular 250 UNIT in 0.9 % Sodium Chloride 250 ML IVC SCH (16:39)
[2016-10-07 21:19] VITALS: BP 94/57
[2016-10-07] MEDS ORDERED: Aminoglycoside Consult 1 EACH MC ONE (23:22)
--- NOTE | 2016-10-08 09:57 | Electrocardiograph Report ---
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
--- NOTE | 2016-10-08 10:43 | Electrocardiograph Report ---
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
[2016-10-09 07:28] LABS: Myeloperoxidase Ab 5 AU/mL (0-19); Serine Protease-3 Antibody 0 AU/mL (0-19)
[2016-10-10 07:15] LABS: Aspergillus spp. Ab by ID NONE DETECTED (None Detected); Blastomyces dermatitidis Ab ID NONE DETECTED (None Detected); Coccidioides immitis Ab by ID NONE DETECTED (None Detected); Histoplasma spp.Ab by ID NONE DETECTED (None Detected)
--- NOTE | 2016-10-10 17:20 | Death Note ---
Discharge Sum: Summary - Date and Time Date of admission: 10/04/16 11:37 Date of : 10/07/16 Time of : 20:27 - Summary Details: This is a 75-year-old gentleman who was admitted to the hospital for worsening hypoxic respiratory failure found to have bilateral infiltrates on the second day of admission patient was intubated and had serious decompensation state including failure to oxygenate circulatory shock right heart failure multiple pressors were needed and patient was paralyzed and placed in the Medically induced coma for severe refractory hypoxemic respiratory failure. A 48 hours there were very little improvement in ability to oxygenate patient and patient remained in shock discuss case with family and they were convinced the patient would not want to undergo such therapy and CODE STATUS was changed to DNR CC patient quickly after extubation and stoppage of vasopressors. Prior to terminal extubation patient's neuromuscular blocking agents had been stopped for at least 4 hours. - Additional Data Confirmation of as documented by pronouncing clinician: no pulse, no respirations, no heart sounds, pupils fixed and dilated Family: at bedside Additional persons at bedside: jared Attending physician: Jonathon Pabon MD Was code activated?: No Autopsy requested?: No budget examiner notified?: No Organ bank notified?: No Advance directives: Yes Hospice patient?: No Discharge Sum: Diag - PCOD Probable Cause of : Adult respiratory distress syndrome Discharge Sum: Prov - Provider Primary care physician: Pal Power MD Admitting clinician: Adriel Evans Attending physician on admission: Yeyo Whatley Consults: 10/04/16 12:17 Consult to Pulmonology [CONS] Stat Consulting Provider: Pulm Crit Care & Sleep Rosalia Reason for Consult: Acute hypoxic failure, ARDS Call Completed: Yes 10/05/16 10:30 Consult to Cardiology [CONS] Stat Comment: Consulting Provider: Cardiology Shirley Reason for Consult: cardiac arrest new st depression Call Completed: Yes
== END 2016-10-07 23:23 | disposition expired | DRG 871 ==
LOC: 2NENU 11:37 → ICNU 14:15
PROVIDERS: ADMIT Internal Medicine; ATTEND Internal Medicine